=== PATIENT | female | born 1985 | race Caucasian/White ===

== ENCOUNTER → 2017-10-25 16:04 | Outpatient (CLI) | payer MEDICAID, SELFPAY ==
[2017-11-01 11:29] LABS: HPV APTIMA, High Risk Negative (Negative)
== END ==
PROVIDERS: Visit Provider Obstetrics & Gynecology
DX: Z01.419 Encounter for gynecological examination (general) (routine) without abnormal findings (principal)
CPT/HCPCS: 88175; G0145

== ENCOUNTER 2018-04-11 19:01 | Emergency (ER) | payer MEDICAID, SELFPAY ==
[2018-04-11 19:02] VITALS: BP 112/82; PULSE 97; RESP 18; TEMP 37; O2SAT 97; BMI 20.8
--- NOTE | 2018-04-11 20:06 | ED.DCSUM_ITS ---
- ER Visit Summary Date of Service: 04/11/18 Chief Complaint: Back pain History of Present Illness: The patient is a 32 F who states that she has low back pain. She notes radiation to the posterior aspect of her left thigh. She denies any muscle weakness. No bowel or bladder dysfunction. No loss of sensation. No fevers. She states she has a history of disc disease dating back approximately 13 years. She states this began 1 week ago has progressively worsened. Physical Examination: Afebrile vital signs are stable Gen: Well-nourished well-developed Head: Normocephalic atraumatic Eyes: Perrl EOMI ENT: TMs clear no rhinorrhea moist mucous membranes Neck: Supple no lymphadenopathy no JVD nontender CVS: Regular rate rhythm no murmurs normal S1-S2 Respiratory: No distress clear to auscultation bilaterally chest nontender Abdomen: Soft nontender nondistended normal bowel sounds no masses Back: Mild tenderness to palpation particularly on the right and left paraspinal musculature Extremity: Nontender no edema Skin: Normal color no rash Neuro: alert orientated ?3 CN II-XII intact normal strength sensation reflexes positive straight leg test at 35? Psych: Normal affect normal mood Emergency Department Course and Treatment: Patient appears to have acute on chronic sciatica. I did check an oars report as well as clinisync. These are negative. I will write the patient Valium a few OxyIR and ibuprofen. She is to follow-up with primary care doctor Impression: 1. Left sciatica This note was generated with [employer] dictation software. It may contain incorrect words, spelling, and punctuation that were not noted in review of the chart prior to signing ED Disposition - Plan for ED Patient: Disposition: Home or Assisted Living Chief Complaint: Back Instructions: ED Sciatica Prescriptions: Oxycodone [Oxyir] 5 mg PO Q6H PRN PRN 3 Days #12 tab PRN Reason: back pain Diazepam [Valium] 5 mg PO Q8 PRN #15 tab PRN Reason: Muscle Spasm Ibuprofen [Motrin] 800 mg PO TID PRN PRN #20 tab PRN Reason: Pain Additional Instructions: Follow Up with your primary care physician in 1 week
== END 2018-04-11 20:27 | disposition home or self-care (01) ==
PROVIDERS: Emergency Provider Emergency Medicine; Family Provider Internal Medicine; PCP Internal Medicine
DX: M54.42 Lumbago with sciatica, left side (principal); Z72.0 Tobacco use
CPT/HCPCS: 99282

== ENCOUNTER 2018-06-03 16:44 | Emergency (ER) | payer MEDICAID, SELFPAY ==
[2018-06-03 16:45] VITALS: BP 135/88; PULSE 93; RESP 14; TEMP 36.6; O2SAT 97; BMI 21.0
--- NOTE | 2018-06-03 17:42 | ED.VISSUMM ---
- ER Visit Summary Date of Service: 06/03/18 Chief Complaint: Neck and back pain History of Present Illness: The patient is a 32 F history of degenerative disc disease in her neck and back. States she had an MRI at 17 and again one in the last year or so. She is never had back surgery. She denies any recent fall or trauma or fever. States she awoke this morning and had neck and lower back pain. Denies any weakness or numbness or tingling to her upper or lower extremities. No bowel or bladder incontinence. Physical Examination: Well-appearing young female. Vital signs stable and afebrile. H EENT exam unremarkable. Neck except for the C1-2 region she has some mild lateral paraspinal tenderness. No signs of trauma. No bony deformity. She has full flexion-extension and rotation of her neck. No rigidity. Lungs clear all station bilaterally. Heart regular rate and rhythm no murmur. Abdomen soft and tender. Patient is moving all 4 extremities. The upper and lower extremities are both neurovascularly intact. She has normal 5 out of 5 carbider strength in both hands. Normal sensation. She has normal dorsi and plantar flexion both feet. Negative straight leg raise bilaterally. Sciatica or radiculopathy. Full range of motion both lower extremities. No cauda equina. No saddle anesthesia. Normal medial thigh sensation. Back she is some tenderness on the lower lumbar spine and right paraspinal soft tissue. There is no signs of redness, warmth or trauma. Neurologically she is awake and alert with no focal motor or sensory deficits. Test Results: None Emergency Department Course and Treatment: Discussed with patient options. She will be started on Naprosyn. Follow-up with her primary care physician in [place] if she is not improving or a spine surgeon for further evaluation. At this time she has absolutely no signs of spinal cord compression. Treatment Plan: Percent for pain and inflammation. Follow up with her doctor. Disposition: Discharge Impression: Acute neck and back pain with a history of degenerative disc disease. This note was generated with [employer] dictation software. It may contain incorrect words, spelling, and punctuation that were not noted in review of the chart prior to signing ED Disposition - Plan for ED Patient: Chief Complaint: Back Referrals: Benita Vizcarra MD [Primary Care Provider] -
--- NOTE | 2018-06-03 17:46 | ED.DCSUM_ITS ---
- ER Visit Summary Date of Service: 06/03/18 Chief Complaint: Neck and back pain History of Present Illness: The patient is a 32 F history of degenerative disc disease in her neck and back. States she had an MRI at 17 and again one in the last year or so. She is never had back surgery. She denies any recent fall or trauma or fever. States she awoke this morning and had neck and lower back pain. Denies any weakness or numbness or tingling to her upper or lower extremities. No bowel or bladder incontinence. Physical Examination: Well-appearing young female. Vital signs stable and afebrile. H EENT exam unremarkable. Neck except for the C1-2 region she has some mild lateral paraspinal tenderness. No signs of trauma. No bony deformity. She has full flexion-extension and rotation of her neck. No rigidity. Lungs clear all station bilaterally. Heart regular rate and rhythm no murmur. Abdomen soft and tender. Patient is moving all 4 extremities. The upper and lower extremities are both neurovascularly intact. She has normal 5 out of 5 professor of nursing strength in both hands. Normal sensation. She has normal dorsi and plantar flexion both feet. Negative straight leg raise bilaterally. Sciatica or radiculopathy. Full range of motion both lower extremities. No cauda equina. No saddle anesthesia. Normal medial thigh sensation. Back she is some tenderness on the lower lumbar spine and right paraspinal soft tissue. There is no signs of redness, warmth or trauma. Neurologically she is awake and alert with no focal motor or sensory deficits. Test Results: None Emergency Department Course and Treatment: Discussed with patient options. She will be started on Naprosyn. Follow-up with her primary care physician in [place] if she is not improving or a spine surgeon for further evaluation. At this time she has absolutely no signs of spinal cord compression. Treatment Plan: Percent for pain and inflammation. Follow up with her doctor. Disposition: Discharge Impression: Acute neck and back pain with a history of degenerative disc disease. This note was generated with [employer] dictation software. It may contain incorrect words, spelling, and punctuation that were not noted in review of the chart prior to signing ED Disposition - Plan for ED Patient: Chief Complaint: Back Referrals: Benita Vizcarra MD [Primary Care Provider] -
--- NOTE | 2018-06-03 17:46 | ED.DEP ---
ED Disposition - Plan for ED Patient: Disposition: Home or Assisted Living Chief Complaint: Back Instructions: ED Neck Back Pain General Prescriptions: Naproxen [Naprosyn] 500 mg PO BID PRN PRN #20 tab PRN Reason: Pain Referrals: Benita Vizcarra MD [Primary Care Provider] - 1 Week if not improving Additional Instructions: Hot shower warm bath to relax the muscles in your back and neck. Naprosyn for pain and inflammation. Follow-up with your doctor if not improving in 1 week. If you develop weakness, numbness or incontinence to return to the ER for further evaluation.
[2018-06-03 17:55] VITALS: BP 109/67; PULSE 84; RESP 15; O2SAT 98
== END 2018-06-03 17:56 | disposition home or self-care (01) ==
PROVIDERS: Emergency Provider Emergency Medicine; Family Provider Internal Medicine; PCP Internal Medicine
DX: M50.30 Other cervical disc degeneration, unspecified cervical region (principal); M51.36 Other intervertebral disc degeneration, lumbar region; G89.29 Other chronic pain
CPT/HCPCS: 99282

== ENCOUNTER 2018-10-26 19:22 | Emergency (ER) | payer MEDICAID, SELFPAY ==
[2018-10-26 19:23] VITALS: BP 131/89; PULSE 95; RESP 18; TEMP 37.1; O2SAT 99; BMI 20.2
[2018-10-26 20:14] LABS: Absolute Lymphocyte Count 2.03 X10^3/ul (0.83-4.51); Absolute Neutrophil Count 7.4 X10^3/uL (2.0-7.7); Basophil# 0.02 X10^3/uL; Basophil% 0.2 % (0-1); Eosinophil# 0.07 X10^3/uL; Eosinophils% 0.7 % (0-5); Hemoglobin 14.6 g/dl (12.0-15.0); Lymphocyte # 2.03 X10^3/ul (4.0); Lymphocyte % 20.3 % (19-41); Mean Corp Hgb Conc 33.2 g/gl (32-36); Mean Corpuscular Hgb 30.9 pg (27.0-32.0); Mean Corpuscular Volume 93.2 fL (81-99); Mean Platelet Vol. 9.2 fl (6.2-12.0); Monocyte# 0.49 X10^3/uL; Monocyte% 4.9 % (0-10); Neutrophil # 7.39 X10^3/uL (2.7-7.7); Neutrophil % 73.8 % (47-70); Platelet Count 295 K/mm3 (150-450); RBC Distribution Width CV 13.1 % (11.6-14.6); Red Blood Count 4.72 M/mm3 (4.2-5.4)
[2018-10-26 20:16] LABS: POSITIVE COUNT NO; POSITIVE DIFFERENTIAL NO; POSITIVE MORPHOLOGY NO
[2018-10-26 20:17] LABS: Anion Gap 7 (5-15); BUN 12 mg/dL (7-18); BUN/Creat Ratio 16.3 RATIO (10-20); Calcium,Total 8.9 mg/dL (8.5-10.1); Chloride 105 mmol/L (98-107); Creatinine, Serum 0.73 mg/dL (0.55-1.02); EST Glomerular Filtration Rate 96 mL/min (>60); Est Glom Filt Rate - Afr Amer 116 mL/min (>60); Estimated Creatinine Clearance 96.79 ml/min; Glucose 93 mg/dL (74-106); Potassium 3.3 mmol/L (3.5-5.1); Sodium Level 140 mmol/L (136-145)
[2018-10-26 20:35] LABS: Pregnancy, Serum, hCG Quali. NEGATIVE Negative (0-9 Nonpreg)
--- NOTE | 2018-10-26 21:43 | US_ITS ---
HISTORY: PAbdominal PainUS - GB, Liver, Abdomen TECHNIQUE: Transabdominal ultrasound was performed with real-time and static murphy-scale imaging. COMPARISON: None FINDINGS: # of images incl. paperwork: 85 Liver: There is normal echogenicity of the liver. The bile ducts are within normal limits. There is no demonstrated mass lesion. Gallbladder: The gallbladder is partially contracted. The gallbladder wall measures 2 mm. There is a negative sonographic Roach's sign. There is no pericholecystic fluid. There are no gallstones. Common Bile Duct: The common bile duct measures 3 mm. Pancreas: There is normal echogenicity of the pancreas. There is no demonstrated pancreatic mass or cyst. Right Kidney: Normal size of the right kidney. The right kidney measures 11.4 x 5.1 x 3.7 cm. Normal renal cortex. There is no demonstrated renal mass or cyst. There is no right hydronephrosis. US/Gallbladder IMPRESSION: Contracted gallbladder. Otherwise unremarkable right upper quadrant ultrasound. at 2324 Reported and signed by: Abebe Shelley MD Electronically Signed: Abebe Shelley, at 23:23 EDT Tel , Service support ,
[2018-10-26 22:22] LABS: Lipase 106 U/L (73-393)
[2018-10-26 22:26] LABS: AST(SGOT) 15 U/L (15-37); Alanine Aminotransfer ALT/SGPT 27 U/L (13-56); Alkaline Phosphatase 54 U/L (45-117); Bilirubin, Direct 0.08 mg/dL (0.00-0.30); Globulin 3.3 g/dL (2.2-4.2); Protein, Total 7.3 g/dL (6.4-8.2)
[2018-10-26] MEDS: Ondansetron 4 MG/2 ML Vial IV (23:00)
[2018-10-26] MEDS: Morphine 4 MG/ML Syringe IV (23:00)
[2018-10-26 23:01] VITALS: BP 144/99; PULSE 84; RESP 18; O2SAT 97
--- NOTE | 2018-10-26 23:06 | ED.DCSUM_ITS ---
- ER Visit Summary Date of Service: 10/26/18 Chief Complaint: Abdominal pain History of Present Illness: The patient is a 33 F presenting with abdominal pain. Patient states this has been ongoing for the past 3 days. Pain is in the right upper quadrant. She has associated nausea with no vomiting. She has had mild diarrhea. Denies blood in her stool. Denies fever. She has had the symptoms in the past but had no known cause at this time. Denies other complaints. Physical Examination: Vitals are stable. Patient is afebrile. Alert no acute distress. HEENT exam is unremarkable. Neck is supple. Lungs are clear and equal bilaterally. Heart is regular rate and rhythm. Abdomen is soft right upper quadrant tenderness with no rebound or guarding Extremities are unremarkable. Skin is warm and dry. No focal neurologic deficit. Remainder of exam is unremarkable. Emergency Department Course and Treatment: Patient was given morphine, Zofran IV. CBC, chemistries unremarkable other than potassium 3.3. Liver lipase are normal. HCG negative. Gallbladder ultrasound shows contracted gallbladder. Otherwise unremarkable right upper quadrant ultrasound. On reevaluation, patient is resting comfortably. She is given a prescription for Pepcid. She is advised to follow-up with her primary care physician. Advised return to ED for worsening complaints. Disposition: Discharge home Impression: Abdominal pain This note was generated with [employer] dictation software. It may contain incorrect words, spelling, and punctuation that were not noted in review of the chart prior to signing ED Disposition - Plan for ED Patient: Instructions: ED Abdominal Pain Unkn Cause Prescriptions: Famotidine [Pepcid] 20 mg PO BID #28 tablet Referrals: Benita Vizcarra MD [Primary Care Provider] -
--- NOTE | 2018-10-26 23:56 | ED.DEP ---
ED Disposition - Plan for ED Patient: Instructions: ED Abdominal Pain Unkn Cause Prescriptions: Famotidine [Pepcid] 20 mg PO BID #28 tablet Referrals: Benita Vizcarra MD [Primary Care Provider] -
[2018-10-27 00:02] VITALS: BP 119/88; PULSE 82; RESP 16; O2SAT 96
== END 2018-10-27 00:22 | disposition home or self-care (01) ==
PROVIDERS: Emergency Provider Emergency Medicine; Family Provider Internal Medicine; PCP Internal Medicine
DX: R10.11 Right upper quadrant pain (principal); R11.0 Nausea; Z87.891 Personal history of nicotine dependence
CPT/HCPCS: 76705; 80048; 80076; 83690; 84703; 85025; 96374; 96375; 99283; A4216; J2405

== ENCOUNTER 2019-11-28 12:47 | Emergency (ER) | payer MEDICAID, SELFPAY ==
[2019-11-28 12:48] VITALS: BP 144/107; PULSE 105; RESP 16; TEMP 36.4; O2SAT 100; BMI 20.9
--- NOTE | 2019-11-28 13:03 | ED.VIS.GEN ---
History of Present Illness Chief Complaint: Lower Extremity Injury Narrative: 34-year-old female presents with right knee pain. She tripped in her living room and fell on carpet 2 days ago. She has had mild pain since then. This morning she noticed redness and warmth around the abrasion that she sustained over the patella. No pain with range of motion now. She can still walk without much trouble. Onset of symptoms has been gradual. Severity is mild. No history of prior knee surgery and no history of septic joint. No fever. Capacity - Capacity Assessment Tool Can the patient make a choice & communicate that choice?: Yes Past Medical History - Allergies and Home Meds Allergies/Adverse Reactions: Allergies latex Allergy (Verified 11/28/19 12:48) Rash Sulfa (Sulfonamide Antibiotics) Allergy (Verified 11/28/19 12:48) Hives sulfamethoxazole [From Bactrim] Allergy (Verified 11/28/19 12:48) Hives trimethoprim [From Bactrim] Allergy (Verified 11/28/19 12:48) Hives Primary Care Physician: Benita Vizcarra MD [Primary Care Provider] - Prior records reviewed: Yes Smoking Status: Current every day smoker Review of Systems ROS: Unable to Obtain General: Denies: Chills, Fever, Sweats Eyes: Denies: Visual changes - bilaterally, Diplopia ENT: Denies: Rhinorrhea, Sore throat Cardiovascular: Denies: Chest pain, Palpitations Respiratory: Denies: Dyspnea, Cough, Dyspnea on exertion Gastrointestinal: Denies: Abdominal pain, Nausea, Vomiting, Diarrhea, Melena, Hematochezia Genitourinary: Denies: Dysuria, Hematuria, Frequency Musculoskeletal: Reports: Extremity Pain, - - right knee pain and redness. Denies: Back pain Skin: Denies: Rash, Wounds Neurological: Denies: Headache, Weakness, Numbness Physical Exam Vital Signs/Narrative: Vital Signs Temp Pulse Resp BP Pulse Ox 11/28/19 12:48 97.5 F L 105 H 16 144/107 H 100 General: Well nourished, Well developed, No Acute Distress Head: Normocephalic, Atraumatic Eyes: Perrl, EOMI ENT: Moist mucous membranes, No rhinorrhea Neck: Supple, Nontender Cardiovascular: Regular rate, Regular rhythm, No murmurs Respiratory: No distress, CTA bilaterally, Chest nontender Abdomen: Soft, Nontender, Nondistended, Normal bowel sounds Back: Nontender, Normal Inspection Extremities: Tenderness, - - She has mild tenderness over the prepatellar bursa. There is no pain with range of motion. Superficial abrasion. No fluctuance. Skin: Normal color, No rash, - - Mild erythema and warmth over the prepatellar bursa but no full-thickness cellulitis. Neurological: Alert, Oriented x3, Cranial nerves II-XII grossly intact, Normal Strength, Normal Sensation Psychological: Normal affect, Normal Mood Diagnostic/Tx/Re-eval - Medical Decision Making Right knee x-ray was interpreted independently by me is negative for acute process. She has no evidence of intra-articular infection. No pain with range of motion. No pain with short arc motion. No circumferential erythema, just over the patellar surface. She appears to have a patellar or prepatellar bursitis but I cannot palpate an abscess. There could be an early infection as there is slight erythema and warmth. No streaks of lymphangitis. We discussed options and elected to treat her with oral antibiotics and close orthopedic follow-up. I explained return precautions including coming back tomorrow if she is not improving, sooner if she gets rapidly worse. ED Disposition - Plan for ED Patient: Disposition: Home or Assisted Living Diagnosis: Patellar bursitis of right knee Instructions: ED Bursitis, ED Cellulitis Prescriptions: Doxycycline 100 mg PO BID #20 capsule Referrals: Benita Vizcarra MD [Primary Care Provider] -
--- NOTE | 2019-11-28 13:20 | RAD_ITS ---
STUDY: X-RAY - RIGHT KNEE REASON FOR EXAM: Female, 34 years old. FALL YESTERDAY; PAIN OVER PATELLA AND ANTERIOR KNEE TECHNIQUE: 4 view(s) of the knee. COMPARISON: None. FINDINGS: Normal visualized distal femur. Normal visualized proximal tibia and fibula. Normal proximal tibiofibular articulation. Normal medial femorotibial compartment. Normal lateral femorotibial compartment. Normal patellofemoral articulation. Prepatellar and infrapatellar soft tissue skin thickening. RAD/Knee 4 or More Views IMPRESSION: 1. Pronounced prepatellar and infrapatellar skin thickening. 2. No acute fracture or dislocation of the right knee. Electronically Signed: Darrick Baig MD at 15:14 EDT , Service support ,
--- NOTE | 2019-11-28 14:09 | ED.VIS.GEN ---
History of Present Illness Chief Complaint: Lower Extremity Injury Past Medical History - Allergies and Home Meds Allergies/Adverse Reactions: Allergies latex Allergy (Verified 11/28/19 12:48) Rash Sulfa (Sulfonamide Antibiotics) Allergy (Verified 11/28/19 12:48) Hives sulfamethoxazole [From Bactrim] Allergy (Verified 11/28/19 12:48) Hives trimethoprim [From Bactrim] Allergy (Verified 11/28/19 12:48) Hives Primary Care Physician: Benita Vizcarra MD [Primary Care Provider] - Smoking Status: Current every day smoker Physical Exam Vital Signs/Narrative: Vital Signs Temp Pulse Resp BP Pulse Ox 11/28/19 12:48 97.5 F L 105 H 16 144/107 H 100 ED Disposition - Plan for ED Patient: Disposition: Home or Assisted Living Diagnosis: Patellar bursitis of right knee Instructions: ED Bursitis, ED Cellulitis Prescriptions: Doxycycline 100 mg PO BID #20 cap Prescription Printed Referrals: Jose Martin Greenberg MD [STAFF PHYSICIAN] - As soon as possible
[2019-11-28] MEDS: Doxycycline 100 MG CAPSULE PO (14:13)
[2019-11-28 14:16] VITALS: RESP 16
--- NOTE | 2019-11-28 14:16 | ED.RN ---
REVIEWED D/C INSTRUCTIONS, FOLLOW UP CARE, PRESCRIPTION, AND S/S THAT WOULD WARRANT A RETURN TO THE ED WITH PT. PT VERBALIZED AN UNDERSTANDING AND DENIES FURTHER QUESTIONS FOR THIS RN. PT SKIN P/W/D, RESP EVEN AND UNLABORED, PT A&O X 3, NO DISTRESS NOTED. PT AMBULATED OUT OF ED, GAIT STEADY.
--- OUTSIDE RECORDS SUMMARY | 2020-05-03 08:01 | XMS RPT_ITS | CCD ---
:1985 External Reference #:[id number] Author Organization [facility] Providers Name Role Phone Thomas Vizcarra Primary Care Provider Romana Velasco Unavailable RAZ RIVERA Attending Unavailable Allergies Reported Allergen Reaction(s) Severity Date of Onset Location Latex Translations: [ LATEX] Rash 06-26-2017 - [facility] (80219) [facility] Trimethoprim Translations: [ (96331) SULFAMETHOXAZOLE-TRIMETHOPRIM ] Sulfonamides (Antibiotic) [facility] 08-23-2016 - [facility] Translations: [ SULFA (66556 ) (SULFONAMIDE ANTIBIOTICS)] Medications Medication Name Sig Date Prescriber Location Acetaminophen acetaminophen (TYLENOL) 325 [facility] Provider [facility] mg cap Take by mouth. 0 (441 95) Active Comment: Take by mouth. Amphetamine dextroamphetamine-amphetamine 08-28-2017 [facility] [place] aspartate / (ADDERALL XR) 30 mg 24 hr Provider Moris luis Amphetamine Sulfate capsule Take 30 mg by mouth once (06631) / Dextroamphetamine daily. 0 08/28/2017 Active saccharate / Dextroamphetamine Sulfate Comment: Take 30 mg by mouth once bam pineda. Benzocaine / benzocaine-menthol 04-29-2019 - Micki Hong Menthol (CEPACOL SORE THROAT, 04-11-2020 [facility] (63511) LETA-MEN,) 15-2.6 mg lozg lozenge Indications: Sore throat Take 1 Lozenge by mouth every 3 hours as needed. 60 Lozenge 0 04/29/2019 04/11/2020 Discontinued (Course of therapy completed) Comment: Take 1 Lozenge by mouth ever y 3 hours as needed. Citalopram citalopram (CELEXA) 20 mg 04-05-2020 [facility] Provider [facility] (43168) tablet TAKE 1 & 1/2 (ONE AND ONE-HALF) TABLETS BY MOUTH ONCE DAILY 0 04/05/2020 Active Comment: TAKE 1 & 1/2 (ONE AND ONE-LEES LF) TABLETS BY MOUTH ONCE DAILY cyclobenzaprine cyclobenzaprine 11-09-2019 - Yari Hong (FLEXERIL) 10 mg 04-08-2020 [facility] (4 4783) tablet Take 1 tablet by mouth every 8 hours as needed for Muscle Spasm (or pain). 14 tablet 0 11/09/2019 04/08/2020 Discontinued (Changing Therapy/Dosage Form) Comment: Take 1 tablet by mouth every 8 hours as needed for Muscle Spasm (or pain). Ethinyl Estradiol / DASETTA , 28, 04-03-2018 [facility] Provider [facility] Norethindrone 0.5/0.75/1 mg- 35 (84595) mcg per tablet Take 1 tablet by mouth once daily. 3 04/03/2018 Active DASETTA , 28, 0.5/0.75/1 mg- 35 04-03-2018 [facility] Provide [facility] (55758) mcg per tablet Take 1 tablet by mouth once daily. 3 04/03/2018 Active DASETTA , 28, 0.5/0.75/1 mg- 35 04-03-2018 [facility] Provide r [facility] (45468) mcg per tablet Take 1 tablet by mouth once daily. 3 04/03/2018 Active DASETTA , 28, 0.5/0.75/1 mg- 35 04-03-2018 [facility] Provide [facility] (46286) mcg per tablet Take 1 tablet by mouth once daily. 3 04/03/2018 Active DASETTA , 28, 0.5/0.75/1 mg- 35 04-03-2018 [facility] Provide r [facility] (80659) mcg per tablet Take 1 tablet by mouth once daily. 3 04/03/2018 Active DASETTA 7, 28, 0.5/0.75/1 mg- 35 04-03-2018 [facility] Provide [facility] (23298) mcg per tablet Take 1 tablet by mouth once daily. 3 04/03/2018 Active DASETTA 7, 28, 0.5/0.75/1 mg- 35 04-03-2018 [facility] Provide r [facility] (10055) mcg per tablet Take 1 tablet by mouth once daily. 3 04/03/2018 Active Comment: Take 1 tablet by mouth once daily. FLUoxetine FLUoxetine (PROZAC) 20 mg 04-11-2020 [facility] Provider [facility] capsule Take 20 mg by mouth (50854) once daily. 0 04/11/2020 Discontinued (Discontinued by Patient) Comment: Take 20 mg by mouth once bam ly. gabapentin gabapentin 04-22-2019 - Rocio Steele [facility] inic (NEURONTIN) 300 mg 04-11-2020 (58729) capsule Indications: Acute left-sided low back pain with left-sided sciatica Take 1 capsule by mouth three times daily for 30 days. 90 capsule 0 04/22/2019 04/11/2020 Discontinued (Course of therapy completed) Comment: Take 1 capsule by mouth thre e times daily for 30 days. hydrOXYzine hydrOXYzine pamoate 04-01-2020 [facility] Provider Alverto Huerta (VISTARIL) 25 mg capsule (44 195) TAKE 1 CAPSULE BY MOUTH TWICE DAILY NEEDED FOR ANXIETY or sleep 0 04/01/2020 Active Comment: TAKE 1 CAPSULE BY MOUTH TWIC E DAILY NEEDED FOR ANXIETY or sleep Naproxen naproxen (NAPROSYN) 11-09-2019 - Yari Harper x [facility] 500 mg tablet Take 1 04-11-2020 (49098) tablet by mouth twice daily as needed. TAKE WITH FOOD 14 tablet 0 11/09/2019 04/11/2020 Discontinued (Course of therapy completed) Comment: Take 1 tablet by mouth twice daily as needed. TAKE WITH FOOD Omeprazole omeprazole (PRILOSEC) 04-14-2019 - Micki Vizcarra Cl [facility] 20 mg capsule 04-11-2020 (41985) Indications: Right sided abdominal pain Take 1 capsule by mouth once daily. 30 capsule 2 04/14/2019 04/11/2020 Discontinued (Course of therapy completed) Comment: Take 1 capsule by mouth once daily. 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 (56843) Indications: Neck pain , Myofascial pain 1 Package twice daily. 1 Device 0 04/22/2019 Active TENS unit and [facility] 04-22-2019 [facility] (88019) Indications: Neck pain , Myofascial pain 1 Package twice daily. 1 Device 0 04/22/2019 Active TENS unit and [facility] 04-22-2019 [facility] (20539) Indications: Neck pain , Myofascial pain 1 Package twice daily. 1 Device 0 04/22/2019 Active TENS unit [facility] 04-22-2019 [facility] (03639) Indications: Neck pain , Myofascial pain 1 Package twice daily. 1 Device 0 04/22/2019 Active TENS unit [facility] 04-22-2019 [facility] (56088) Indications: Neck pain , Myofascial pain 1 Package twice daily. 1 Device 0 04/22/2019 Active TENS unit [facility] 04-22-2019 [facility] (20908) Indications: Neck pain , Myofascial pain 1 Package twice daily. 1 Device 0 04/22/2019 Active TENS unit [facility] 04-22-2019 [facility] (18508) Indications: Neck pain , Myofascial pain 1 Package twice daily. 1 Device 0 04/22/2019 Active Comment: 1 Package twice daily. tiZANidine tiZANidine (ZANAFLEX) 4 04-08-2020 Neeta A (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 7 tablet 0 04/08/2020 Active Comment: Take 0.5 tablets by mouth at bedtime as needed. Problems Category Problem Name Status Date Location Abdominal pain Right lower quadrant Active 10-30-2018 - [facility] pain (90085) Other circulatory Elevated blood-pressure Active [facility] disease reading without (20139) diagnosis of hypertension Other liver diseases Other specified Active 10-30-2018 - [facility] diseases of liver (88933) Spondylosis; Lumbar radiculopathy Active [facility] intervertebral disc (12755) disorders; other back problems Substance-related Cigarette smoker Active [facility] disorders (32974) Unclassified Patient encounter Active [facility] status (09563) Results Result Name Value Range Unit Interpretation Flag Date Location [facility] 2020[facility]04[facility]28 [facility]AG[facility]) Normal 0 [facility] JEIMY MORALES ([id number]) 1985 F [facility] Time Provider Department (79613) 04/28/20 MICKI VIZCARRAINTNIRAV During your visit today, we recorded the following informati on about you: Timur Vernon CMA 04/28/2020 1:13 PM Signed ----- Message from Micki Vizcarra sent at 04/28/2020 10:09 AM EDT ----- Labs are fairly unremarkable. No changes in management. Timur Vernon CMA 04/28/2020 1:14 PM Signed Left message informing patient of result s and no changes in management at this time. Timur Vernon CMA Allergies As of Date: 04/28/2020 Noted Allergy Reaction BACTRIM (SULFAMETHOXAZOLE-TRIMETH*08/23/2016 4 - Hives LATEX 06/26/2017 2 - Rash SULFA (SULFONAMIDE ANTIBIOTICS) 08/23/2016 4 - Hives Date Reviewed: 04/08/2020 Reviewed by: Neeta Patino (Architecture [employer]ician [employer]) KATY Gonzalez - Fully Assess ed Reason for Visit: Results [95] Prescriptions as of 04/28/2020 Sig: CITALOPRAM 20 MG TABLET TAKE 1 AND 1/2 (ONE AND ONE-NELY* HYDROXYZINE PAMOATE 25 MG CAP* TAKE 1 CAPSULE BY MOUTH TWICE * PREDNISONE 10 MG TABLET Take 4 tablets for 3 days, th* TIZANIDINE 4 MG TABLET Take 0.5 tablets by mouth at * TENS UNIT AND ELECTRODES COMB* 1 Package twice daily. ACETAMINOPHEN 325 MG CAPSULE Take by mouth. DASETTA (28) 0.5 MG(7)/* Take 1 tablet by mouth once d * DEXTROAMPHETAMINE-AMPHETAMINE* Take 30 mg by mouth once dina * Problem List As Of Date: 04/28/2020 (None) Encounter Status:Closed by TIMUR VERNON on 04/28/20 CNPN Telephone (AGINTMLW) Normal [address] [place] [address] Clinic JEIMY MORALES ([id number]) 1985 [facility] Date Time Provider Department (35535) 04/28/20 [facility] During your visit today, we recorded the following informati on about you: Rosanna Staton 04/28/2020 3:15 PM Signed No Show Documentation Jeimy Morales no showed for an appointment on 04/28/2020 chris Vizcarra MD at 11:40. She was scheduled for follow up for back pain. I called and was unable to reach patient. I mailed a l diamante letting her know to reschedule appointment. Resources discussed/offered to patient: N/A No show determined to be fault of patient: N/A This is the patients third no show in the last 12 months. Patient was rescheduled for waiting for patient to call [facility]. Letter mailed : Yes Is this the Third or Fourth No Show? 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 ACETAMINOPHEN 325 MG CAPSULE Take by mouth. DASETTA /01/25 (28) 0.5 MG(7)/* Take 1 tablet by mouth once d * DEXTROAMPHETAMINE-AMPHETAMINE* Take 30 mg by mouth once dina * Problem List As Of Date: 04/28/2020 (None) Encounter Status:Closed by ROSANNA STATON on 04/28/20 [facility] on 2 TSH Qn 1.130 0.270-4.200 uU/mL Normal 04-27-2020 [facility] (04110) Comment: Order Comment: Specimen Type : BLOOD SPECIMEN Result Comment: If the patie nt is , TSH reference range varies by gestational period: First Trimester (weeks 9-12) : 0.180-2.990 mcIU/mL Second Trimester: 0.110-3.98 0 mcIU/mL Third Trimester: 0.480-4.710 mcIU/mL Sumeet Dean, et al. A Practica l Approach for the Verifications and Determination of Site- and Trimester-Specific Reference Intervals for Thyroid Function tests in . Thyroid, 2019:29:3:412-420. Eulogio Tavares, et al. 2017 Guide lines of the [place] Thyroid Association for the Diagnosis and Management of Thyroid Disease during and the . Thyroid, 2017:27:3:315-389. Performed By: #### 99673-2, 3016-3, LIPB #### [facility] CLIA [id number] [address] [place] [address] [place] lipid panel basic o n 2020-04-27 Cholesterol [Mass/Vol] 197 <200 mg/dL Normal 020 [facility] (04937) Comment: Order Comment: Specimen Type : BLOOD SPECIMEN Result Comment: <200 mg/dL, Desirable 200-239 mg/dL, Borderline hi gh >239 mg/dL, High Performed By: #### 93691-4, 3016-3, LIPB #### [facility] CLIA [id number] [address] [place] [address] [place] Cholesterol in HDL [Mass/Vol] 70 >39 mg/dL Normal 04-27-2020 [facility] (00 000) Comment: Order Comment: Specimen Type : BLOOD SPECIMEN Result Comment: 40-59 mg/dL, Acceptable >59 mg/dL, High: Negative ri sk factor for coronary heart disease <40 mg/dL, Low: Positive ris k factor for coronary heart disease Performed By: #### 47811-3, 3016-3, LIPB #### [facility] CLIA [id number] [address] [place] [address] [place] Cholesterol in LDL [Mass/Vol] 102 <100 mg/dL High 04-27-2020 [facility] (00 000) Comment: Order Comment: Specimen Type : BLOOD SPECIMEN Result Comment: <100 mg/dL, Optimal 100-129 mg/dL, Near optimal/ above optimal 130-159 mg/dL, Borderline hi gh 160-189 mg/dL, High >189 mg/dL, Very high Secondary prevention optimal LDL Cholesterol levels are recommended to be < 70 mg/dL Performed By: #### 17442-8, 3016-3, LIPB #### [facility] CLIA [id number] [address] [place] [address] [place] Cholesterol in LDL/Cholesterol 1.46 <2.54 Normal 04-27-2020 [facility] in HDL [Mass ratio] Center (60082) Comment: Order Comment: Specimen Type : BLOOD SPECIMEN Result Comment: Reference: 1. National Cholesterol Educ ation Program ATP III Guideline At-A-Glance Quick Desk Reference: National Heart, Lung, and Blood [place]. National Institutes of Health. 2001: NIH Publication No. 01-3305. 2. An International Atherosc lerosis Society position paper: global recommendations for the management of dyslipidemia: executive summary, Atherosclerosis. 2014: 232(2):410-413. Performed By: #### 37035-6, 3016-3, LIPB #### [facility] CLIA [id number] [address] [place] [address] [place] Cholesterol in VLDL 25 <30 mg/dL Normal 04-27-2020 [facility] [Mass/Vol] [place] (0 0000) Comment: Order Comment: Specimen Type : BLOOD SPECIMEN Performed By: #### 48713-6, 3016-3, LIPB #### [facility] CLIA [id number] [address] [place] [address] [place] Cholesterol non HDL 127 <130 mg/dL Normal 04-27-2020 [facility] [Mass/Vol] [place] (0 0000) Comment: Order Comment: Specimen Type : BLOOD SPECIMEN Result Comment: <130 mg/dL, Optimal 130-159 mg/dL, Near optimal/ above optimal 160-189 mg/dL, Borderline hi gh 190-219 mg/dL, High >219 mg/dL, Very high Secondary prevention optimal non HDL Cholesterol levels are recommended to be <100 mg/dL Performed By: #### 62184-7, 3016-3, LIPB #### [facility] CLIA [id number] [address] [place] [address] [place] Cholesterol.total/Cholesterol in HDL 2.81 <5.10 Nor mal 04-27-2020 [facility] [Mass ratio] [facility] (96255) Comment: Order Comment: Specimen Type : BLOOD SPECIMEN Performed By: #### 62699-9, 3016-3, LIPB #### [facility] CLIA [id number] [address] [place] [address] [place] FASTING TIME 10 hrs Normal 04-27-2020 [facility] (77869) Comment: Order Comment: Specimen Type : BLOOD SPECIMEN Performed By: #### 97540-7, 3016-3, LIPB #### [facility] CLIA [id number] [address] [place] [address] [facility] Triglyceride [Mass/Vol] 124 <150 mg/dL Normal 2019 [facility] (04102) Comment: Order Comment: Specimen Type : BLOOD SPECIMEN Result Comment: <150 mg/dL, Normal 150-199 mg/dL, Borderline hi gh 200-499 mg/dL, High >499 mg/dL, Very high Performed By: #### 39085-5, 3016-3, LIPB #### [facility] CLIA [id number] [address] [place] [address] [facility] comp metab 2000 pnl serpl on 2020-04-27 Albumin [Mass/Vol] 4.6 3.9-4.9 g/dL Normal 04-27-2020 [facility] (08752) Comment: Order Comment: Specimen Type : BLOOD SPECIMEN Performed By: #### 82990-3, 3016-3, LIPB #### [facility] CLIA [id number] [address] [place] [address] [facility] ALP [Catalytic activity/Vol] 61 34-123 U/L Normal 1 [facility] (00 000) Comment: Order Comment: Specimen Type : BLOOD SPECIMEN Performed By: #### 20179-3, 3016-3, LIPB #### [facility] CLIA [id number] [address] [place] [address] [facility] ALT With P-5'-P [Catalytic 31 7-38 U/L Normal [facility] Medical activity/Vol] Center (62679) Comment: Order Comment: Specimen Type : BLOOD SPECIMEN Performed By: #### 42842-8, 3016-3, LIPB #### [facility] CLIA [id number] [address] [place] [address] [facility] Anion gap [Moles/Vol] 8 9-18 mmol/L Low 04-27-20 [facility] (85058) Comment: Order Comment: Specimen Type : BLOOD SPECIMEN Performed By: #### 33567-6, 3016-3, LIPB #### [facility] CLIA [id number] [address] [place] [address] [place] AST With P-5'-P [Catalytic 25 13-35 U/L Normal [facility] activity/Vol] Center (49718) Comment: Order Comment: Specimen Type : BLOOD SPECIMEN Performed By: #### 89017-0, 3016-3, LIPB #### [facility] CLIA [id number] [address] [place] [address] [place] Bilirubin [Mass/Vol] 0.3 0.2-1.3 mg/dL Normal 0 [facility] (23044) Comment: Order Comment: Specimen Type : BLOOD SPECIMEN Performed By: #### 39042-1, 3016-3, LIPB #### [facility] CLIA [id number] [address] [place] [address] [place] Calcium [Mass/Vol] 9.3 8.5-10.2 mg/dL Normal 04-27-2020 [facility] (12040) Comment: Order Comment: Specimen Type : BLOOD SPECIMEN Performed By: #### 35829-4, 3016-3, LIPB #### [facility] CLIA [id number] [address] [place] [address] [place] Chloride [Moles/Vol] 99 97-105 mmol/L Normal 0 [facility] (73952) Comment: Order Comment: Specimen Type : BLOOD SPECIMEN Performed By: #### 18520-3, 3016-3, LIPB #### [facility] CLIA [id number] [address] [place] [address] [place] CO2 [Moles/Vol] 28 22-30 mmol/L Normal 04-27-2020 [facility] (94022) Comment: Order Comment: Specimen Type : BLOOD SPECIMEN Performed By: #### 72794-4, 3016-3, LIPB #### [facility] CLIA [id number] [address] [place] [address] [place] Creatinine [Mass/Vol] 0.76 0.58-0.96 mg/dL Normal 04-27-20 [facility] (00 000) Comment: Order Comment: Specimen Type : BLOOD SPECIMEN Performed By: #### 82258-1, 3016-3, LIPB #### [facility] CLIA [id number] [address] [place] [address] [place] GFR/1.73 sq M predicted >60 mL/min/{1.73_m2} Normal 04-27-2020 [facility] among blacks [facility] (S/P/Bld) [Vol (0000 0) rate/Area] Comment: Order Comment: Specimen Type : BLOOD SPECIMEN Performed By: #### 02126-1, 3016-3, LIPB #### [facility] CLIA [id number] [address] [place] [address] [place] GFR/1.73 sq M predicted >60 mL/min/{1.73_m2} Normal 04-27-2020 [facility] among non-blacks [facility] (S/P/Bld) [Vol (0000 0) rate/Area] Comment: Order Comment: Specimen Type : BLOOD SPECIMEN Result Comment: eGFR (Estima karen GFR) Units of measure: mL/min/1.73 meters squared eGFR is derived from the ree xpressed MDRD Study equation using the following parameters: serum creatinine, age, gender and race. The creatinine assay has been calibrated to be traceable to IDMS. An eGFR <60 mL/min/1.73m2 for >3 mo nths is consistent with chronic kidney disease. Refer to KDOQI guidelines for clinical interpretation. In patients with unstable renal function, e.g. those with acute k idney injury, the eGFR may n ot accurately reflect actual GFR. Performed By: #### 90751-6, 3016-3, LIPB #### [facility] CLIA [id number] [address] [place] [address] [place] Glucose [Mass/Vol] 90 74-99 mg/dL Normal 04-27-2020 [facility] (10903) Comment: Order Comment: Specimen Type : BLOOD SPECIMEN Result Comment: The [place] Diabetes Association (ADA) provides guidance for cutoff values for fasting glucose and random glucose. The ADA defines fasting as no caloric intake for at least 8 hours. Fas ting plasma glucose results between 100 to 125 mg/dL indicate increased risk for diabetes (prediabetes). Fasting plasma glucose resul ts greater than or equal to 126 mg/dL meet the criteria for diagnosis of diabetes. In the absence of unequivocal hyperglycemia, results should be confirmed by repeat testing. In a patient with classic s ymptoms of hyperglycemia or hyperglycemic crisis, random plasma glucose results greater than or equal to 200 mg/dL meet the criteria for diagnosis of diabetes. Reference: Standards of [facility] Care in Diabetes 2016, [place] Diabetes Association. Diabetes Care. 2016.39(Suppl 1). Performed By: #### 58327-3, 3016-3, LIPB #### [facility] CLIA [id number] [address] [place] [address] [place] Potassium [Moles/Vol] 4.2 3.7-5.1 mmol/L Normal 04-27-20 [facility] (00 000) Comment: Order Comment: Specimen Type : BLOOD SPECIMEN Performed By: #### 52163-1, 3016-3, LIPB #### [facility] CLIA [id number] [address] [place] [address] [place] Protein [Mass/Vol] 7.2 6.3-8.0 g/dL Normal 04-27-2020 [facility] (27542) Comment: Order Comment: Specimen Type : BLOOD SPECIMEN Performed By: #### 94666-7, 3016-3, LIPB #### [facility] CLIA [id number] [address] [place] [address] [place] Sodium [Moles/Vol] 135 136-144 mmol/L Low 04-27-2020 [facility] (73135) Comment: Order Comment: Specimen Type : BLOOD SPECIMEN Performed By: #### 29332-6, 3016-3, LIPB #### [facility] CLIA [id number] [address] [place] [address] [facility] Urea nitrogen [Mass/Vol] 11 7-21 mg/dL Normal 04-27 [facility] (61610) Comment: Order Comment: Specimen Type : BLOOD SPECIMEN Performed By: #### 29053-1, 3016-3, LIPB #### [facility] CLIA [id number] [address] [place] [address] [place] cbc (hemogram) bld auto on 2020-04-27 Erythrocyte distribution 14.8 11.5-15.0 % Normal 04-27 [facility] (RBC) [Ratio] Center (68838) Comment: Order Comment: Specimen Type : BLOOD SPECIMEN Performed By: #### 36973-1 # ### [facility] CLIA [id number] [address] [place] [address] [place] [facility] Hematocrit (Bld) [Volume 44.0 36.0-46.0 % Normal 04-27 [facility]] [place] (00 000) Comment: Order Comment: Specimen Type : BLOOD SPECIMEN Performed By: #### 00138-1 # ### [facility] CLIA [id number] [address] [place] [address] [facility] Hemoglobin (Bld) 14.2 11.5-15.5 g/dL Normal 04-27-2020 [facility] [Mass/Vol] Center (0 0000) Comment: Order Comment: Specimen Type : BLOOD SPECIMEN Performed By: #### [id number] # ### [facility] CLIA [id number] [address] [place] [address] [facility] MCH (RBC) [Entitic mass] 31.1 26.0-34.0 pg Normal 04-27 [facility] (00 000) Comment: Order Comment: Specimen Type : BLOOD SPECIMEN Performed By: #### [id number] # ### [facility] CLIA [id number] [address] [place] [address] [place] MCHC (RBC) [Mass/Vol] 32.3 30.5-36.0 g/dL Normal 04-27-20 [facility] (00 000) Comment: Order Comment: Specimen Type : BLOOD SPECIMEN Performed By: #### [id number] # ### [facility] CLIA [id number] [address] [place] [address] [place] MCV (RBC) [Entitic vol] 96.5 80.0-100.0 fL Normal 04-27 [facility] (00 000) Comment: Order Comment: Specimen Type : BLOOD SPECIMEN Performed By: #### [id number] # ### [facility] CLIA [id number] [address] [place] [address] [place] [facility] Platelet mean volume (Bld) 9.2 9.0-12.7 fL Normal [facility] [Entitic vol] Center ([id number]) Comment: Order Comment: Specimen Type : BLOOD SPECIMEN Performed By: #### [id number] # ### [facility] CLIA [id number] [address] [place] [address] [facility] Platelets (Bld) [#/Vol] 306 150-400 k/uL Normal 2019 [facility] (00 000) Comment: Order Comment: Specimen Type : BLOOD SPECIMEN Performed By: #### 08795-0 # ### [facility] CLIA [id number] [address] [place] [address] [place] RBC (Bld) [#/Vol] 4.56 3.90-5.20 m/uL Normal 04-27-2020 [facility] ([address]) Comment: Order Comment: Specimen Type : BLOOD SPECIMEN Performed By: #### 80673-3 # ### [facility] CLIA [id number] [address] [place] [address] [place] WBC (Bld) [#/Vol] 11.33 3.70-11.00 k/uL High 04-27-2020 [facility] (32066) Comment: Order Comment: Specimen Type : BLOOD SPECIMEN Performed By: #### 61548-4 # ### [facility] CLIA [id number] [address] [place] [id number] [place] cnpn on 2020-04-22 CNPN Telephone (AGINTMLW) Normal [address] [place] [address] [facility] JEIMY MORALES ([id number]) 1985 [facility] Time Provider Department (06329) 04/22/20 MICKI VIZCARRA AGINTMLW During your visit today, we recorded the following informati on about you: Tisha Enrique 04/22/2020 9:20 AM Signed No Show Documentation Jeimy Harrington Andrew no showed for an appointment on 04/21/20 [facility] Micki Vizcarra MD at 11:40 am. She was scheduled for 2 WK F/U BP CK AND BACK PAIN PER BQ SA B. I called and spoke with the patient regarding her missed eliel ointment. Jeimy stated the reason that she missed her appointment was because scheduling error/conflict . Resources discussed/offered to patient: to reschedule. No show determined to be fault of patient: Yes This is the patients second no show in the last 12 months. Patient was rescheduled for 04/27/20 at 2:20 pm. Letter mailed : Yes Is this the Third or Fourth No Show? No Tisha Cottrell April 22, 2020 9:17 AM Allergies As of Date: 04/22/2020 Noted Allergy Reaction BACTRIM (SULFAMETHOXAZOLE-TRIMETH*08/23/2016 4 - Hives LATEX 06/26/2017 2 - Rash SULFA (SULFONAMIDE ANTIBIOTICS) 08/23/2016 4 - Hives Date Reviewed: 04/08/2020 Reviewed by: Neeta Patino (Architecture Technician [employer]) KATY Gonzalez - Fully Assess ed Reason for Visit: Missed Appointment [1304] Cmt: Second missed appointment Prescriptions as of 04/22/2020 Sig: CITALOPRAM 20 MG TABLET TAKE 1 AND 1/2 (ONE AND ONE-NELY* HYDROXYZINE PAMOATE 25 MG CAP* TAKE 1 CAPSULE BY MOUTH TWICE * PREDNISONE 10 MG TABLET Take 4 tablets for 3 days, th* TIZANIDINE 4 MG TABLET Take 0.5 tablets by mouth at * TENS UNIT AND ELECTRODES COMB* 1 Package twice daily. ACETAMINOPHEN 325 MG CAPSULE Take by mouth. DASETTA (28) 0.5 MG(7)/* Take 1 tablet by mouth once d * DEXTROAMPHETAMINE-AMPHETAMINE* Take 30 mg by mouth once dina * Problem List As Of Date: 04/22/2020 (None) Encounter Status:Closed by TISHA COTTRELL on 04/22/20 cnco on 2020-04-22 CNCO Letter Text Normal 04-22-2020 [facility] ([id number]) [facility] (AGFAMPLE) Normal [address] [place] [address] [facility] JEIMY MORALES ([id number]) 1985 [facility] Date Time Provider Department (09677) 04/11/20 MICKI VIZCARRA During your visit today, we recorded the following informati on about you: Maricarmen Houston MA 04/11/2020 11:38 AM Signed ----- Message from Neeta Patino (Architecture Technician [facility]) KATY Gonzalez sent at 04/10/2020 5:32 PM EDT ----- XR only showed moderate arthritic changes. No evidence of fr actures or dislocations. Maricarmen Houston MA 04/11/2020 11:39 AM Signed Patient notified and voiced understanding. Maricarmen Houston MA Allergies As of Date: 04/11/2020 Noted Allergy Reaction BACTRIM (SULFAMETHOXAZOLE-TRIMETH*08/23/2016 4 - Hives LATEX 06/26/2017 2 - Rash SULFA (SULFONAMIDE ANTIBIOTICS) 08/23/2016 4 - Hives Date Reviewed: 04/08/2020 Reviewed by: Neeta Patino (Architecture [employer]ician [employer]) KATY Gonzalez - Fully Assess ed Reason for Visit: Results [95] Prescriptions as of 04/11/2020 Sig: CITALOPRAM 20 MG TABLET TAKE 1 AND 1/2 (ONE AND ONE-NELY* HYDROXYZINE PAMOATE 25 MG CAP* TAKE 1 CAPSULE BY MOUTH TWICE * PREDNISONE 10 MG TABLET Take 4 tablets for 3 days, th* TIZANIDINE 4 MG TABLET Take 0.5 tablets by mouth at * FLUOXETINE 20 MG CAPSULE Take 20 mg by mouth once dina* NAPROXEN 500 MG TABLET Take 1 tablet by mouth twice * Patient not taking: Reported on 04/08/2020 BENZOCAINE 15 MG-MENTHOL 2.6 * Take 1 Lozenge by mouth every * Patient not taking: Reported on 04/08/2020 TENS UNIT AND ELECTRODES COMB* 1 Package twice daily. GABAPENTIN 300 MG CAPSULE Take 1 capsule by mouth three* OMEPRAZOLE 20 MG CAPSULE,ROXANN* Take 1 capsule by mouth once * Patient not taking: Reported on 04/08/2020 ACETAMINOPHEN 325 MG CAPSULE Take by mouth. DASETTA (28) 0.5 MG(7)/* Take 1 tablet by mouth once d * DEXTROAMPHETAMINE-AMPHETAMINE* Take 30 mg by mouth once dina * Problem List As Of Date: 04/11/2020 (None) Encounter Status:Closed by MARICARMEN HOUSTON MA on 04/11/20 xr lumbar 3v ap/lat/l5-s1 on 2020-04-08 XR LUMBAR 3V Final Report Normal 04-08-2020 [facility] on General AP/LAT/L5-S1 DATE OF EXAM: Apr 08 2020 [facility] - XR LUMBAR 3V AP/LAT/L5-S1 / (47040) PROCEDURE REASON: Lumbar radiculopathy Physician Interpretation XR LUMBAR 3V AP/LAT/L5-S1 PROVIDED HISTORY: Lumbar radiculopathy COMPARISON: 11/09/2019 TECHNIQUE: AP, lateral, and coned-down sacral views of the l umbosacral spine. Counting reference: Lumbosacral junction. For the pur poses of this report, L4-5 is considered the level of the iliac crest and assume there are 5 lumbar-type vertebrae. Anatomic variant: None. RESULT: Moderate disc space narrowing at L5-S1. Bony mineral ization appears within normal limits. Osseous alignment appears inta ct. Moderate facet degenerative changes of L4-5 and L5-S1. IMPRESSION: Lower lumbar degenerative changes. No acute frac tures seen Lens Block Gauger: SHANA Transcribe Date/Time: Apr 08 2020 5:07P Dictated by : TAMMY QUESADA MD This examination was interpreted and the report reviewed and electronically signed by: TAMMY QUESADA MD on Apr 08 2020 5:09PM EST progress on 2020-03 PROGRESS HNO ID: [id number] Normal 04-08-2020 [facility] Author: Neeta Patino (Architecture Technician [employer] Teacher) KATY Gonzalez [place] ([id number]) Service: ? Author Type: Nurse Practitioner Type: Progress Notes Filed: 04/11/2020 4:57 PM Note Text: CHIEF COMPLAINT: Jeimy Morales is a 34 year old female, patient of Dr. Julio armando, who presents for ER F/U from [facility] for pain in her right buttock t hat is radiating down her right leg. She had been moving heavy furn iture prior to the pain beginning so she decided to seek care. They did not do any imaging but gave her a Toradol injection and prescriptions f or Naproxen and Flexeril. She states the medications haven't helped much at all. She reports she is continuing to have the pain and describes it as burning and a 7/10 at its worst. She is more concerned with the weakness in her right leg/foot she is having. States she is unable to stand up on the ball of her right foot without her ankle/foot wanting to give out. A lso has been walking with a limp due to the pain and weakness. Only previ ous back injury was back in October when she fell and injured her left lower back. The history is provided by the patient. No language interpre ter was used. Back Pain This is a new problem. The current episode started more than 1 week ago. The problem occurs daily. The problem has not changed since onset.The pain is associated with lifting heavy objects. The pain is presen t in the lumbar spine. The quality of the pain is described as shooti ng and burning. The pain radiates to the right thigh and right knee . The pain is at a severity of 7/10. The pain is moderate. The symptoms ar e aggravated by bending, twisting and certain positions. The pain is the same all the time. Stiffness is present in the morning. Associated sympto ms include numbness (right foot), leg pain and weakness (right foot). P ertinent negatives include no chest pain, no fever, no weight loss, n o headaches, no abdominal pain, no abdominal swelling, no bowel incontine nce, no perianal numbness, no bladder incontinence, no dysuria, no p elvic pain, no paresthesias, no paresis and no tingling. She has tried NSAI Ds and muscle relaxants for the symptoms. The treatment provided no relief . Risk factors include lack of exercise. PAST MEDICAL HISTORY Diagnosis Date - ADHD (attention deficit hyperactivity disorder) - Post depression - Psychiatric disorder PAST SURGICAL HISTORY Procedure Laterality Date - REMOVAL OF SKIN LESION 1992 susan removed no complication Social History Tobacco Use - Smoking status: Current Some Day Smoker Packs/day: 0.50 Years: 10.00 Pack years: 5.00 Types: Cigarettes - Smokeless tobacco: Never Used Substance Use Topics - Alcohol use: Yes Comment: socially - Drug use: No ALLERGIES Allergen Reactions - Bactrim [Sulfametho* Hives - Latex Rash - Sulfa (Sulfonamide * Hives Family History Problem Relation Age of Onset - Hypertension Mother - Asthma Mother - Hypertension Father - Cancer Father lung - other (heart disease) Father - other (blood clots) Father Current Outpatient Medications Medication Sig Dispense Refill - TENS unit and electrodes cmpk 1 Package twice daily. 1 Dev ice 0 - acetaminophen (TYLENOL) 325 mg cap Take by mouth. - DASETTA 7/7/7, 28, 0.5/0.75/1 mg- 35 mcg per tablet Take 1 tablet by mouth once daily. 3 - dextroamphetamine-amphetamine (ADDERALL XR) 30 mg 24 hr ca psule Take 30 mg by mouth once daily. - citalopram (CELEXA) 20 mg tablet TAKE 1 AND 1/2 (ONE AND ONE-HALF) TABLETS BY MOUTH ONCE DAILY - hydrOXYzine pamoate (VISTARIL) 25 mg capsule TAKE 1 CAPSUL E BY MOUTH TWICE DAILY NEEDED FOR ANXIETY or sleep - predniSONE (DELTASONE) 10 mg tablet Take 4 tablets for 3 d ays, then 2 tablets for 3 days, then 1 tablet for 3 days, then stop 24 t ablet 0 - tiZANidine (ZANAFLEX) 4 mg tablet Take 0.5 tablets by mout h at bedtime as needed. 7 tablet 0 No current facility-administered medications for this visit. Review of Systems Constitutional: Negative for activity change, appetite mcmahon e, chills, diaphoresis, fatigue, fever and weight loss. Respiratory: Negative for cough, chest tightness and wheezin g. Cardiovascular: Negative for chest pain, palpitations and le g swelling. Gastrointestinal: Negative for abdominal pain and bowel inco ntinence. Genitourinary: Negative for bladder incontinence, dysuria, f requency and pelvic pain. Musculoskeletal: Positive for back pain, gait problem and my algias (RLE). Negative for arthralgias, joint swelling, neck pain and neck stiffness. Skin: Negative for color change. Neurological: Positive for weakness (right foot) and numbnes s (right foot). Negative for dizziness, tingling, light-headedness, h eadaches and paresthesias. BP 150/90 Pulse 96 Temp 99 Ht 5' 6 (1.68m) Wt 144 l b 3.2 oz (65.4kg) SpO2 96% LMP 10/20/2018 BMI 23.29 kg/(m2). Physical Exam Constitutional: She is oriented to person, place, and time a nd well-developed, well-nourished, and in no distress. BP elevated HENT: Head: Normocephalic and atraumatic. Mouth/Throat: Uvula is midline, oropharynx is clear and mois t and mucous membranes are normal. Eyes: Pupils are equal, round, and reactive to light. Neck: Normal range of motion and full passive range of motio n without pain. Neck supple. Cardiovascular: Normal rate, regular rhythm and normal heart sounds. Pulmonary/Chest: Effort normal and breath sounds normal. Musculoskeletal: Lumbar back: She exhibits decreased range of motion, tendern ess (right paraspinal muscle tenderness) and pain. She exhibits no bony tenderness, no swelling, no edema and no deformity. Back: Comments: Negative straight leg test Neurological: She is alert and oriented to person, place, an d time. She has normal motor skills, normal strength and normal reflexes . She displays no weakness. Reflex Scores: Patellar reflexes are 2+ on the right side and 2+ on the lef t side. Skin: Skin is warm, dry and intact. No rash noted. Nursing note and vitals reviewed. ASSESSMENT/PLAN: 1. Lumbar radiculopathy - ICD9: 724.4, ICD10: M54.16 (primar y diagnosis) Mechanical low back pain. She had good strength and DTRs riky aterally. Suspect possible impingement/sciatica. - Prednisone burst- see orders - Muscle relaxant- see orders - Xrays- see orders - Patient given instructions use of medications as ordered, intermittent rest, improved posture, proper lifting techniques, intermitt ent use of heat and avoiding sleeping on a heating pad - Follow up in 2 weeks and with primary care provider or noemi ner if symptoms persist or worsen - Per chart review, it appears that she has seen Dr. Ivette perez [facility] for low back pain and has been on Meloxicam previo usly. Has used a TENS unit. She was to follow up in 3 months but did not (p ossibly due to COVID pandemic). - XR LUMBAR GENERAL 3V AP/LAT/L5-S1 - PREDNISONE 10 MG TABLET - TIZANIDINE 4 MG TABLET 2. Elevated blood pressure reading without diagnosis of hype rtension - ICD9: 796.2, ICD10: R03.0 - Patient had two elevated blood pressure readings at today' s visit. Per chart review, it appears she has had elevated readings in e past. She also hasn't had any lab work completed recently. Will obtain basic labs including CMP, TSH, CBC, and lipid panel. - Encouraged dietary sodium restriction/DASH diet - Recommended regular aerobic exercise. - Recommend home blood pressure monitoring, to bring results in on next visit - Recheck in 2 weeks, sooner if needed. - Goal of BP <130/80 - Patient counseled on smoking cessation. - COMP METABOLIC PANEL - CBC - TSH BLD 3. Screening for lipid disorders - ICD9: V77.91, ICD10: Z13. 220 - LIPID PANEL BASIC 4. Cigarette smoker - ICD9: 305.1, ICD10: F17.210 - Smokes 1/2 ppd - Cessation encouraged. - Physiologic and physical aspects of tobacco addiction as w ell as strategies for quitting were discussed. - Counseling was given focusing on the harmful effects of th is addiction especially given the patient's medical condition(s) which wi ll be worsened because of the chemicals in tobacco. - Counseling was given 3-4 minutes. - Declines medication or assistance at this time. New medication(s) prescribed today: Yes: Prednisone and John flex. Discussed new medication dosage, usage, goals of therapy, an d side effects. Patient has been apprised of any potential drug int eractions to be aware of. Patient expresses understanding. Do not drink a lcohol while taking this medication. Copy of written care plan, clinical summary, treatment plan, new medications, goals, and self management requirements were gi jennifer to patient. Neeta Gonzalez APRN.KATY espinoza on 2020-04-08 CNOV Office Visit (AGFAMPLE) Normal 2019 [facility] JEIMY MORALES ([id number]) 1985 [facility] Date Time Provider Department ([id number]) 04/08/20 3:20 PM NEETA GONZALEZ (CARGO TRIMMER, RIBBON CLEANER)AGFAMPYFN During your visit today, we recorded the following informati on about you: Temperature Pulse Blood pressure Weight 99 degrees 96/minute 150/90 65.4 kg Height 1.676 m Michelle Chilel MA 04/08/2020 3:47 PM Signed Pt here for ER f/u from [facility]. States she was havi ng pain in her R buttocks and radiating down her leg. States it felt like a burning spasm. They gave naproxen, flexeril and a shot in the ER. Sta jules she feels like she has lost strength in that leg. Neeta Gonzalez APRN.KATY RIBBON CLEANER 04/11/2020 4:57 PM Signed CHIEF COMPLAINT: Jeimylio Morales is a 34 year old female , patient of Dr. Vizcarra, who presents for ER F/U from [facility] for pain in her right buttock that is radiating down her right leg. She had been moving heavy furniture p rior to the pain beginning so she decided to seek care. They did not do any imaging but gave her a Toradol injection and prescriptions for Naproxen and Flexeril. She s tates the medications haven't helped much at all. She repo rts she is continuing to have the pain and describes it as burning and a 7/10 at its worst . She is more concerned with the weakness in her right leg/foot she is having. States she is unable to stand up on the ba ll of her right foot without her ankle/foot wanting to give out. Also has been walking with a limp due to the pain and weakness. Only previous back injury was back in [place] when she fell and injured her left lower back. The history is provided by the patient. No language interpre ter was used. Back Pain This is a new problem. The current episode started mor e than 1 week ago. The problem occurs daily. The problem has not changed since onse t.The pain is associated with lifting heav y objects. The pain is present in the lumbar spine. The quality of the pain is d escribed as shooting and burning. The pain radiates to the right thigh and right knee. The p ain is at a severity of 7/10. The pain is moderate. The symptoms are aggravated by bending, twistin g and certain positions. The pain is the same all the time. Stiffness is p resent in the morning. Associated symptoms include numbness (right foot), leg pain and weakness (right foot). Pertinent negativ es include no chest pain, no fever, no weight loss, no headaches, no abdominal pain, no abdominal swelling, no bowel incontinence, no perianal numbness, no bladder incontinenc e, no dysuria, no pelvic pain, no paresthesias, no paresis and no tingling. She has tried NSAIDs and muscle relaxants for the symptoms. The treat ment provided no relief. Risk factors include lack of exercise. PAST MEDICAL HISTORY Diagnosis Date - ADHD (attention deficit hyperactivity disorder) - Post depression - Psychiatric disorder PAST SURGICAL HISTORY Procedure Laterality Date - REMOVAL OF SKIN LESION 1992 susan removed no complication Social History Tobacco Use - Smoking status: Current Some Day Smoker Packs/day: 0.50 Years: 10.00 Pack years: 5.00 Types: Cigarettes - Smokeless tobacco: Never Used Substance Use Topics - Alcohol use: Yes Comment: socially - Drug use: No ALLERGIES Allergen Reactions - Bactrim [Sulfametho* Hives - Latex Rash - Sulfa (Sulfonamide * Hives Family History Problem Relation Age of Onset - Hypertension Mother - Asthma Mother - Hypertension Father - Cancer Father lung - other (heart disease) Father - other (blood clots) Father Current Outpatient Medications Medication Sig Dispense Refill - TENS unit and electrodes cmpk 1 Package twice daily. 1 Dev ice 0 - acetaminophen (TYLENOL) 325 mg cap Take by mouth. - DASETTA 7/7/7, 28, 0.5/0.75/1 mg- 35 mcg per tablet Take 1 tablet by mouth once daily. 3 - dextroamphetamine-amphetam ine (ADDERALL XR) 30 mg 24 hr capsule Take 30 mg by mouth once daily. - citalopram (CELEXA) 20 mg tablet TAKE 1 AND 1/2 (ONE AND ONE-HALF) TABLETS BY MOUTH ONCE DAILY - hydrOXYzine pamoate (VISTARIL) 25 mg capsule TAKE 1 CAPSULE BY MOUTH TWICE DAILY NEEDED FOR ANXIETY or sleep - predniSONE (DELTASONE) 10 mg tablet Take 4 tablets for 3 days, then 2 tablets for 3 days, then 1 tablet for 3 days, then stop 24 tablet 0 - tiZANidine (ZANAFLEX) 4 mg tablet Take 0.5 tablets by [facility] at bedtime as needed. 7 tablet 0 No current facility-administered medications for this visit. Review of Systems Constitutional: Negative for activity change, appetite mcmahon e, chills, diaphoresis, fatigue, fever and weight loss. Respiratory: Negative for cough, chest tightness and wheezin g. Cardiovascular: Negative for chest pain, palpitations and le g swelling. Gastrointestinal: Negative for abdominal pain and bowel inco ntinence. Genitourinary: Negative for bladder incontinence, dysuria, frequency and pelvic pain. Musculoskeletal: Positive for back pain, gait problem and my algias (RLE). Negative for arthralgias, joint swelling, neck pain and neck stiffness. Skin: Negative for color change. Neurological: Positive for weakness (right foot) and numbn ess (right foot). Negative for dizziness, ting ling, light-headedness, headaches and paresthesias. BP 150/90 Pulse 96 Temp 99 Ht 5' 6 (1.68m) Wt 144 lb 3.2 oz (65.4kg) SpO2 96% LMP 10/20/2018 BMI 23.29 kg/(m2). Physical Exam Constitutional: She is oriented to perso n, place, and time and well-developed, well-nourished, and in no distress. BP elevated HENT: Head: Normocephalic and atraumatic. Mouth/Throat: Uvula is midline, oropharynx is clear and mois t and mucous membranes are normal. Eyes: Pupils are equal, round, and reactive to light. Neck: Normal range of motion and full passive range of mot ion without pain. Neck supple. Cardiovascular: Normal rate, regular rhythm and normal heart sounds. Pulmonary/Chest: Effort normal and breath sounds normal. Musculoskeletal: Lumbar back: She exhibits decreased range of motion, tendern ess (right paraspinal muscle tenderness) and pain. She exhibits no obdulio ny tenderness, no swelling, no edema and no deformity. Back: Comments: Negative straight leg test Neurological: She is alert and oriented to person, place, and time. She has normal motor skills, normal strength and normal reflexes. Sh e displays no weakness. Reflex Scores: Patellar reflexes are 2+ on the right side and 2+ on the lef t side. Skin: Skin is warm, dry and intact. No rash noted. Nursing note and vitals reviewed. ASSESSMENT/PLAN: 1. Lumbar radiculopathy - ICD9: 724.4, ICD10: M54.16 (primar y diagnosis) Mechanical low back pain. She had good strength and DTRs bilaterally. Suspect possible impingement/sciatica. - Prednisone burst- see orders - Muscle relaxant- see orders - Xrays- see orders - Patient given instructions use of medi cations as ordered, intermittent rest, improved posture, proper lifting techniques, intermittent us e of heat and avoiding sleeping on a heating pad - Follow up in 2 weeks and with primary care provider or s ooner if symptoms persist or worsen - Per chart review, it appea rs that she has seen Dr. Steele with [facility] for low back pain and has been on Meloxicam prev iously. Has used a TENS unit. She was to follow up in 3 months but did not (possibly due to COVID pandemic). - XR LUMBAR GENERAL 3V AP/LAT/L5-S1 - PREDNISONE 10 MG TABLET - TIZANIDINE 4 MG TABLET 2. Elevated blood pressure reading without diagnosis o f hypertension - ICD9: 796.2, ICD10: R03.0 - Patient had two elevated blood pressur e readings at today's visit. Per chart review, it appears she has had elevated readings in the past. She also hasn't had any lab work completed r ecently. Will obtain basic labs including CMP, TSH, CBC, and lipid panel. - Encouraged dietary sodium restriction/DASH diet - Recommended regular aerobic exercise. - Recommend home blood pressure monitoring, to b ring results in on next visit - Recheck in 2 weeks, sooner if needed. - Goal of BP <130/80 - Patient counseled on smoking cessation. - COMP METABOLIC PANEL - CBC - TSH BLD 3. Screening for lipid disorders - ICD9: V77.91, ICD10: Z13. 220 - LIPID PANEL BASIC 4. Cigarette smoker - ICD9: 305.1, ICD10: F17.210 - Smokes 1/2 ppd - Cessation encouraged. - Physiologic and physical aspects of tobacco ad diction as well as strategies for quitting were discussed. - Counseling was given focusing on the harmful effects of th is addiction especially given the patient's medical condition(s) which wi ll be worsened because of the chemicals in tobacco. - Counseling was given 3-4 minutes. - Declines medication or assistance at this time. New medication(s) prescribed today: Yes: Prednisone and Za naflex. Discussed new medication dosage, usage, goals of therapy, and side effects. Patient has been apprised of any potential drug interactions to be aware of. Patient expresses understanding. Do not drink alcohol while taking this medication. Copy of written care plan, clinical summary, manav atment plan, new medications, goals, and self management requirements were given to john Gonzalez APRN.KATY Gonzalez APRN.KATY ZAMBRANO 04/11/2020 4:57 PM Addendum Low Back Pain Low back pain is pain and stiffness in the small of the ba ck. With low back pain, pain may also occur in the buttocks or legs. Sim ple exercises and good posture can help most cases of low back pain. In a few cases , medications, physical therapy or surgery may be needed. The spine is made up of ring-like bones called vertebrae. The vertebrae are stacked on top of each other and form a strong c olumn that keeps the head and body standing up. Between each vertebra is a jel ly-like disk that has a tough outside edge. These disks are like cushi ons between the vertebrae. Muscles and tissues hold vertebrae in the right place. The lower back co nsists of five vertebrae. These vertebrae make up the inward curve of the l ower back. What causes low back pain? The most common cause of low back pain is overstretched or injured muscles that support the lower back. Muscles and connective tissues can become hurt from lifting or carrying heavy objects incorrectly. Muscles in the back can also become weak from a lack of exercise. Exe rcises to make the muscles in the back and abdomen strong can lessen pain. Low back pain can also b e caused by: Bad posture Standing or sitting in the same place for a long time Slipped disk; a slipped disk is when a disk between vertebrae bulges past the bones and presses against a nerve. Being very overweight Osteoporosis (thinning of bone) Osteoarthritis, which is the break down of tissues or bones of the joint Fibromyalgia, which is an illness that c auses achy, tender muscles; the person with fibromyalgia may also sleep poorly, have he adaches, and often feel tired Serious illnesses such as cancer, infection, or another illness can cause low back pain, but this is rare How is low back pain treated? Many times, low back pain can be helped by exercise an d keeping good posture while sitting, standing, and sleeping. Y ou can also learn ways to protect your back when bending, lifting, and exercising. People who are overweight might lessen low back pain by losing weight. What can I do if I have low back pain? 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 While working in the kitchen, open the cabinet under the s ink and rest your foot on the inside of the cabinet. Change feet every 5 to 15 minutes. Keep good posture by standing with your head up, shoulders s traight, chest forward, weight balanced evenly on both feet, and hips tucke d in. Sitting Make sure your chair has good lower back support. The back of the chair should be curved to give support where the small of the back meets the chair. Keep your knees a little higher than your hips b y using a foot rest or stool. Don't twist at the waist while sitting. Instead, turn your w hole body. Sleeping Sleep on your side with your knees bent. You can also put a pillow between your knees. Try not to sleep on your stomach. If you sleep on your back, put pillows under your knees and a small pillow under the small of your back. Lifting objects Before you lift a heavy object, get a firm footing. Be nd your knees to lower yourself to the level of the object, josselyn ping your lower back straight. Tighten your stomach muscles and lif t the object using your leg muscles. Don't jerk the object up to your body. Never bend from the waist with you r knees straight. If you are lifting an object from a table, slide it to the edge of the table so that you can hold it close to your body. Bend your knees so that you are close to the object. Use your legs to lift the object and come to a standing position. Avoid lifting heavy objects above waist level. Hold packages close to your body with your arms bent. References National [place] for Neu[employer] Disorders and Stro ke. Low Back Pain Fact Sheet. Accessed 11/11/2012 [employer]. Low Back Pain. A ccessed 11/11/2012 [employer]. Back Pain Facts AND Sta tistics. Accessed 11/11/2012 Tip SD, Jaja S, Pancesar RS. Back pain made simple: an approach based on principles and evidence. [facility] J Med. 2009;76:393?399 ? Copyright 0326-6316 [facility]. All r ights reserved This information is provided by the [facility] and i s not intended to replace the medical advice of your doctor or health care pro vider. Please consult your health care provider for advice about a specifi c medical condition. For additional health information, please conta ct the Center for Consumer Health Information at the [facility] [phone] CESSATION Stopping smoking is the most important thing you can do to protect your current and future health, as well as that of your famil y. It is the most potent risk factor for the future develo pment of coronary artery disease and heart attacks. Smoking is both an addiction and a learned behavior. T he nicotine withdrawal takes anywhere from 2-4 weeks and results in symptoms such as irritability, fatigue, insomnia, coughing, dizziness, poor concentration, hunger and cigarette cravings. After the nicotine withdrawa l period, the learned linkage between certain acts or situations and cigarette use remain. Strategies to deal with these must be deve loped along with new behaviors to ensure successful smoking cessation. STRATEGIES TOWARD SMOKING CESSATION - Make a list of the reasons why you want to quit, plus the benefits to be gained, and compare them to the reasons why you should issa nue to smoke. - Pick a specific quit date. - If you are interested in using nicotine patches or gum t o assist with the nicotine withdrawal, let the staff know. - Inform friends, family, and co-workers that you are quitting and when your quit date is. Ask for their understanding and support. - Prepare your environment by removing a ll cigarettes prior to your quit date. - Prior to your quit date, avoid smoking in places where y ou spend a lot of time (such as the house, work, car). - From previous quit attempts, identify what helped you to s top smoking. - From previous quit attempts, identify what triggered rel apse. How can you avoid that again? - What things (situations, emotions) do you anticipate will be most challenging, especially in the first few weeks, to your quit ting effort? - What can you do to address these challenges? - Avoid (or limit) alcohol consumption during the quitting p rocess. - If your spouse or close coworker robbin ntly smoke, consider quitting together or at the very least, develop specific plans to maintain you r cigarette abstinence while in the home or at work. - Take each day, each hour, each craving, one at a time. Every step or action you take toward smoking cessation is a success. The only trino lure is the failure to try. - The health of you and your family, is worth the effort. STOP SMOKING CHECK LIST Preparing to Quit: ___ Make a personal pact with yourself to quit. ___ Pick a date for quitting completely. (My date to quit is ____.) ___ Write down on a card the three most importan t reasons for quitting. Carry the card with you from now on. Look at it several times a da y. ___ Prior to quitting, nedra gayle smoking completely in 2 or 3 of your high risk situations. ___ Reduce consumption to one pack per day or less. ___ Change to a less desirable brand of cigarettes. ___ Discard your test manager. Use matches. Carry your cigarett es in a different place. ___ Spend a little time each day picturing in your mind stre ssful events occurring in the future and you not smoking. Actual Quitting: The First Two Weeks ___ Get rid of all cigarettes. Put away all smoking relate d objects such as ashtrays. Ask the people you live with not to smoke in your presence for the first two weeks. ___ Spend as much time as possible with non-smoking people. ___ Keep busy, especially on evenings and weekends. ___ Avoid high risk situations (large parties, bars, etc.). ___ Spend lots of time in places that prohibit or discoura ge smoking (e.g., theaters, libraries.) ___ Drink plenty of fluids. ___ Don't substitute food or sugar based products for cigarettes. Use approved substitutions. (... ice water, high bulk/low calorie foods, sugarless gum, mouthwash, brushing teeth.) ___ Begin or increase regular exercise program. ___ When experiencing withdrawal effects: 1. Remind yourself why you are quitting (from your card). 2. Remind yourself that whatever discomfort you are experien cing is only a tiny fraction of the probable discomfort ass ociated with continued smoking. 3. Practice deep breathing or other relaxation techniques - tapes. ___ Remind yourself that you can free yo urself from this unhealthy, expensive, messy habit and become a non-smoker. Maintenance of Quitting: After two weeks ___ Remind yourself that the desire to smoke is linked to a great many situations, people and emotional stress. ___ When you do have a desire to smoke, remember that it onl y lasts a few seconds: distract yourself and leave the situation if necess lucho. ___ After each desire to smoke has passed, pat y ourself on the back, you have just made progress in breaking the habit forever. ___ Save the money on wasted on cigarettes in a special fund and buy yourself something nice. Maintenance of Quitting: After Two Months ___ Be particularly vigilant when unusual life events occur. (.. weddings, holidays, vacations.) ___ Be particularly vigilant when stressful life events occu r (e.g., relationship problems, financial or work problems.) ___ Remind yourself regularly that not smoking is completely within your personal control. ___ Never lull yourself into thinking yo u are out of danger and you can safely have a cigarette or two. -- you cannot!!!!! ___ If, by chance, you do sl ip and have one or more cigarettes, do not conclude that all is lost. Return to complete abstinence imme diately and learn from your experience. ___ If you have gained signi ficant weight since quitting, now is the time to do something about it. ___ Each time you see a cigarettes advertisement, jarrett nd yourself of why you quit. Also remember that a [employer] spends bi llions of dollars each year trying to get people like yourself re-hooked. index#4371 Referring Provider: SELF [200] Allergies As of Date: 04/08/2020 Noted Allergy Reaction BACTRIM (SULFAMETHOXAZOLE-TRIMETH*08/23/2016 4 - Hives LATEX 06/26/2017 2 - Rash SULFA (SULFONAMIDE ANTIBIOTICS) 08/23/2016 4 - Hives Date Reviewed: 04/08/2020 Reviewed by: Neeta Patino ([employer]) KATY Gonzalez - Fully Assess ed Reason for Visit: ER F/U [41] Cmt: Leg pain/spasms Reason For Visit History Recorded Primary Visit Diagnosis:Lumbar radiculopathy [M54.16] Other Visit Diagnoses:Elevated blood pressure reading withou t diagnosis of hypertension [R03.0] Screening for lipid disorders [Z13.220] Cigarette smoker [F17.210] Order(s):XR LUMBAR GENERAL 3 V AP/LAT/L5-S1 [[id number]] Order #: [id number] FUTURE predniSONE (DELTASONE) 10 mg tabletTake 4 tablets for 3 days , then 2 tablets for 3 days, then 1 tablet for 3 days, then stopDisp: 24 tabletRfl: 0 COMP METABOLIC PANEL [SQCMP] Order #: [id number] FUTURE CBC [SQCBC] Order #: [id number] FUTURE TSH BLD [SQTSH] Order #: [id number] FUTURE LIPID PANEL BASIC [SQLIPB] Order #: [id number] FUTURE tiZANidine (ZANAFLEX) 4 mg tabletTake 0.5 tablets by mouth a t bedtime as needed.Disp: 7 tabletRfl: 0 Prescriptions as of 04/08/2020 Sig: TENS UNIT AND ELECTRODES COMB* 1 Package twice daily. ACETAMINOPHEN 325 MG CAPSULE Take by mouth. DASETTA (28) 0.5 MG(7)/* Take 1 tablet by mouth once d * DEXTROAMPHETAMINE-AMPHETAMINE* Take 30 mg by mouth once dina * CITALOPRAM 20 MG TABLET TAKE 1 AND 1/2 (ONE AND ONE-NELY* HYDROXYZINE PAMOATE 25 MG CAP* TAKE 1 CAPSULE BY MOUTH TWICE * PREDNISONE 10 MG TABLET Take 4 tablets for 3 days, th* TIZANIDINE 4 MG TABLET Take 0.5 tablets by mouth at * Problem List As Of Date: 04/08/2020 (None) Other instructions from your clinician: Low Back Pain Low back pain is pain and stiffness in the small of the back . With low back pain, pain may also occur in the buttocks or legs. Simp le exercises and good posture can help most cases of low back pain. In a few cases, medications, physical therapy or surgery may be needed. The spine is made up of ring-like bones called vertebrae. Th e vertebrae are stacked on top of each other and form a strong column th at keeps the head and body standing up. Between each vertebra is a jelly- like disk that has a tough outside edge. These disks are like cushions betw een the vertebrae. Muscles and tissues hold vertebrae in the right p lace. The lower back consists of five vertebrae. These vertebrae make up the inward curve of the lower back. What causes low back pain? The most common cause of low back pain is overstretched or i njured muscles that support the lower back. Muscles and connective tissues can become hurt from lifting or carrying heavy objects incorrectly. Mus cles in the back can also become weak from a lack of exercise. Exercises to make the muscles in the back and abdomen strong can lessen pain. Low back pain can also be caused by: Bad posture Standing or sitting in the same place for a long time Slipped disk; a slipped disk is when a disk between vert ebrae bulges past the bones and presses against a nerve. Being very overweight Osteoporosis (thinning of bone) Osteoarthritis, which is the break down of tissues or bones of the joint Fibromyalgia, which is an illness that causes achy, tender m uscles; the person with fibromyalgia may also sleep poorly, have headach es, and often feel tired Serious illnesses such as cancer, infection, or another illn ess can cause low back pain, but this is rare How is low back pain treated? Many times, low back pain can be helped by exercise and keep ing good posture while sitting, standing, and sleeping. You can also learn ways to protect your back when bending, lifting, and exercising. Peo ple who are overweight might lessen low back pain by losing weight. What can I do if I have low back pain? Standing If you associate financial analyst the same place for a long time, rest one jamee t on a low stool. While working in the kitchen, open the cabinet under the sink and rest your foot on the inside of the cabinet. Change feet jagdeep ry 5 to 15 minutes. Keep good posture by standing with your head up, shoulders s traight, chest forward, weight balanced evenly on both feet, and hips tucke d in. Sitting Make sure your chair has good lower back support. The back o f the chair should be curved to give support where the small of the back meets the chair. Keep your knees a little higher than your hips by using a fo ot rest or stool. Don't twist at the waist while sitting. Instead, turn your w hole body. Sleeping Sleep on your side with your knees bent. You can also put a pillow between your knees. Try not to sleep on your stomach. If you sleep on your back, put pillows under your knees and a small pillow under the small of your back. Lifting objects Before you lift a heavy object, get a firm footing. Bend you r knees to lower yourself to the level of the object, keeping your lowe r back straight. Tighten your stomach muscles and lift the object u sing your leg muscles. Don't jerk the object up to your body. Never bend f rom the waist with your knees straight. If you are lifting an object from a table, slide it to the e dge of the table so that you can hold it close to your body. Bend your knees so that you are close to the object. Use your legs to lift the objec t and come to a standing position. Avoid lifting heavy objects above waist level. Hold packages close to your body with your arms bent. References National [place] for Neu[employer] Disorders and Stroke. Lo w Back Pain Fact Sheet. Accessed 11/11/2012 [employer]. Low Back Pain. Acc essed 11/11/2012 [employer]. Back Pain Facts AND Sta tistics. Accessed 11/11/2012 Tip SD, Jaja S, Ana RS. Back pain made simple: an ap proach based on principles and evidence. [employer] [facility] J Med. 2009;76:393?39 9 ? Copyright 4910-4326 [facility]. All r ights reserved This information is provided by the [facility] and is not intended to replace the medical advice of your doctor or health care provider. Please consult your health care provider for advice about a specific medical condition. For additional health information, please contact the Center for Consumer Health Information at the [place] [phone] CESSATION Stopping smoking is the most important thing you can do to p rotect your current and future health, as well as that of your family. I t is the most potent risk factor for the future development of coronary ar malena disease and heart attacks. Smoking is both an addiction and a learned behavior. The wilda otine withdrawal takes anywhere from 2-4 weeks and results in symp toms such as irritability, fatigue, insomnia, coughing, dizziness, poor c oncentration, hunger and cigarette cravings. After the nicotine withdrawal period, the learned linkage between certain acts or situations and cigar ette use remain. Strategies to deal with these must be developed farzaneh g with new behaviors to ensure successful smoking cessation. STRATEGIES TOWARD SMOKING CESSATION - Make a list of the reasons why you want to quit, plus the benefits to be gained, and compare them to the reasons why you should issa nue to smoke. - Pick a specific quit date. - If you are interested in using nicotine patches or gum to assist with the nicotine withdrawal, let the staff know. - Inform friends, family, and co-workers that you are quitti ng and when your quit date is. Ask for their understanding and support. - Prepare your environment by removing all cigarettes prior to your quit date. - Prior to your quit date, avoid smoking in places where you spend a lot of time (such as the house, work, car). - From previous quit attempts, identify what helped you to s top smoking. - From previous quit attempts, identify what triggered relap se. How can you avoid that again? - What things (situations, emotions) do you anticipate will be most challenging, especially in the first few weeks, to your quit ting effort? - What can you do to address these challenges? - Avoid (or limit) alcohol consumption during the quitting p rocess. - If your spouse or close coworker currently smoke, consider quitting together or at the very least, develop specific plans to mary lou ntain your cigarette abstinence while in the home or at work. - Take each day, each hour, each craving, one at a time. Jagdeep ry step or action you take toward smoking cessation is a success. The o nly failure is the failure to try. - The health of you and your family, is worth the effort. STOP SMOKING CHECK LIST Preparing to Quit: ___ Make a personal pact with yourself to quit. ___ Pick a date for quitting completely. (My date to quit is ____.) ___ Write down on a card the three most important reasons fo r quitting. Carry the card with you from now on. Look at it several time s a day. ___ Prior to quitting, eliminate smoking completely in 2 or 3 of your high risk situations. ___ Reduce consumption to one pack per day or less. ___ Change to a less desirable brand of cigarettes. ___ Discard your test manager. Use matches. Carry your cigarettes in a different place. ___ Spend a little time each day picturing in your mind stre ssful events occurring in the future and you not smoking. Actual Quitting: The First Two Weeks ___ Get rid of all cigarettes. Put away all smoking related objects such as ashtrays. Ask the people you live with not to smoke in yo ur presence for the first two weeks. ___ Spend as much time as possible with non-smoking people. ___ Keep busy, especially on evenings and weekends. ___ Avoid high risk situations (large parties, bars, etc.). ___ Spend lots of time in places that prohibit or discourage smoking (e.g., theaters, libraries.) ___ Drink plenty of fluids. ___ Don't substitute food or sugar based products for cigare ttes. Use approved substitutions. (... ice water, high bulk/low calori e foods, sugarless gum, mouthwash, brushing teeth.) ___ Begin or increase regular exercise program. ___ When experiencing withdrawal effects: 1. Remind yourself why you are quitting (from your card). 2. Remind yourself that whatever discomfort you are experiencing is only a tiny fraction of the probable discomf ort associated with continued smoking. 3. Practice deep breathing or other relaxation techniques - tapes. ___ Remind yourself that you can free yourself from this unh ealthy, expensive, messy habit and become a non-smoker. Maintenance of Quitting: After two weeks ___ Remind yourself that the desire to smoke is linked to a great many situations, people and emotional stress. ___ When you do have a desire to smoke, remember that it onl y lasts a few seconds: distract yourself and leave the situation if necess lucho. ___ After each desire to smoke has passed, pat yourself on t he back, you have just made progress in breaking the habit forever. ___ Save the money on wasted on cigarettes in a special fun d and buy yourself something nice. Maintenance of Quitting: After Two Months ___ Be particularly vigilant when unusual life events occur. (.. weddings, holidays, vacations.) ___ Be particularly vigilant when stressful life events occu r (e.g., relationship problems, financial or work problems.) ___ Remind yourself regularly that not smoking is completely within your personal control. ___ Never lull yourself into thinking you are out of danger and you can safely have a cigarette or two. -- you cannot!!!!! ___ If, by chance, you do slip and have one or more cigarett es, do not conclude that all is lost. Return to complete abstinence i mmediately and learn from your experience. ___ If you have gained significant weight since quitting, no w is the time to do something about it. ___ Each time you see a cigarettes advertisement, remind you rself of why you quit. Also remember that a [employer] spends bill ions of dollars each year trying to get people like yourself kai zhao. index#4371 Visit Notes: >> Michelle (Leonid) Getachew Rodriguez Apr 08, 2020 3:40 PM Status: Si gned Pt here for ER f/u from [facility]. States she was having pain in h er R buttocks and radiating down her leg. States it felt like a burning spasm. They gave naproxen, flexeril and a shot in the ER. States sh e feels like she has lost strength in that leg. Prescriptions ordered this encounter Disp Refills Start End PREDNISONE 10 MG TABLET 24 t* 0 04/08/2020 Sig: Take 4 tablets for 3 days, then 2 tablets for 3 d ays, then 1 tablet for 3 days, then stop TIZANIDINE 4 MG TABLET 7 ta* 0 04/08/2020 Route: ORAL Sig: Take 0.5 tablets by mouth at bedtime as needed. Medications Discontinued During This Encounter Prescriptions - cyclobenzaprine (FLEXERIL) 10 mg tablet (Discontinued) Reported on 04/08/2020 - naproxen (NAPROSYN) 500 mg tablet (Discontinued) Reported on 04/08/2020 - FLUoxetine (PROZAC) 20 mg capsule (Discontinued) Take 20 mg by mouth once daily. - benzocaine-menthol (CEPACOL SORE THROAT, LETA-MEN,) 15-2.6 mg lozg lozenge (Discontinued) Reported on 04/08/2020 - gabapentin (NEURONTIN) 300 mg capsule (Discontinued) Take 1 capsule by mouth three times daily for 30 days. - omeprazole (PRILOSEC) 20 mg capsule (Discontinued) Reported on 04/08/2020 Disposition: Return in about 2 weeks (around 04/22/2020) for BP check, back pain with Dr. Vizcarra. Follow-up and Disposition History Recorded Encounter Status:Closed by NEETA ROLLE on 04/11/20 No panel information on 2020-04-08 [facility] ([id number]) progress on 2020-03 PROGRESS HNO ID: [id number] Normal 03-24-2020 [facility] Author: Chai Fraire) Lynn Hong ([id number]) Service: ? Author Type: Surgical Oncologist Type: Progress Notes Filed: 03/24/2020 4:31 PM Note Text: ED Follow Up: Patient discharged from [facility] ED on 03/22. 1. How are you feeling since your ED visit? Left VM Have your symptoms improved or resolved? Left VM 2. Were you prescribed any medications while in the ED or ad vised to stop any medication? Left VM - If yes, were you able to fill your prescriptions? Left VM -if stopped medication, what was the medication? Left VM 3. Were you advised to schedule a follow up appointment with your provider? Left VM - If no, Do you feel like you need an appointment scheduled? Left VM - If yes, Do you need this scheduled now or has this already been scheduled? Left VM 4. Were you able to contact the office or project consultant provider kyle covarrubias to your ED visit? Left VM 5. Is there anything else I can do for you today? Left VM cnptoutreach on CNPTOUTREACH Patient Outreach (AGINTMLW) Normal 03-24-2020 [place] [facility] JEIMY MORALES ([id number]) 1985 [facility] Date Time Provider Department ([id number]) 03/24/20 CHAI RAMIREZ) AGINTMLW During your visit today, we recorded the following informati on about you: Chai Ramirez CMA 03/24/2020 4:31 PM Signed ED Follow Up: Patient discharged from [facility] ED on 03/22. 1. How are you feeling since your ED visit? Left VM Have your symptoms improved or resolved? Left VM 2. Were you prescribed any medications while in the ED or advised to stop any medication? Left VM - If yes, were you able to fill your prescriptions? Left VM -if stopped medication, what was the medication? Left VM 3. Were you advised to schedule a follow up appointment wi th your provider? Left VM - If no, Do you feel like you need an appointment scheduled? Left VM - If yes, Do you need this scheduled now or has this a lready been scheduled? Left VM 4. Were you able to contact the office or project consultant provider prior to your ED visit? Left VM 5. Is there anything else I can do for you today? Left VM Allergies As of Date: 03/24/2020 Noted Allergy Reaction BACTRIM (SULFAMETHOXAZOLE-TRIMETH*08/23/2016 4 - Hives LATEX 06/26/2017 2 - Rash SULFA (SULFONAMIDE ANTIBIOTICS) 08/23/2016 4 - Hives Date Reviewed: 11/09/2019 Reviewed by: Eusebia Patino (Rn) LINDA Coyne - Fully Assessed Reason for Visit: ED Follow Up [973] Prescriptions as of 03/24/2020 Sig: FLUOXETINE 20 MG CAPSULE Take 20 mg by mouth once dina* NAPROXEN 500 MG TABLET Take 1 tablet by mouth twice * CYCLOBENZAPRINE 10 MG TABLET Take 1 tablet by mouth every * BENZOCAINE 15 MG-MENTHOL 2.6 * Take 1 Lozenge by mouth every * TENS UNIT AND ELECTRODES COMB* 1 Package twice daily. GABAPENTIN 300 MG CAPSULE Take 1 capsule by mouth three* OMEPRAZOLE 20 MG CAPSULE,ROXANN* Take 1 capsule by mouth once * ACETAMINOPHEN 325 MG CAPSULE Take by mouth. DASETTA 7/7/7 (28) 0.5 MG(7)/* Take 1 tablet by mouth once d * DEXTROAMPHETAMINE-AMPHETAMINE* Take 30 mg by mouth once dina * Problem List As Of Date: 03/24/2020 (None) Encounter Status:Closed by CHAI RAMIREZ on 03/24/20 progress on 2019-11 PROGRESS HNO ID: [id number] Normal 12-01-2019 [facility] Author: Jeannine Leon) Ramon Hong ([id number]) Service: ? Author Type: Surgical Oncologist Type: Progress Notes Filed: 12/01/2019 11:24 AM Note Text: ED Follow Up: Patient discharged from [facility] ED on 03/2020. 1. How are you feeling since your ED visit? Left msg Have your symptoms improved or resolved? left msg 2. Were you prescribed any medications while in the ED or ad vised to stop any medication? left msg - If yes, were you able to fill your prescriptions? left msg -if stopped medication, what was the medication? Left msg 3. Were you advised to schedule a follow up appointment with your provider? left msg - If no, Do you feel like you need an appointment scheduled? left msg - If yes, Do you need this scheduled now or has this already been scheduled? left msg 4. Were you able to contact the office or project consultant provider kyle covarrubias to your ED visit? left msg 5. Is there anything else I can do for you today? left msg Jeannine Briseno MA cnptoutrea on CNPTOUTREACH Patient Outreach (AGINTMLW) [place] 12-01-2019 [place] JEIMY Gonzales ([id number]) 1985 [facility] Date Time Provider Department ([id number]) 12/01/19 MICKI VIZCARRA AGINTMLW During your visit today, we recorded the following informati on about you: Jeannine Briseno MA 12/01/2019 11:24 AM Signed ED Follow Up: Patient discharged from [facility] ED on 03/2020. 1. How are you feeling since your ED visit? Left msg Have your symptoms improved or resolved? left msg 2. Were you prescribed any medications while in the ED or advised to stop any medication? left msg - If yes, were you able to fill your prescriptions? left msg -if stopped medication, what was the medication? Left msg 3. Were you advised to schedule a follow up appointment wi th your provider? left msg - If no, Do you feel like you need an appointment scheduled? left msg - If yes, Do you need this scheduled now or has this a lready been scheduled? left msg 4. Were you able to contact the office or project consultant provider prior to your ED visit? left msg 5. Is there anything else I can do for you today? left msg Jeannine Briseno MA Allergies As of Date: 12/01/2019 Noted Allergy Reaction BACTRIM (SULFAMETHOXAZOLE-TRIMETH*08/23/2016 4 - Hives LATEX 06/26/2017 2 - Rash SULFA (SULFONAMIDE ANTIBIOTICS) 08/23/2016 4 - Hives Date Reviewed: 11/09/2019 Reviewed by: Eusebia Patino (Rn) LINDA Coyne - Fully Assessed Reason for Visit: ER F/U [41] Prescriptions as of 12/01/2019 Sig: FLUOXETINE 20 MG CAPSULE Take 20 mg by mouth once dina* NAPROXEN 500 MG TABLET Take 1 tablet by mouth twice * CYCLOBENZAPRINE 10 MG TABLET Take 1 tablet by mouth every * BENZOCAINE 15 MG-MENTHOL 2.6 * Take 1 Lozenge by mouth every * TENS UNIT AND ELECTRODES COMB* 1 Package twice daily. GABAPENTIN 300 MG CAPSULE Take 1 capsule by mouth three* OMEPRAZOLE 20 MG CAPSULE,ROXANN* Take 1 capsule by mouth once * ACETAMINOPHEN 325 MG CAPSULE Take by mouth. DASETTA 7/7/7 (28) 0.5 MG(7)/* Take 1 tablet by mouth once d * DEXTROAMPHETAMINE-AMPHETAMINE* Take 30 mg by mouth once dina * Problem List As Of Date: 12/01/2019 (None) Encounter Status:Closed by JEANNINE BRISENO MA on 12/01/19 progress on 2019-10 PROGRESS HNO ID: [id number] Normal 11-10-2019 [facility] Author: Maricarmen (Leonid) Celso Hong ([id number]) Service: ? Author Type: Surgical Oncologist Type: Progress Notes Filed: 11/10/2019 11:57 AM Note Text: ED Follow Up: Patient discharged from [facility] ED on 11/09/2019. 1. How are you feeling since your ED visit? NA Have your symptoms improved or resolved? Not applicable 2. Were you prescribed any medications while in the ED or ad vised to stop any medication? Not applicable - If yes, were you able to fill your prescriptions? Not appl icable -if stopped medication, what was the medication? NA 3. Were you advised to schedule a follow up appointment with your provider? Not applicable - If no, Do you feel like you need an appointment scheduled? Not applicable - If yes, Do you need this scheduled now or has this already been scheduled? Not applicable 4. Were you able to contact the office or project consultant provider kyle covarrubias to your ED visit? Not applicable 5. Is there anything else I can do for you today? Not applic able Called left message on machine to see how patient is feeling and advised to contact the office if she needs anything. Rachel Denson cnptoutreach on CNPTOUTREACH Patient Outreach (AGFAMPLE) Normal 11-10-2019 [place] [facility] JEIMY MORALES ([id number]) 1985 [facility] Date Time Provider Department ([id number]) 11/10/19 MICKI VIZCARRA During your visit today, we recorded the following informati on about you: Maricarmen Houston MA 11/10/2019 11:57 AM Signed ED Follow Up: Patient discharged from [facility] ED on 11/09/2019. 1. How are you feeling since your ED visit? NA Have your symptoms improved or resolved? Not applicable 2. Were you prescribed any medications while in the ED or advised to stop any medication? Not applicable - If yes, were you able to fill your prescriptions? Not appl icable -if stopped medication, what was the medication? NA 3. Were you advised to schedule a follow up appointment wi th your provider? Not applicable - If no, Do you feel like you need an appointment schedule d? Not applicable - If yes, Do you need this scheduled now or has this a lready been scheduled? Not applicable 4. Were you able to contact the office or project consultant provider prior to your ED visit? Not applicable 5. Is there anything else I can do for you today? Not applic able Called left message on machine to see how patient is feeli ng and advised to contact the office if she needs anything. Maricarmen Houston MA Allergies As of Date: 11/10/2019 Noted Allergy Reaction BACTRIM (SULFAMETHOXAZOLE-TRIMETH*08/23/2016 4 - Hives LATEX 06/26/2017 2 - Rash SULFA (SULFONAMIDE ANTIBIOTICS) 08/23/2016 4 - Hives Date Reviewed: 11/09/2019 Reviewed by: Eusebia Patino (Rn) LINDA Coyne - Fully Assessed Prescriptions as of 11/10/2019 Sig: FLUOXETINE 20 MG CAPSULE Take 20 mg by mouth once dina* NAPROXEN 500 MG TABLET Take 1 tablet by mouth twice * CYCLOBENZAPRINE 10 MG TABLET Take 1 tablet by mouth every * BENZOCAINE 15 MG-MENTHOL 2.6 * Take 1 Lozenge by mouth every * TENS UNIT AND ELECTRODES COMB* 1 Package twice daily. GABAPENTIN 300 MG CAPSULE Take 1 capsule by mouth three* OMEPRAZOLE 20 MG CAPSULE,ROXANN* Take 1 capsule by mouth once * ACETAMINOPHEN 325 MG CAPSULE Take by mouth. DASETTA (28) 0.5 MG(7)/* Take 1 tablet by mouth once d * DEXTROAMPHETAMINE-AMPHETAMINE* Take 30 mg by mouth once dina * Problem List As Of Date: 11/10/2019 (None) Encounter Status:Closed by CELSO ORLANDO MARICARMEN on 11/10/19 xr lumbar 3v ap/lat/l5-s1 on 2019-11-09 XR LUMBAR 3V * * *Final Report* * * Normal 10-21-2019 [facility] AP/LAT/L5-S1 DATE OF EXAM: Nov 09 2019 7:[facility] LDX 5228 - XR LUMBAR 3V AP/LAT/L5-S1 / ([id number]) PROCEDURE REASON: Back pain, < 6wks, no red flags, no prior management * * * * Physician Interpretation * * * * EXAMINATION: THREE VIEWS LUMBAR SPINE CLINICAL HISTORY: Pain following a fall Back pain, < 6wks, n o red flags, no prior management Technique: AP, lateral and coned L5-S1 views of the lumbar s pine Comparison: Lumbar spine 04/22/2019 RESULT: COUNTING REFERENCE: The lumbosacral junction is considered L 5-S1. . The L4-L5 disc space approximates the iliac crest. FRACTURE: No acute or chronic fracture is seen. ALIGNMENT: No subluxations are seen. DISC SPACES: No significant disk space narrowing is seen. SACRUM AND SI JOINTS: Unremarkable as visualized ABDOMINAL CALCIFICATIONS: None significant visualized. IMPRESSION: Unremarkable lumbar spine. No acute osseous abnormality is s een. If the patient's symptoms persist consider MRI. Lens Block Gauger: PSYCHIATRIC Transcribe Date/Time: Nov 09 2019 7:43P Dictated by : KWASI BUSTAMANTE MD This examination was interpreted and the report reviewed and electronically signed by: KWASI BUSTAMANTE MD on Nov 09 2019 7:45PM EST xr elbow 3v ap/lat/other lt on 2019-11-09 XR ELBOW 3V * * *Final Report* * * Normal 11-08 [facility] AP/LAT/OTHER LT DATE OF EXAM: Nov 09 2019 7:41[facility] LDX 5324 - XR ELBOW 3V AP/LAT/OTHER LT / 34 ([id number]) PROCEDURE REASON: Elbow pain, initial exam * * * * Physician Interpretation * * * * z EXAMINATION: XR ELBOW 3V AP/LAT/OTHER LT HISTORY: Pt. fell x one day, c/o low back pain and left elbo w pain. Elbow pain, initial exam. TECHNIQUE: XR ELBOW 3V AP/LAT/OTHER LT Laterality: LEFT Number of different views (projections): 3 M: XB_1 COMPARISON: RESULT: No fracture or subluxation is seen. No evidence of a joint e ffusion. No other significant abnormality. IMPRESSION: Unremarkable exam [facility]ens [facility] Transcribe Date/Time: Nov 09 2019 7:45P Dictated by : KWASI BUSTAMANTE MD This examination was interpreted and the report reviewed and electronically signed by: KWASI BUSTAMANTE MD on Nov 09 2019 7:46PM EST urine hcg, qual. on 2019-11-09 Beta HCG ( test) Negative Negative Normal 10-21 [facility] (00 000) Comment: Performed By: #### LHCG2 ### # [facility] [address] [address] Specific [place], Ur 1.025 1.005-1.030 Normal 020 [facility] (00 000) Comment: Performed By: #### LHCG2 ### # [facility] [address] [address] ed prov note on ED PROV NOTE HNO ID: [id number] Normal 11-09-19 [facility] Author: Yari Andres DO [place] ([id number]) Service: Emergency Medicine Author Type: Physician Type: ED Provider Notes Filed: 11/09/2019 10:29 PM Note Text: ED Provider Note Patient Name: Jeimy Morales SERVICE DATE: 11/09/19 History Patient presents with: Fall Back Pain Elbow Injury Jeimy Morales is a 34 year old female with history of ADH D, psychiatric disorder who presents with lower and lumbar back pain follow ing injury. Patient is NOT currently taking steroids and has NO history of IV drug abuse. - Symptoms began 1 days prior to arrival. Onset was sudden. - Severity: moderate - Timing: constant - Quality: sore - Pain is exacerbated by movement and palpation. Pain radiat es to left buttock/left upper leg. - Pain is not exacerbated by rest. - Symptoms are associated with sciatica, left elbow pain. - Symptoms are not associated with bowel/bladder incontinenc e, chills, fever, numbness, paresthesia, tingling, urinary symptoms, we akness, abdominal pain, hematuria, dysuria, difficulty urinating, he ad injury, headache, neck pain, upper back pain. - Improved by nothing. - Not Improved by anything. Patient states she had her socks on playing with her kids an d slipped landing mainly on her left elbow then on her low back. She d enies hitting her head or passing out. She is not on blood thinners. She s tates her left elbow is sore, her right elbow is not painful. She states he r low back is sore and radiates into her left buttock and sometimes left u pper leg. She denies bowel or bladder incontinence. PAST MEDICAL HISTORY Diagnosis Date - ADHD (attention deficit hyperactivity disorder) - Post depression - Psychiatric disorder PAST SURGICAL HISTORY Procedure Laterality Date - REMOVAL OF SKIN LESION 1992 susan removed no complication FAMILY HISTORY Problem Relation Age of Onset - Hypertension Mother - Asthma Mother - Hypertension Father - Cancer Father lung - other (heart disease) Father - other (blood clots) Father Social History Tobacco Use - Smoking status: Current Some Day Smoker Packs/day: 0.50 Years: 10.00 Pack years: 5.00 Types: Cigarettes - Smokeless tobacco: Never Used Substance and Sexual Activity - Alcohol use: Yes Comment: socially - Drug use: No - Sexual activity: Yes ALLERGIES Allergen Reactions - Bactrim [Sulfametho* Hives - Latex Rash - Sulfa (Sulfonamide * Hives Review of Systems Constitutional: Negative for fever. Eyes: Negative for photophobia and visual disturbance. Respiratory: Negative for shortness of breath. Cardiovascular: Negative for chest pain. Gastrointestinal: Negative for abdominal pain, nausea and vo miting. Genitourinary: Negative for decreased urine volume, difficul ty urinating, dysuria, flank pain, hematuria and pelvic pain. Musculoskeletal: Positive for arthralgias (left elbow) and b ack pain. Negative for joint swelling and neck pain. Skin: Negative for rash and wound. Neurological: Negative for syncope, weakness and headaches. Psychiatric/Behavioral: Negative for agitation and confusion . Physical Exam BP 135/89 Pulse 84 Temp (Src) 98.7 (Temporal) Resp 20 Wt 130 lb (59.0kg) SpO2 100% LMP 10/20/2018 O2 Therapy: Room Air Physical Exam Vitals signs and nursing note reviewed. Constitutional: General: She is not in acute distress. Appearance: She is not ill-appearing, toxic-appearing or yahaira phoretic. HENT: Head: Normocephalic and atraumatic. Right Ear: Tympanic membrane, ear canal and external ear nor mal. Left Ear: Tympanic membrane, ear canal and external ear norm al. Mouth/Throat: Mouth: Mucous membranes are moist. Pharynx: Oropharynx is clear. Eyes: General: No scleral icterus. Extraocular Movements: Extraocular movements intact. Conjunctiva/sclera: Conjunctivae normal. Pupils: Pupils are equal, round, and reactive to light. Neck: Musculoskeletal: Normal range of motion and neck supple. Cardiovascular: Rate and Rhythm: Regular rhythm. Tachycardia present. Pulses: Normal pulses. Pulmonary: Effort: Pulmonary effort is normal. Breath sounds: Normal breath sounds. Abdominal: General: Abdomen is flat. Bowel sounds are normal. There is no distension. Tenderness: There is no abdominal tenderness. There is no ri ght CVA tenderness, left CVA tenderness, guarding or rebound. Musculoskeletal: Left shoulder: She exhibits normal range of motion, no tende rness, no bony tenderness, no swelling, no effusion, no crepitus, no d eformity, no laceration, no pain, no spasm, normal pulse and normal stren gth. Right elbow: She exhibits normal range of motion, no swellin g, no effusion, no deformity and no laceration. No tenderness foun d. No radial head, no medial epicondyle, no lateral epicondyle and no ole cranon process tenderness noted. Left elbow: She exhibits normal range of motion, no swelling , no effusion, no deformity and no laceration. Tenderness found. Olecranon process tenderness noted. No radial head, no medial epicondy le and no lateral epicondyle tenderness noted. Left wrist: She exhibits normal range of motion, no tenderne ss, no bony tenderness, no swelling, no effusion, no crepitus, no deform ity and no laceration. Cervical back: She exhibits normal range of motion, no tende rness, no bony tenderness, no swelling, no edema, no deformity, no lac eration, no pain and no spasm. Thoracic back: She exhibits normal range of motion, no tende rness, no bony tenderness, no swelling, no edema, no deformity, no lac eration, no pain and no spasm. Lumbar back: She exhibits tenderness, bony tenderness and pa in. She exhibits no swelling, no edema, no deformity and no lacerati on. Back: Right lower leg: No edema. Left lower leg: No edema. Comments: Midline lower lumbar tenderness. Negative straight leg raises bilaterally. No foot drop. Sensation intact. Pulses intact d istally. Skin: General: Skin is warm and dry. Capillary Refill: Capillary refill takes less than 2 seconds . Neurological: General: No focal deficit present. Mental Status: She is alert and oriented to person, place, a nd time. GCS: GCS eye subscore is 4. GCS verbal subscore is 5. GCS mo tor subscore is 6. Cranial Nerves: Cranial nerves are intact. Sensory: Sensation is intact. Motor: Motor function is intact. Psychiatric: Mood and Affect: Mood normal. Behavior: Behavior normal. Diagnostic Testing ED Labs Ordered and Reviewed HCG QUALITATIVE URINE (AK,AV,EU,FV,HL,JEFF,MM,SP) Procedures ED Course / Clinical Impression Clinical Impressions as of Nov 08 2228 Acute low back pain, unspecified back pain laterality, unspe cified whether sciatica present Contusion of left elbow, initial encounter MDM / Disposition / Plan X-rays ordered. Left elbow x-ray results: IMPRESSION: Unremarkable exam Lumbar spine x-ray results: IMPRESSION: Unremarkable lumbar spine. ? No acute osseous abnormality is seen. On re-evaluation: Patient resting comfortably in bed. She is requesting a kal t for her back pain. I have ordered Toradol. I discussed all results with the patient. She is neurologica lly intact. No red flags currently. Will d/c home with prescriptions for naprosyn and flexeril. She was instructed on reasons to return to the ED, otherwise follow up with primary. She is agreeable with plan. Disposition The patient was discharged. Counseled patient regarding radiology results and suspected diagnosis. As well as the need for follow-up. Discharged home with verbal and written instructions. They were instructed to return as needed for p ersistent or worsening symptoms or any new concerns. Condition at disposition is stable. SIGNATURE: Yari Andres, DO Yari Andres DO 11/09/192228 ed note on ED NOTE HNO ID: [id number] Normal 11-09-2019 [facility] Author: Asia Bartholomew RN [place] ([id number]) Service: Emergency Medicine Author Type: Registered Nurse Type: ED Notes Filed: 11/09/2019 9:03 PM Note Text: Dc instr to fu w pmd, return prn, meds as rxd. Verb und. Agr eeable to plan. Pt is AANDO, wdp, resps unlabored, relaxed expression and posture. Ambulates from ER with steady upright gait. ED NOTE HNO ID: [id number] Normal 11-09-2019 [facility] Author: Asia Frances) LINDA Bartholomew [place] ([id number]) Service: Emergency Medicine Author Type: Registered Nurse Type: ED Notes Filed: 11/09/2019 8:31 PM Note Text: Patient informed: the name of medication, why we are giving it, possible side effects, what they may expect to feel, and was offered a chance to ask questions, prior to the administration of toradol ED NOTE HNO ID: [id number] Normal 11-09-2019 [facility] Author: Eusebia Patino (Rn) LINDA Coyne [place] ([id number]) Service: ? Author Type: Registered Nurse Type: ED Notes Filed: 11/09/2019 6:34 PM Note Text: Pt arrives with steady gait to ED bed 12 C/O slip and fall yesterday in house Reports falling onto back Denies head injury C/O lower back pain and bilateral elbow since cnco on 2019-09-02 CNCO Letter Text Normal 09-02-2019 [facility] ([id number]) cnpn on 2019-08-27 CNPN Telephone (AGSPINE2) Normal 0 [facility] JEIMY MORALES ([id number]) 1985 [facility] Time Provider Department Center 08/27/19 ROCIO STEELE2 ([id number]) During your visit today, we recorded the following informati on about you: Duarte Fortuneherty 08/27/2019 12:11 PM Signed NORFLEX has been SUBMITTED to [employer]. Duarte Sher Duarte Connie 09/03/2019 10:06 AM Signed NORFLEX has been APPROVED. Date Span: 07/28/2019 to 08/27/2020 Auth: [id number] Patient notified. Duarte Connie Allergies As of Date: 08/27/2019 Noted Allergy Reaction BACTRIM (SULFAMETHOXAZOLE-TRIMETH*08/23/2016 4 - Hives LATEX 06/26/2017 2 - Rash SULFA (SULFONAMIDE ANTIBIOTICS) 08/23/2016 4 - Hives Date Reviewed: 07/08/2019 Reviewed by: Rocio Steele - Fully Assessed Reason for Visit: Medication Authorization [[id number]] Cmt: Norflex Prescriptions as of 08/27/2019 Sig: MELOXICAM 15 MG TABLET Take 1 tablet by mouth once d* ORPHENADRINE CITRATE ER 100 M* Take 1 tablet by mouth twice * BENZOCAINE-MENTHOL 15 MG-2.6 * Take 1 Lozenge by mouth every * TENS UNIT AND ELECTRODES COMB* 1 Package twice daily. GABAPENTIN 300 MG CAPSULE Take 1 capsule by mouth three* OMEPRAZOLE 20 MG CAPSULE,ROXANN* Take 1 capsule by mouth once * ACETAMINOPHEN 325 MG CAPSULE Take by mouth. DASETTA (28) 0.5 MG(7)/* Take 1 tablet by mouth once d * DEXTROAMPHETAMINE-AMPHETAMINE* Take 30 mg by mouth once dina * Problem List As Of Date: 08/27/2019 (None) Encounter Status:Closed by DUARTE SHER on 08/27/19 eusebio on 2019-07-31 [facility]) Normal [address] [place] [address] [facility] JEIMY MORALES ([id number]) 1985 [place] Date Time Provider Department ([id number]) 07/31/19 MICKI VIZCARRA INTML During your visit today, we recorded the following informati on about you: Michaela Whelan LPN 07/31/2019 11:45 AM Signed Patient called in and stated that her and her children have bad case of head lice. Her pastry sous chef sent in RX treatment for children since OTC not working. Patient requesting RX be sent in for her as well. Last visit 04/29/[address] Vizcarra Please advise? Thanks NICK Rodarte MD 07/31/2019 3:02 PM Addendum Prescription for permethrin 1% sent in - possible side effects including local discomfort of the scalp, localized burning, pruritus or eryt naif. To be used once, May repeat in 7 to 10 days if live lice or nits observed. Hoa Gonsalez MD 07/31/2019 3:02 PM Signed Addended by: MD HOA GONSALEZ on: 07/31/2019 03:02 PM Modules accepted: Orders Michaela Whelan LPN 07/31/2019 3:39 PM Signed Patient called and aware Michaela Wehlan LPN Allergies As of Date: 07/31/2019 Noted Allergy Reaction BACTRIM (SULFAMETHOXAZOLE-TRIMETH*08/23/2016 4 - Hives LATEX 06/26/2017 2 - Rash SULFA (SULFONAMIDE ANTIBIOTICS) 08/23/2016 4 - Hives Date Reviewed: 07/08/2019 Reviewed by: Rocio Steele - Fully Assessed Reason for Visit: Patient Question [1477] Cmt: head lice Reason For Visit History Recorded Order(s):permethrin (LICE KILLING, PERMETHRIN,) 1 % lotionApply 1 application to affected area one time only for 1 dose. follow package directions.May repeat in 7-10 days if live lice/nits observe d.Disp: 1 BottleRfl: 1 Prescriptions as of 07/31/2019 Sig: LICE KILLING (PERMETHRIN) 1 %* Apply 1 application to affect * MELOXICAM 15 MG TABLET Take 1 tablet by mouth once d* ORPHENADRINE CITRATE ER 100 M* Take 1 tablet by mouth twice * BENZOCAINE-MENTHOL 15 MG-2.6 * Take 1 Lozenge by mouth every * TENS UNIT AND ELECTRODES COMB* 1 Package twice daily. GABAPENTIN 300 MG CAPSULE Take 1 capsule by mouth three* OMEPRAZOLE 20 MG CAPSULE,ROXANN* Take 1 capsule by mouth once * ACETAMINOPHEN 325 MG CAPSULE Take by mouth. DASETTA 7/7/7 (28) 0.5 MG(7)/* Take 1 tablet by mouth once d * DEXTROAMPHETAMINE-AMPHETAMINE* Take 30 mg by mouth once dina * Problem List As Of Date: 07/31/2019 (None) Prescriptions ordered this encounter Disp Refills Start End LICE KILLING (PERMETHRIN) 1 % TOPICA* 1 Obdulio* 1 07/31/201904/2020 Route: TOPICAL Sig: Apply 1 application to affected area one time only for 1 dose. follow package directions.May repeat in 7-10 days if live lice/nits observed. Encounter Status:Closed by MICHAELA WHELAN LPN on 07/31/19 progress on 2019-06 PROGRESS HNO ID: [id number] Normal 07-08-2019 [place] Author: Rocio Steele [facility] Service: ? ([id number]) Author Type: Physician Type: Progress Notes Filed: 07/08/2019 12:26 PM Note Text: Patient Name: Jeimy Morales Patient : 1985 Patient Age: [age] year old Gender: female CC: Patient presents with: Low Back Pain SUBJECTIVE The patient presents for follow up of neck and low back pain . The patient describes the pain as 5/10 burning, shooting and achy. The p atient has pain, numbness and tingling to the posterior thigh on the le ft. States she has numbness in both hands at times, denies shooting pain do wn the arms. The back pain is aggravated by prolonged sitting, neck is wo rse with sleeping on her side. Has not started PT. Gabapentin helped a little but made her too tired she could not use it. Has started TENs wi th some relief. The musculoskeletal, and neurological review of systems was negative unless otherwise noted. The patient's past medical history, allergies, medication list, social history, and family medical history were documented, updated, and reviewed in the chart. PDMP website checked and validated. All prescriptions have b een APPROPRIATELY filled. No suspicious activity was identified. 07/08/2019 by Rocio Steele MD 05/2019 EMG bilateral moderate carpal tunnel. Nursing Notes: Dirk Neal CMA 07/08/2019 11:52 AM Signed Review of Systems Eyes: Negative for blurred vision. Respiratory: Negative for shortness of breath.? Cardiovascular: Negative for chest pain. Negative for leg sw elling. Gastrointestinal: Negative for constipation, diarrhea, nause a?and vomiting. Genitourinary: Negative for dysuria. Skin: Negative for itching. Neurological: Positive for headaches. Negative for dizziness , Positive tingling?and weakness. Endo/Heme/Allergies: Negative for bruising/bleeding easily. Psychiatric/Behavioral: Negative for depression?and suicidal ideas. ROS entered by:Dirk Neal CMA No question data found. ALLERGIES Allergen Reactions - Bactrim [Sulfametho* Hives - Latex Rash - Sulfa (Sulfonamide * Hives Current Outpatient Medications Medication Sig Dispense Refill - benzocaine-menthol (CEPACOL SORE THROAT, LETA-MEN,) 15-2.6 mg lozg lozenge Take 1 Lozenge by mouth every 3 hours as needed. 60 Lozenge 0 - TENS unit and electrodes cmpk 1 Package twice daily. 1 Dev ice 0 - omeprazole (PRILOSEC) 20 mg capsule Take 1 capsule by mout h once daily. 30 capsule 2 - acetaminophen (TYLENOL) 325 mg cap Take by mouth. - DASETTA //, 28, 0.5/0.75/1 mg- 35 mcg per tablet Take 1 tablet by mouth once daily. 3 - dextroamphetamine-amphetamine (ADDERALL XR) 30 mg 24 hr ca psule Take 30 mg by mouth once daily. - meloxicam (MOBIC) 15 mg tablet Take 1 tablet by mouth once daily. 30 tablet 2 - orphenadrine ER (NORFLEX) 100 mg tablet Take 1 tablet by m outh twice daily. 60 tablet 2 - gabapentin (NEURONTIN) 300 mg capsule Take 1 capsule by mo uth three times daily for 30 days. 90 capsule 0 No current facility-administered medications for this visit. There is no problem list on file for this patient. Social History Tobacco Use - Smoking status: Current Some Day Smoker Packs/day: 0.50 Years: 10.00 Pack years: 5.00 Types: Cigarettes - Smokeless tobacco: Never Used Substance Use Topics - Alcohol use: Yes Comment: socially - Drug use: No Family History Problem Relation Age of Onset - Hypertension Mother - Asthma Mother - Hypertension Father - Cancer Father lung - other (heart disease) Father - other (blood clots) Father OBJECTIVE Vitals: BP 148/98 Pulse 82 Wt 59.4 kg (131 lb) BMI 21. 14 kg/m? General: Alert, cooperative, well appearing, and in no appar ent distress. Musculoskeletal: The patient's gait is normal. Neck: There is normal range of motion of the C-spine. There is no bony tenderness. There is BL tenderness to palpi tation in the paraspinal regions. +trigger points Strength is 5/5 in the upper extremity bilaterally. Sensatio n is intact throughout bilateral upper extremities. There is a negative Spurling's maneuver. [place]'s negative Back: Inspection of the back demonstrates there is no obviou s deformity or misalignment. There is bony tenderness along the lumbar v ertebrae, none along the sacroiliac joints. There is Bl L>>R paraspina l muscle tenderness. Range of motion testing demonstrates full flexion, pain with extension, side bending and rotation of the back. Pain with extension Strength is 5/5 in the lower extremity bilaterally. Sensatio n is intact throughout bilateral lower extremities. There is a negative straight leg raise and femoral stretch t est. There is normal internal and external rotation of the hip. The pirifo rmis has normal flexibility and is tender on the left. Skin: The skin is without jaundice. It is intact without pat hologic lesions, erythema, vesicles, discharge or rash. Palpitation of the skin is normal without induration, subcutaneous nodules or tighte mary. Extremities: This is no clubbing, cyanosis or edema. Periphe ral pulses are 2+. Return in about 3 months (around 10/07/2019). ASSESSMENT/PLAN: We discussed the natural history of this condition, differen tial diagnoses, and treatment options. Guidelines for activity we re given. We discussed options for treatment including conservative ca re, medications with side effects and injections with risks and benefits. Continue Norflex, Add mobic daily with food Start PT Continue TENs, heat 1. Myofascial pain - ICD9: 729.1, ICD10: M79.18 (primary yahaira gnosis) - MELOXICAM 15 MG TABLET 2. Carpal tunnel syndrome, bilateral - ICD9: 354.0, ICD10: G 56.03 Start braces at night - MELOXICAM 15 MG TABLET 3. Chronic bilateral low back pain without sciatica - ICD9: 724.2, 338.29, ICD10: M54.5, G89.29 - MELOXICAM 15 MG TABLET 4. Neck pain - ICD9: 723.1, ICD10: M54.2 - ORPHENADRINE CITRATE ER 100 MG TABLET,EXTENDED RELEASE Rocio Steele MD I have confirmed and edited as necessary, the PFSH and ROS o btained by others. The history and physical exam as above was completed in [facility] today July 08, 2019 and is unchanged from 04/22/19 except where noted. cnov on 2019-07-08 CNOV Office Visit (SPAGBA) Normal 07-08-20 19 [place] [facility] JEIMY MORALES ([id number]) 1985 [facility] Date Time Provider Department Center 07/08/19 11:00 AM ROCIO STEELE ([id number]) During your visit today, we recorded the following informati on about you: Pulse Blood pressure Weight 82/minute 148/98 59.4 kg Dirk Neal CMA 07/08/2019 11:52 AM Signed Review of Systems Eyes: Negative for blurred vision. Respiratory: Negative for shortness of breath.? Cardiovascular: Negative for chest pain. Negative for leg sw elling. Gastrointestinal: Negative for constipation, diarrhea, [place]?and vomiting. Genitourinary: Negative for dysuria. Skin: Negative for itching. Neurological: Positive for headaches. Negative for dizziness , Positive tingling?and weakness. Endo/Heme/Allergies: Negative for bruising/bleeding easily. Psychiatric/Behavioral: Negative for depression?and suicidal ideas. ROS entered by:JOYA Chiang MD 07/08/2019 12:26 PM Signed Patient Name: Jeimy Morales Patient : 1985 Patient Age: [age] year old Gender: fem patricia CC: Patient presents with: Low Back Pain SUBJECTIVE The patient presents for follow up of neck and low back pain . The patient describes the pain as 5/10 burning, shooting and achy. The patient has pain, numbness and tingling to the posterior thigh on the left. St ates she has numbness in both hands at times, denies shooting pain down the arms. The back pain is aggravated by prolonged sitting, neck is worse wit h sleeping on her side. Has not started PT. Gabapentin helped a little but m rani her too tired she could not use it. Has started TENs with some relief. The musculoskeletal, and neurological review of systems wa s negative unless otherwise noted. The patient's past medical history, allergi es, medication list, social history, and family medical history were documented, updated, and reviewed in the chart. PDMP website checked and validated. All prescrip tions have been APPROPRIATELY filled. No suspicious activity was identified. 1 09/08/2018 by Rocio Steele MD 05/2019 EMG bilateral moderate carpal tunnel. Nursing Notes: Dirk Neal CMA 07/08/2019 11:52 AM Signed Review of Systems Eyes: Negative for blurred vision. Respiratory: Negative for shortness of breath.? Cardiovascular: Negative for chest pain. Negative for leg sw elling. Gastrointestinal: Negative for constipation, diarrhea, barak sea?and vomiting. Genitourinary: Negative for dysuria. Skin: Negative for itching. Neurological: Positive for headaches. Negative for dizziness , Positive tingling?and weakness. Endo/Heme/Allergies: Negative for bruising/bleeding easily. Psychiatric/Behavioral: Negative for depression?and suicidal ideas. ROS entered by:Dirk Neal CMA No question data found. ALLERGIES Allergen Reactions - Bactrim [Sulfametho* Hives - Latex Rash - Sulfa (Sulfonamide * Hives Current Outpatient Medications Medication Sig Dispense Refill - benzocaine-menthol (CEPACOL SORE THROAT, LETA-MEN,) 15-2.6 mg lozg lozenge Take 1 Lozenge by mouth every 3 hours as needed. 60 Lozenge 0 - TENS unit and electrodes cmpk 1 Package twice daily. 1 Dev ice 0 - omeprazole (PRILOSEC) 20 mg capsule Take 1 capsule b y mouth once daily. 30 capsule 2 - acetaminophen (TYLENOL) 325 mg cap Take by mouth. - DASETTA //, 28, 0.5/0.75/1 mg- 35 mcg per tablet Take 1 tablet by mouth once daily. 3 - dextroamphetamine-amphetam ine (ADDERALL XR) 30 mg 24 hr capsule Take 30 mg by mouth once daily. - meloxicam (MOBIC) 15 mg ta blet Take 1 tablet by mouth once daily. 30 tablet 2 - orphenadrine ER (NORFLEX) 100 mg tablet Take 1 tablet by mouth twice daily. 60 tablet 2 - gabapentin (NEURONTIN) 300 mg capsule Take 1 capsule by mouth three times daily for 30 days. 90 capsule 0 No current facility-administered medications for this visit. There is no problem list on file for this patient. Social History Tobacco Use - Smoking status: Current Some Day Smoker Packs/day: 0.50 Years: 10.00 Pack years: 5.00 Types: Cigarettes - Smokeless tobacco: Never Used Substance Use Topics - Alcohol use: Yes Comment: socially - Drug use: No Family History Problem Relation Age of Onset - Hypertension Mother - Asthma Mother - Hypertension Father - Cancer Father lung - other (heart disease) Father - other (blood clots) Father OBJECTIVE Vitals: BP 148/98 Pulse 82 Wt 59.4 kg (131 lb) BMI 21. 14 kg/m? General: Alert, cooperative, well appearing, and in no appar ent distress. Musculoskeletal: The patient's gait is normal. Neck: There is normal range of motion of the C-spine. There is no bony tenderness. There is BL tenderness to palpi tation in the paraspinal regions. +trigger points Strength is 5/5 in the upper extremity bilaterally. Sensatio n is intact throughout bilateral upper extremities. There is a negative Spurling's maneuver. [place]'s negative Back: Inspection of the back demonstrates there is no obviou s deformity or misalignment. There is bony tenderness along the lumbar vertebrae, none along the sacroiliac joints. There is Bl L>>R paraspinal muscle te nderness. Range of motion testing demonstrates full flexion, gertrudis n with extension, side bending and rotation of the back. Pain with extension Strength is 5/5 in the lower extremity bilaterally. Sensatio n is intact throughout bilateral lower extremities. There is a negative straight leg raise and femoral stretch t est. There is normal internal and external rotation of the hip. The piri formis has normal flexibility and is tender on the left. Skin: The skin is without jaundice. It is intact witho ut pathologic lesions, erythema, vesicles, discharge or rash. Palpitation of the sk in is normal without induration, subcutaneous nodules or tightening. Extremities: This is no clubbing, cyanos is or edema. Peripheral pulses are 2+. Return in about 3 months (around 10/07/2019). ASSESSMENT/PLAN: We discussed the natural his tory of this condition, differential diagnoses, and treatment options. Guidelines for activity were given. We discussed options for treatment including conservative care, medications with side effects and injections with risks and benefits. Continue Norflex, Add mobic daily with food Start PT Continue TENs, heat 1. Myofascial pain - ICD9: 729.1, ICD10: M79.18 (primary yahaira gnosis) - MELOXICAM 15 MG TABLET 2. Carpal tunnel syndrome, bilateral - ICD9: 354.0, ICD10: G 56.03 Start braces at night - MELOXICAM 15 MG TABLET 3. Chronic bilateral low back pain without sciatica - ICD9: 724.2, 338.29, ICD10: M54.5, G89.29 - MELOXICAM 15 MG TABLET 4. Neck pain - ICD9: 723.1, ICD10: M54.2 - ORPHENADRINE CITRATE ER 100 MG TABLET,EXTENDED RELEASE Rocio Steele MD I have confirmed and edited as necessary , the PFSH and ROS obtained by others. The history and physical exa m as above was completed in entirety today July 08, 2019 and is unchanged from 04/22/19 except where noted. Referring Provider: ROCIO STEELE [[id number]] Allergies As of Date: 07/08/2019 Noted Allergy Reaction BACTRIM (SULFAMETHOXAZOLE-TRIMETH*08/23/2016 4 - Hives LATEX 06/26/2017 2 - Rash SULFA (SULFONAMIDE ANTIBIOTICS) 08/23/2016 4 - Hives Date Reviewed: 07/08/2019 Reviewed by: Rocio Steele - Fully Assessed Reason for Visit: Low Back Pain [126] Primary Visit Diagnosis:Myofascial pain [M79.18] Other Visit Diagnoses:Carpal tunnel syndrome, bilateral [G56 .03] Chronic bilateral low back pain without sciatica [M54.5, G89.29] Neck pain [M54.2] Order(s):meloxicam (MOBIC) 15 mg tabletTake 1 tablet by mout h once daily.Disp: 30 tabletRfl: 2 orphenadrine ER (NORFLEX) 100 mg tabletTake 1 tablet by mout h twice daily.Disp: 60 tabletRfl: 2 Prescriptions as of 07/08/2019 Sig: BENZOCAINE-MENTHOL 15 MG-2.6 * Take 1 Lozenge by mouth every * TENS UNIT AND ELECTRODES COMB* 1 Package twice daily. OMEPRAZOLE 20 MG CAPSULE,ROXANN* Take 1 capsule by mouth once * ACETAMINOPHEN 325 MG CAPSULE Take by mouth. DASETTA (28) 0.5 MG(7)/* Take 1 tablet by mouth once d * DEXTROAMPHETAMINE-AMPHETAMINE* Take 30 mg by mouth once dina * MELOXICAM 15 MG TABLET Take 1 tablet by mouth once d* ORPHENADRINE CITRATE ER 100 M* Take 1 tablet by mouth twice * GABAPENTIN 300 MG CAPSULE Take 1 capsule by mouth three* Problem List As Of Date: 07/08/2019 (None) Visit Notes: >> Dirk Neal SatJul 08, 2019 11:50 AM Status: Signed Review of Systems Eyes: Negative for blurred vision. Respiratory: Negative for shortness of breath.? Cardiovascular: Negative for chest pain. Negative for leg sw elling. Gastrointestinal: Negative for constipation, diarrhea, nause a?and vomiting. Genitourinary: Negative for dysuria. Skin: Negative for itching. Neurological: Positive for headaches. Negative for dizziness , Positive tingling?and weakness. Endo/Heme/Allergies: Negative for bruising/bleeding easily. Psychiatric/Behavioral: Negative for depression?and suicidal ideas. ROS entered by:Dirk Neal CMA Prescriptions ordered this encounter Disp Refills Start End MELOXICAM 15 MG TABLET 30 t* 2 07/08/2019 10/06/2019 Route: ORAL Sig: Take 1 tablet by mouth once daily. ORPHENADRINE CITRATE ER 100 MG TABLE* 60 t* 2 07/08/2019 Route: ORAL Sig: Take 1 tablet by mouth twice daily. Medications Discontinued During This Encounter orphenadrine ER (NORFLEX) 100 mg tab* 60 t* 0 04/22/201906/21 Route: ORAL Sig: Take 1 tablet by mouth twice daily. Disc: Reason for discontinue is not on file. Disposition: Return in about 3 months (around 10/07/2019). Follow-up and Disposition History Recorded Encounter Status:Closed by ROCIO STEELE MD on 07/08/19 procedure on 2018-07 PROCEDURE HNO ID: [id number] Normal 06-12-2019 [facility] Author: Rocio Steele Blair ([id number]) Service: ? Author Type: Physician Type: Procedures Filed: 06/12/2019 11:21 AM Note Text: Patient Name: Jeimy Morales Date: June 12, 2019 Patient : 1985 Patient Age: [age] year old CC: Patient presents with: EMG: bilateral uppers Low Back Pain Neck Pain Vitals: BP 139/90 Pulse 80 Ht 167.6 cm (5' 6) Wt 59.4 kg (131 lb) BMI 21.14 kg/m? The HANDP completed on 04/22- continued BL hand numbness. I have reviewed the history and physical and examined the pa tient and there are no changes unless noted below: No atrophy of APBs Timeout was performed to verify patient name, , allergies and procedure being performed. Patient is aware of potential risks and benefits of this pro cedure. Patient wishes to proceed. Procedure start time: 1105 Procedure end time: 1130 Electrodiagnostic testing was performed today was significan t for bilateral moderate carpal tunnel. Full report and data will be scanned into the chart. Return in about 4 weeks (around 07/10/2019). ASSESSMENT/PLAN: 1. Pain in both upper extremities - ICD9: 729.5, ICD10: M79. 601, M79.602 - NEEDLE EMG EA EXTREMTY W/PARASPINL AREA COMPLETE - MOTOR AND/SENS 06-02 NRV CNDJ PRECONF ELTRODE LIMB Rocio Steele MD obsolete on 2019-05 OBSOLETE Procedure (SHAR) Normal 06-12-2019 [place] [facility] JEIMY MORALES ([id number]) 1985 [facility] Date Time Provider Department Center 06/12/19 11:00 AM ROCIO STEELE ([id number]) During your visit today, we recorded the following informati on about you: Pulse Blood pressure Weight Height 80/minute 139/90 59.4 kg 1.676 m Dirk Neal CMA 06/12/2019 11:06 AM Signed Review of Systems Eyes: Negative for blurred vision. Respiratory: Negative for shortness of breath.? Cardiovascular: Negative for chest pain. Negative for leg sw elling. Gastrointestinal: Negative for constipation, diarrhea, [place]?and vomiting. Genitourinary: Negative for dysuria. Skin: Negative for itching. Neurological: Positive for headaches. Negative for dizziness , Positive tingling?and Negative weakness. Endo/Heme/Allergies: Negative for bruising/bleeding easily. Psychiatric/Behavioral: Negative for depression?and suicidal ideas. ROS entered by:JOYA Chiang MD 06/12/2019 11:21 AM Signed Patient Name: Jeimy Morales Date: June 12, 2019 Patient : 1985 Patient Age: [age] year old CC: Patient presents with: EMG: bilateral uppers Low Back Pain Neck Pain Vitals: BP 139/90 Pulse 80 Ht 167.6 cm (5' 6) Wt 59.4 kg (131 lb) BMI 21.14 kg/m? The HANDP completed on 04/22- continued BL hand numbness. I have reviewed the history and physical and examined the patient and there are no changes unless noted below: No atrophy of APBs Timeout was performed to verify patient name, , allergies and procedure being performed. Patient is aware of potential risks and benefits of this p rocedure. Patient wishes to proceed. Procedure start time: 1105 Procedure end time: 1130 Electrodiagnostic testing was performed today was signific ant for bilateral moderate carpal tunnel. Full report and data will be scanned into the chart. Return in about 4 weeks (around 07/10/2019). ASSESSMENT/PLAN: 1. Pain in both upper extremities - ICD9: 729.5, ICD10: M79. 601, M79.602 - NEEDLE EMG EA EXTREMTY W/PARASPINL AREA COMPLETE - MOTOR AND/SENS 11-12 NRV CNDJ PRECONF ELTRODE LIMB MD Rocio Abarca MD 06/12/2019 11:03 AM Signed Explanation of EMG and NCV Procedure Nerve conduction studies (NCS) and electromyography (EMG) ar e utilized to evaluate damage sustained to the peripheral nerv ous system. NCS are performed to measure the nerve respons e to electrical stimulation across a given segment. EMG evaluates the passive and active electrical discha rges of the muscle, as specific nerves and roots in nervate muscles of the body. Often times, more than one muscle motor nerve and sensory nerve must be studied to determine the presences of disease. Further, nerves are often tested in a [id number]-murb comparison, as well as, lena tional extremities and are crucial in isolating the area of the spine and/or distal nerve that has been damaged so that the diagnosis and treatment of the patient c an be achieved. Therefore, the muscles and nerves examined were medically necessary. Referring Provider: ROCIO STEELE [[id number]] Allergies As of Date: 06/12/2019 Noted Allergy Reaction BACTRIM (SULFAMETHOXAZOLE-TRIMETH*08/23/2016 4 - Hives LATEX 06/26/2017 2 - Rash SULFA (SULFONAMIDE ANTIBIOTICS) 08/23/2016 4 - Hives Date Reviewed: 06/12/2019 Reviewed by: Rocio Steele - Fully Assessed Reason for Visit: EMG [2011] Cmt: bilateral uppers Low Back Pain [126] Neck Pain [135] Reason For Visit History Recorded Primary Visit Diagnosis:Pain in both upper extremities [M79. 601, M79.602] Order(s):NEEDLE EMG EA EXTREMTY W/PARASPINL AREA COMPLETE [[id number]] Order #: [id number] MOTOR AND/SENS 11-12 NRV CNDJ PRECONF ELTRODE LIMB [[id number] ] Order #: [id number] Prescriptions as of 06/12/2019 Sig: BENZOCAINE-MENTHOL 15 MG-2.6 * Take 1 Lozenge by mouth every * TENS UNIT AND ELECTRODES COMB* 1 Package twice daily. OMEPRAZOLE 20 MG CAPSULE,ROXANN* Take 1 capsule by mouth once * ACETAMINOPHEN 325 MG CAPSULE Take by mouth. DASETTA 7 (28) 0.5 MG(7)/* Take 1 tablet by mouth once d * DEXTROAMPHETAMINE-AMPHETAMINE* Take 30 mg by mouth once dina * GABAPENTIN 300 MG CAPSULE Take 1 capsule by mouth three* Problem List As Of Date: 06/12/2019 (None) Other instructions from your clinician: Explanation of EMG and NCV Procedure Nerve conduction studies (NCS) and electromyography (EMG) ar e utilized to evaluate damage sustained to the peripheral nervous system. NCS are performed to measure the nerve response to electrical stimul ation across a given segment. EMG evaluates the passive and active electric al discharges of the muscle, as specific nerves and roots innervate muscle s of the body. Often times, more than one muscle motor nerve and sensory ne rve must be studied to determine the presences of disease. Further, nerv es are often tested in a [id number] comparison, as well as, additional extremities and are crucial in isolating the area of the spine and/or di stal nerve that has been damaged so that the diagnosis and treatment of the patient can be achieved. Therefore, the muscles and nerves examined were medically necessary. Visit Notes: >> Dirk Neal Fri Jun 12, 2019 10:56 AM Status: Signed Review of Systems Eyes: Negative for blurred vision. Respiratory: Negative for shortness of breath.? Cardiovascular: Negative for chest pain. Negative for leg sw elling. Gastrointestinal: Negative for constipation, diarrhea, nause a?and vomiting. Genitourinary: Negative for dysuria. Skin: Negative for itching. Neurological: Positive for headaches. Negative for dizziness , Positive tingling?and Negative weakness. Endo/Heme/Allergies: Negative for bruising/bleeding easily. Psychiatric/Behavioral: Negative for depression?and suicidal ideas. ROS entered by:Dirk Neal CMA Disposition: Return in about 4 weeks (around 07/10/2019). Follow-up and Disposition History Recorded Encounter Status:Closed by ROCIO STEELE MD on 06/12/19 cnco on 2019-05-27 CNCO Letter Text Normal 05-27-2019 [facility] ([id number]) xr lumbar 4v ap/lat/ flex/ext on 2019-04-22 XR LUMBAR 4V * * *Final Report* * * Normal [facility] AP/LAT/ FLEX/EXT DATE OF EXAM: Apr 22 2019 12:[address] [place] [address] System AWX 5231 - XR LUMBAR 4V AP/LAT/ FLEX/EXT / 4422 ([id number]) PROCEDURE REASON: Acute left-sided low back pain with left-s ided sciatica * * * * Physician Interpretation * * * * EXAM TITLE: XR LUMBAR 4V AP/LAT/ FLEX/EXT DATE: 04/22/2019 INDICATION: Low back pain secondary to a fall COMPARISON: None. FINDINGS: There is no fracture or dislocation. Vertebral ali gnment is normal. Alignment is maintained at flexion and extension. Sa croiliac joints are symmetric. Soft tissues appear normal. IMPRESSION: Within normal limits. Lens Block Gauger: PSCB Transcribe Date/Time: Apr 23 2019 1:22P Dictated by : MARIA GUADALUPE ABRAHAM MD This examination was interpreted and the report reviewed and electronically signed by: MARIA GUADALUPE ABRAHAM MD on Apr 23 2019 1:24PM EST urinalysis on 10-30 Bilirubin, Urine Negative Negative Normal 10-30-2018 [facility] ([id number]) Comment: Performed By: #### CBC, CMP, LIPA, HCGED #### [facility] [address] Clarity Nom (U) Clear Clear Normal 10-30-2018 [facility] ([id number]) Comment: Performed By: #### CBC, CMP, LIPA, HCGED #### [facility] [address] Color Nom (U) Yellow Yellow Normal 10-30-2018 [facility] ([id number]) Comment: Performed By: #### CBC, CMP, LIPA, HCGED #### [facility] [address] Glucose Ql (U) Negative Negative Normal 10-30-2018 [facility] ([id number]) Comment: Performed By: #### CBC, CMP, LIPA, HCGED #### [facility] [address] Hemoglobin/Blood,Ur Negative Negative Normal 10-30-2018 [facility] ([id number]) Comment: Performed By: #### CBC, CMP, LIPA, HCGED #### [facility] [address] [place], [place] [id number] Ketones Ql (U) Negative Negative Normal 10-30-2018 [facility] ([id number]) Comment: Performed By: #### CBC, CMP, LIPA, HCGED #### [facility] [address] Leukest Negative Negative Normal 10-30-2018 [facility] ([id number]) Comment: Performed By: #### CBC, CMP, LIPA, HCGED #### [facility] [address] Nitrite Ql (U) Negative Negative Normal 10-30-2018 [facility] ([id number]) Comment: Performed By: #### CBC, CMP, LIPA, HCGED #### [facility] [address] [place] [address] pH (Bld) 6.5 5.0-8.0 Normal 10-30-2018 [facility]acquel[facility] ([id number]) Comment: Performed By: #### CBC, CMP, LIPA, HCGED #### [facility] [address] [place] [address] Protein mass conc (U) Negative Negative mg/dL Normal 10-31-19 19 [facility] ([id number]) Comment: Performed By: #### CBC, CMP, LIPA, HCGED #### [facility] [address] [place] [address] Specific [place], Ur <=1.005 1.001-1.029 Normal [facility] ([id number]) Comment: Performed By: #### CBC, CMP, LIPA, HCGED #### [facility] [address] [place] [address] Urobilinogen Qn (U) 0.2 0.2-1.0 Normal 10-30-2018 [facility] ([id number]) Comment: Performed By: #### CBC, CMP, LIPA, HCGED #### [facility] [address] [place] [address] lipase on 2018-10-20 1 Lipase enzyme act/vol 17 16-61 U/L Normal 10-31-[address] [place] [address] ([id number]) Comment: Performed By: #### CBC, CMP, LIPA, HCGED #### [facility] [address] [place] [address] ed prov note on 201 03-25-11 Protein mass HNO ID: [id number] Normal 10-31-19 [facility] Author: Abebe Rivera MD ([id number]) Service: ? Author Type: Physician Type: ED Provider Notes Filed: 10/30/2018 12:28 AM Note Text: ED Provider Note Patient Name: Jeimy Morales SERVICE DATE: 10/29/18 History Patient presents with: Abdominal Pain: for the past 5 days Nausea Patient complains of epigastric pain that has migrated to [facility] over the past five days; she states she has been anorexic and nauseat ed today; she has had chills but no fever. She was seen at [facility] and had an US RUQ and lab that were normal. PAST MEDICAL HISTORY Diagnosis Date - ADHD (attention deficit hyperactivity disorder) - Post depression - Psychiatric disorder PAST SURGICAL HISTORY Procedure Laterality Date - REMOVAL OF SKIN LESION 1992 susan removed no complication FAMILY HISTORY Problem Relation Age of Onset - Hypertension Mother - Asthma Mother - Hypertension Father - Cancer Father lung - other (heart disease) Father - other (blood clots) Father Social History Tobacco Use - Smoking status: Current Some Day Smoker Packs/day: 0.50 Years: 10.00 Pack years: 5.00 Types: Cigarettes - Smokeless tobacco: Never Used Substance and Sexual Activity - Alcohol use: Yes Comment: socially - Drug use: No - Sexual activity: Yes ALLERGIES Allergen Reactions - Bactrim [Sulfametho* Hives - Latex Rash - Sulfa (Sulfonamide * Hives Review of Systems Constitutional: Negative. HENT: Negative. Eyes: Negative. Respiratory: Negative. Cardiovascular: Negative. Gastrointestinal: Positive for abdominal pain and nausea. Endocrine: Negative. Genitourinary: Negative. Musculoskeletal: Negative. Skin: Negative. Allergic/Immunologic: Negative. Neurological: Negative. Hematological: Negative. Psychiatric/Behavioral: Negative. Physical Exam BP 149/86 Pulse 80 Temp (Src) 98.4 (Oral) Resp 18 Wt 125 lb (56.7kg) LMP 10/20/2018 O2 Therapy: Room Air Physical Exam Constitutional: She is oriented to person, place, and time. She appears well-developed and well-nourished. HENT: Head: Normocephalic. Eyes: EOM are normal. Cardiovascular: Normal rate, regular rhythm and normal heart sounds. Pulmonary/Chest: Effort normal and breath sounds normal. Abdominal: Normal appearance and bowel sounds are normal. e exhibits no distension and no mass. There is tenderness. There is no eliceo ound and no guarding. Some tenderness RLQ; minimal tenderness RUQ Musculoskeletal: Normal range of motion. Neurological: She is alert and oriented to person, place, an d time. Skin: Skin is warm and dry. Capillary refill takes less than 2 seconds. Psychiatric: She has a normal mood and affect. Her behavior is normal. Judgment and thought content normal. Nursing note and vitals reviewed. Diagnostic Testing ED Labs Ordered and Reviewed - No data to display .. Labs Reviewed COMP METABOLIC PANEL - Abnormal; Notable for the following c omponents: Result Value Potassium 3.5 (*) All other components within normal limits LIPASE BLD BETA HCG, QUANTITATIVE FOR ED CBC URINALYSIS ..CT ABD/PEL W IVCON Final Result IMPRESSION: 1. Paucity of formed stool in the left colon. Questionable w all thickening, possibly colitis, although this could be artifac t of nondistended bowel. Clinical correlation needed. 2. Nonspecific heterogeneous appearance to the inferior righ t lobe of the liver. Also 1 cm hypodense nodule in the superior right lobe. Clinical follow-up suggested, possibly with ultrasound. 3. No bowel distention, free fluid, free air, or other acute changes. Lens Block Gauger: SHANA Transcribe Date/Time: Oct 29 2018 11:05P Dictated by : SANIYA BUTCHER MD This examination was interpreted and the report reviewed and electronically signed by: SANIYA BUTCHER MD on Oct 29 2018 11:20PM EST Procedures ED Course / Clinical Impression Clinical Impressions as of Oct 308 Right lower quadrant abdominal pain Liver nodule MDM / Disposition / Plan Patient presents with 5 days history of RUQ pain, now moving into RLQ, some anorexia; CT shows a normal appendix; she also had 1 cm hyppodense nodule in right superior lobe liver, needs follow-up, but parag hughes did just have RUQ US at [facility]. She has no evidence for appendicitis , no evidence for cholecystitis; questionable hypodense nodule; I believe patient could have gastritis or possible PUD. Will have patient follow-up with GI project consultant, Dr Sesay, for liver nodule and above; will send home on [facility]. MDM SIGNATURE: MD Abebe Garcia MD 10/30/18 0028 ed note on ED NOTE HNO ID: [id number] Normal 10-30-2018 [facility] ([id number]) Author: Keli (Rn) LINDA Conte Service: ? Author Type: Registered Nurse Type: ED Notes Filed: 10/30/2018 12:47 AM Note Text: pt given dc instructions and follow up care she verbalized u nderstanding. ED NOTE HNO ID: [id number] Normal 10-30-2018 [facility] ([id number]) Author: Keli DiazRn) LIDNA Conte Service: ? Author Type: Registered Nurse Type: ED Notes Filed: 10/30/2018 12:15 AM Note Text: dr rivera in room to talk with pt ED NOTE HNO ID: [id number] Normal 10-30-2018 [facility] ([id number]) Author: Keli DiazRn) LINDA Conte Service: ? Author Type: Registered Nurse Type: ED Notes Filed: 10/29/2018 11:02 PM Note Text: Patient returned to the Emergency Department.from CT ED NOTE HNO ID: [id number] [place] 10-30-2018 [facility] ([id number]) Author: Keli DiazRn) LINDA Conte Service: ? Author Type: Registered Nurse Type: ED Notes Filed: 10/29/2018 11:02 PM Note Text: Clean catch urine specimen obtained and sent. ED NOTE HNO ID: [id number] [place] 10-30-2018 [facility] ([id number]) Author: Keli DiazRn) LINDA Conte Service: ? Author Type: Registered Nurse Type: ED Notes Filed: 10/29/2018 10:50 PM Note Text: pt ambulated to restroom to get urine sample ED NOTE HNO ID: [id number] [place] 10-30-2018 [facility] ([id number]) Author: Daryl DiazRnCynthia Chacon RN Service: Nursing Author Type: Registered Nurse Type: ED Notes Filed: 10/29/2018 10:31 PM Note Text: Pt reports o Ed c/o right side abd pain and nuasea for the p ast 5 days, denies vomiting. Pt seen at [facility] on Saturday, US normal, pe r pt. Pt reports pain moved to lower side today. Had a BM yesterday, mentioned that she feels like she has to have a BM but not able to do it. P t alert and oriented, denies any other discomfort. ED NOTE HNO ID: [id number] [place] 10-30-2018 [facility] ([id number]) Author: Keli DiazRn) LINDA Conte Service: ? Author Type: Registered Nurse Type: ED Notes Filed: 10/29/2018 11:03 PM Note Text: dr rivera in room to talk with pt ct abd/pel w ivcon on 2018-10-30 CT ABD/PEL W * * *Final Report* * * Normal 10-20 [facility] IVCON DATE OF EXAM: Oct 29 2018 11:03PM ([id number]) [facility] 0530 - CT ABD/PEL W IVCON / PROCEDURE REASON: Peritonitis or perforation suspected * * * * Physician Interpretation * * * * EXAMINATION: CT ABDOMEN AND PELVIS WITH IV CONTRAST, 019 CLINICAL HISTORY: Peritonitis or perforation suspected Contrast and Creatinine->Wait for labs acute illness Peritonitis or perforation suspected TECHNIQUE: CT of the abdomen and pelvis was performed using standard technique, scanning from just above the dome of the diaphrag m to the symphysis pubis. MQ: CTAP_3 Contrast: IV: 100 ml of Omnipaque 300 Oral: None CT Radiation dose: Integrated Dose-length product (DLP) for this visit = 233 mGy*cm. CT Dose Reduction Employed: Automated exposure control (AEC) COMPARISON: None available. RESULT: Liver: Normal size, with Matthias lobe appearance to the right lobe. Nonspecific heterogeneity to the inferior right lobe, withou t discrete mass. 1.0 cm hypodense nodule superior right lobe near the d ome laterally, image 2:18. Biliary: Normal-appearing gallbladder. No calcified gallston es. No dilated bile ducts. Spleen: Normal size and appearance. Pancreas: Normal pancreas. Adrenals: Normal bilateral adrenal glands. Kidneys: Normal bilateral kidneys. GI tract: Paucity of formed stool in the left colon with que stion mild wall thickening, possibly artifact of nondistention. No dist ended bowel. Normal appendix inferior to the cecum. Lymph nodes: No abdominal or pelvic lymphadenopathy. Mesentery/Peritoneum: No ascites or mass. Retroperitoneum: No mass. Vasculature: Aorta normal caliber. The celiac axis and SMA a re patent. The portal vein and branches, splenic vein, SMV, and hepatic veins are patent. Pelvis: Bladder nondistended. Normal size anteverted uterus. 2.0 cm left adnexal cyst or dominant follicle. Evaluation of right adnexa limited by adjacent nonopacified bowel. No free fluid or foc al fluid collection. Bones/Soft Tissues: Within normal limits. No acute changes. Lower thorax: Within normal limits. No acute changes. IMPRESSION: 1. Paucity of formed stool in the left colon. Questionable w all thickening, possibly colitis, although this could be artifac t of nondistended bowel. Clinical correlation needed. 2. Nonspecific heterogeneous appearance to the inferior righ t lobe of the liver. Also 1 cm hypodense nodule in the superior right lobe. Clinical follow-up suggested, possibly with ultrasound. 3. No bowel distention, free fluid, free air, or other acute changes. Lens Block Gauger: PSCB Transcribe Date/Time: Oct 29 2018 11:05P Dictated by : SANIYA BUTCHER MD This examination was interpreted and the report reviewed and electronically signed by: SANIYA BUTCHER MD on Oct 29 2018 11:20PM EST [id number] comp metabolic panel on 2018-10-30 Albumin mass conc 4.5 3.9-4.9 g/dL Normal 10-30-2018 [facility] ([id number]) Comment: Performed By: #### CBC, CMP, LIPA, HCGED #### [facility] [address] [facility] [phone] ALP enzyme act/vol 55 34-123 U/L Normal 10-30-2018 [facility] ([id number]) Comment: Performed By: #### CBC, CMP, LIPA, HCGED #### [facility] [address] [facility] [phone] ALT enzyme act/vol 18 7-38 U/L Normal 10-30-2018 [facility] ([id number]) Comment: Performed By: #### CBC, CMP, LIPA, HCGED #### [facility] [address] [facility] [phone] Anion gap molar conc 11 9-18 mmol/L Normal 9 [facility] ([id number]) Comment: Performed By: #### CBC, CMP, LIPA, HCGED #### [facility] [address] [facility] [phone] AST enzyme act/vol 17 13-35 U/L Normal 10-30-2018 [facility] (14950) Comment: Performed By: #### CBC, CMP, LIPA, HCGED #### [facility] [address] [facility] [phone] Bilirubin mass conc 0.3 0.2-1.3 mg/dL Normal 10-30-2018 [facility] (36557) Comment: Performed By: #### CBC, CMP, LIPA, HCGED #### [facility] [address] [place] [phone] Calcium mass conc 9.8 8.5-10.2 mg/dL Normal 10-30-2018 [facility] (07452) Comment: Performed By: #### CBC, CMP, LIPA, HCGED #### [facility] [address] [place] [address] Chloride molar conc 99 97-105 mmol/L Normal 10-30-2018 [facility] (50094) Comment: Performed By: #### CBC, CMP, LIPA, HCGED #### [facility] [address] [place] [phone] CO2 molar conc 28 22-30 mmol/L Normal 10-30-2018 [facility] (87602) Comment: Performed By: #### CBC, CMP, LIPA, HCGED #### [facility] [address] [place] [phone] Creatinine mass conc 0.71 0.58-0.96 mg/dL Normal [address] [place] [address] ([address]606) Comment: Performed By: #### CBC, CMP, LIPA, HCGED #### [facility] [address] [place], [place] [phone] eGFR- Amer. >60 Normal 10-30-2018 [facility] ([id number]) Comment: Performed By: #### CBC, CMP, LIPA, HCGED #### [facility] [address] [place] [phone] GFR/1.73 sq M predicted >60 mL/min/{1.73_m2} Normal 10-30-2018 [facility] among non-blacks MDRD (12659) vol rate/area (S/P/Bld) Comment: Result Comment: eGFR (Estima karen GFR) Units of measure: mL/min/1.73 meters squared eGFR is derived from the ree xpressed MDRD Study equation using the following parameters: serum creatinine, age, gender and race. The creatinine assay has been calibrated to be traceable to IDMS. An eGFR <60 mL/min/1.73m2 fo r >3 months is consistent with chronic kidney disease. Refer to KDOQI guidelines for clinical interpretation. In patients with unstable re nal function, e.g. those with acute kidney injury, the eGFR may not accurately reflect actual GFR. Performed By: #### CBC, CMP, LIPA, HCGED #### [facility] 1000 [facility] [phone] Glucose mass conc 99 74-99 mg/dL Normal 10-30-2018 [facility] (37130) Comment: Result Comment: The [place] Diabetes Association (ADA) provides guidance for cutoff values for fasting glucose and random glucose. The ADA defines fasting as no caloric intake for at least 8 hours. Fas ting plasma glucose results between 100 to 125 mg/dL indicate increased risk for diabetes (prediabetes). Fasting plasma glucose resul ts greater than or equal to 126 mg/dL meet the criteria for diagnosis of diabetes. In the absence of unequivocal hyperglycemia, results should be confirmed by repeat testing. In a patient with classic s ymptoms of hyperglycemia or hyperglycemic crisis, random plasma glucose results greater than or equal to 200 mg/dL meet the criteria for diagnosis of diabetes. Reference: Standards of [facility] Care in Diabetes 2016, [place] [employer]. Diabetes Care. 2016.39(Suppl 1). Performed By: #### CBC, CMP, LIPA, HCGED #### [facility] 1000 [facility] [phone] Potassium molar conc 3.5 3.7-5.1 mmol/L Low 9 [facility] ([id number]) Comment: Performed By: #### CBC, CMP, LIPA, HCGED #### [facility] [address] [facility] [phone] Protein mass conc 7.4 6.3-8.0 g/dL Normal 10-30-2018 [facility] ([id number]) Comment: Performed By: #### CBC, CMP, LIPA, HCGED #### [facility] [address] [facility] [phone] Sodium molar conc 138 136-144 mmol/L Normal 10-30-2018 [facility] (66204) Comment: Performed By: #### CBC, CMP, LIPA, HCGED #### [facility] [address] [facility] [phone] Urea nitrogen mass conc 15 7-21 mg/dL Normal 2018 [facility] (96105) Comment: Performed By: #### CBC, CMP, LIPA, HCGED #### [facility] [address] [place] [phone] cbc on 2018-10-30 Erythrocyte distribution 13.3 11.5-15.0 % Normal 10-30 [facility] (99720) width Ratio (RBC) Comment: Performed By: #### CBC, CMP, LIPA, HCGED #### [facility] [address] [place], [place] [phone] Hematocrit Volume Fraction 42.5 36.0-46.0 % Normal [facility] (09820) (Bld) Comment: Performed By: #### CBC, CMP, LIPA, HCGED #### [facility] [address] [place] [address] Hemoglobin mass conc 13.6 11.5-15.5 g/dL Normal 9 [facility] ([facility]) (72996) Comment: Performed By: #### CBC, CMP, LIPA, HCGED #### [facility] [address] [place], [place] [address] MCH Entitic mass (RBC) 30.1 26.0-34.0 pG Normal 019 [facility] (30753) Comment: Performed By: #### CBC, CMP, LIPA, HCGED #### [facility] [address] [place], [place] [address] MCHC mass conc (RBC) 32.0 30.5-36.0 g/dL Normal 9 [facility] (48504) Comment: Performed By: #### CBC, CMP, LIPA, HCGED #### [facility] [address] [place], [place] [address] MCV Entitic volume (RBC) 94.0 80.0-100.0 fL Normal 10-20 [facility] (35359) Comment: Performed By: #### CBC, CMP, LIPA, HCGED #### [facility] [address] [place], [place] [address] Platelet mean volume 9.0 9.0-12.7 fL Normal 9 [facility] (47803) Entitic volume (Bld) Comment: Performed By: #### CBC, CMP, LIPA, HCGED #### [facility] 1000 [facility] [phone] Platelets #/vol (Bld) 285 150-400 k/uL Normal 10-31-19 19 [facility] (21797) Comment: Performed By: #### CBC, CMP, LIPA, HCGED #### [facility] [address] [place] [phone] RBC #/vol (Bld) 4.52 3.90-5.20 m/uL Normal 10-30-2018 [facility] (56203) Comment: Performed By: #### CBC, CMP, LIPA, HCGED #### [facility] [address] [place] [address] WBC #/vol (Bld) 6.60 3.70-11.00 k/uL Normal 10-30-2018 [facility] (20584) Comment: Performed By: #### CBC, CMP, LIPA, HCGED #### [facility] [address] [place] [phone] beta hcg quant, ed on 2018-10-30 Beta HCG Quant, ED <0.1 <5.0 Normal 10-30-2018 [facility] ([id number]) Comment: Result Comment: QUANTITATIVE HCG NORMAL RANGES Weeks of Gestation (Weeks Si nce LMP) 3 Weeks (5.8-71.2 mIU/mL) 4 Weeks (9.5-750 mIU/mL) 5 Weeks (217-7138 mIU/mL) 6 Weeks (158-43938 mIU/mL) 7 Weeks (3697-120519 mIU/mL) 8 Weeks (96176-624737 mIU/mL ) 9 Weeks (85669-992355 mIU/mL ) 10 Weeks (27915-382829 mIU/m L) 12 Weeks (46686-146693 mIU/m L) Referenced to 4th IS of NIBS C Performed By: #### CBC, CMP, LIPA, HCGED #### [facility] 1000 [facility] [phone] allied health on 07-11-10 [facility] HNO ID: [id number] Normal 04-11-[address] [place] [address] Author: REGINA Toro (Ct) ([id number]) Service: Radiology Author Type: Clinical [employer] Lieutenant Type: Allied Health Filed: 10/29/2018 11:05 PM Note Text: Radiology Service Progress Note DATE OF SERVICE: October 29, 2018 TIME: 11:04 PM PATIENT IDENTITY VERIFICATION COMPLETED USING TWO (2) METHOD S: Patient confirmed name verbally and ID band matches.. PATIENT GENDER DATA: Female. status: : No status: NO. PATIENT RELEVANT IMPLANT DATA REVIEWED: Not Applicable ALLERGIES: Reviewed and unchanged CONTRAST ALLERGY: NO. EXAM: CT -CONTRAST INDUCED NEPHROPATHY RISK FACTORS: Not applicabl e CREATININE: Creatinine Date Value Ref Range Status 06/25/2016 0.52 0.51 - 0.95 mg/dL Final 06/03/2014 1.02 (H) 0.51 - 0.95 mg/dL Final 06/02/2014 1.23 (H) 0.51 - 0.95 mg/dL Final P.O.C.T. RESULTS: POC done: Yes, See Lab Tab October 29, 2018 TREATMENT: N/A PERIPHERAL IV DATA: Inpatient - refer to LDA documentation RADIOLOGY DEPARTMENT: CT; Exam(s) Completed: Abdomen/Pelvis SIGNATURE: REGINA Toro PATIENT NAME: Jeimy pace DATE: October 29, 2018 TIME: 11:04 PM Vital Signs Vital Sign Description Value / Unit Date Location The following section is limited to 5 en tries per type and includes entries from the following time range: [id number] - [id number] 8. Body Temperature 99 [degF] 04-08-2020 [facility] ([id number]) Body weight 65.41 kg 04-08-2020 [facility] ([id number]) BP Diastolic 90 mm[Hg] 04-08-2020 [facility] ([id number]) BP Systolic 150 mm[Hg] 04-08-2020 [facility] ([id number]) Height 167.6 cm 04-08-2020 [facility] ([id number]) Pulse (Heart Rate) 96 /min 04-08-2020 [facility] ([id number]) Pulse Oximetry 96 % 04-08-2020 [facility] ([id number]) Encounters Date Type Reason Provider Location 10-30-2018 - Emergency department [facility] 10-30-2018 patient visit [facility] ([id number]) 03-24-2020 Follow-up encounter Chai (Technical Associate) [facility] Comment: ED Follow Up 04-22-2020 - Letter encounter Micki Dias ity 04-22-2020 [facility] 04-08-2020 - Patient encounter Lumbar radiculopathy Neeta Goins [facility] 04-08-2020 procedure (Arch[employer]) [facility] Comment: Lumbar radiculopathy (Primar y Dx); Elevated blood pressure read ing without diagnosis of hypertension; Screening for lipid disorder s; Cigarette smoker 03-24-2020 - Patient encounter Chai (Technical Associate) [facility] 03-24-2020 procedure Ramirez 04-08-2020 - Subsequent Lumbar radiculopathy [facility] 04-08-2020 hospital visit by [facility] physician Comment: Lumbar radiculopathy [M54.16 ] 04-28-2020 - 04-28-2020 Telephone encounter Micki Logan [facility] Comment: Results Missed Appointment (3rd no s how ) 04-22-2020 - 04-22-2020 Telephone encounter Micki Logan [facility] Comment: Missed Appointment (Second m issed appointment) Procedures Procedure Name Date Provider Location [place] spine lumbosacral 2/3 04-08-2020 Neeta Patino ([employer]) [facility] ([id number]) views [place] Plan of Treatment Plan Description Date Location HPV TESTING HPV TESTING 06-21-2021 - [facility] 06-21-2021 ([id number]) PAP TESTING PAP TESTING 06-21-2021 - [facility] 06-21-2021 ([id number]) INFLUENZA (#1) INFLUENZA (#1) 2020 - [facility] 03-22-2020 ([id number]) DTAP,TDAP,TD (1 - DTAP,TDAP,TD (1 - Tdap) 2002 - [facility] Tdap) 2002 ([id number]) HEPATITIS C SCREENING HEPATITIS C SCREENING 2001 - [facility] 2001 ([id number]) HIV SCREENING HIV SCREENING 2001 - [facility] 2001 ([id number]) CBC CBC Lab Routine Elevated 04-08-2021 [facility] blood pressure reading ([id number]) without diagnosis of hypertension 1 Occurrences starting 04/08/2020 until 04/08/2021 Comment: 1 Occurrences starting 04/08 until 04/08/2021 COMP METABOLIC PANEL COMP METABOLIC PANEL Lab 04-08-2021 [facility] ([id number]) Routine Elevated blood pressure reading without diagnosis of hypertension 1 Occurrences starting 04/08/2020 until 04/08/2021 Comment: 1 Occurrences starting 04/08 until 04/08/2021 LIPID PANEL BASIC LIPID PANEL BASIC Lab Routine 04-08-2021 [facility] ([id number]) Screening for lipid disorders 1 Occurrences starting 04/08/2020 until 04/08/2021 Comment: 1 Occurrences starting 04/08 until 04/08/2021 TSH BLD TSH BLD Lab Routine Elevated blood 04-08-2021 [facility] ([id number]) pressure reading without diagnosis of hypertension 1 Occurrences starting 04/08/2020 until 04/08/2021 Comment: 1 Occurrences starting 04/08 until 04/08/2021 no information [facility] ([id number]) Payers Payer Name Policy Number Location [employer] [id number] [facility] (44 195) The following information is from the original human readable contentNo Payer Records FoundNo Payer Records FoundNo Payer Records FoundNo Payer Records FoundNo Payer Records FoundNo Payer Records FoundNo Payer Records Found Social History Type Social History Date Location Description Tobacco smoking status Current some day smoker 04-08-2020 - [facility] 04-08-2020 ([id number]) History of tobacco use Cigarette Smoker [facility] ([id number]) Cigarettes smoked 04-08-2020 - [facility] current (pack per day) 04-08-2020 ([id number]) - Reported Tobacco use and Never used 04-08-2020 - [facility] exposure 04-08-2020 ([id number]) Alcohol intake Current drinker of 04-08-2020 [facility] alcohol (finding) 04-08-2020 ([id number]) Alcohol Comment socially 09-26-2017 - [facility] 09-26-2017 ([id number]) Sex Assigned At Not on file [facility] ([id number]) Exposure to SARS-CoV-2 Not sure [facility] (event) ([id number]) The following information is from the original human readable contentNo Social History Records FoundNo Social History Records FoundNo Social History Records FoundNo Social History Records FoundNo Social History Records FoundNo Social History Records FoundNo Social History Records Found Advance Directives No Advanced Directives Records Found Documents on File Type Date Recorded 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 Advance Directive(s) 09/26/2017 4:04 PM Advance Directive(s) 10/29/2018 11:10 PM Advance Directive(s) 04/12/2019 9:47 PM Advance Directive(s) 04/20/2019 11:17 PM Advance Directive(s) 11/09/2019 7:11 PM Summary Purpose Family History No Family History Records FoundNo Family History Records FoundNo Family History Records FoundNo Family History Records Found Assessments Diagnosis Lumbar radiculopathy Thoracic or lumbosacral neuritis or radi culitis, unspecified Diagnosis Lumbar radiculopathy - Primary Thoracic or lumbosacral neuritis or radi culitis, unspecified Elevated blood pressure reading without diagnosis of hypertension Screening for lipid disorders Cigarette smoker Tobacco use disorder Instructions Patient InstructionsNeeta Gonzalez (Architecture [employer]ician [employer] Agriculture Teacher), [employer] - 04/08/2020 4:20 PM EDT Low Back Pain Low back pain is pain and stiffness in the small of the back. With low back pain, pain may also occur in the buttocks or legs. Simple exercises and good posture can help most cases of low back pain. [place] few cases, medications, physical therapy or surgery may be needed. The spine is made up of ring-like bones called vertebrae. The vertebrae are stacked on top of each other and form a strong column that keeps the head and body standing up. Between each vertebra is a jelly-like disk that has a tough outside edge. These disks are like cushions between the vertebrae. Muscles and tissues hold vertebrae in the right place. The lower back consists of five vertebrae. These vertebrae make up the inward curve of the lower back. What causes low back pain? The most common cause of low back pain is overstretched or injured muscles that support the lower back. Muscles and connective tissues can become hurt from lifting or carrying heavy objects incorrectly. Muscles in the back can also become weak from a lack of exercise. Exercises to make the muscles in the back and abdomen strong can lessen pain. Low back pain can also be caused by: Bad posture Standing or sitting in the same place for a long time Slipped disk; a slipped disk is when a disk between vertebrae bulges past the bones and presses against a nerve. Being very overweight Osteoporosis (thinning of bone) Osteoarthritis, which is the break down of tissues or bones of the joint Fibromyalgia, which is an illness that causes achy, tender muscles; the person with fibromyalgia mayalso sleep poorly, have headaches, and often feel tired Serious illnesses such as cancer, infection, or another illness can cause low back pain, but this israre How is low back pain treated? Many times, low back pain can be helped by exercise and keeping good posture while sitting, standing, and sleeping. You can also learn ways to protect your back when bending, lifting, and exercising. People who are overweight might lessen low back pain by losing weight. What can I do if I have low back pain? 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 While working in the kitchen, open the cabinet under the sink and rest your foot on the inside of the cabinet. Change feet every 5 to 15 minutes. Keep good posture by standing with your head up, shoulders straight, chest forward, weight balanced evenly on both feet, and hips tucked in. Sitting Make sure your chair has good lower back support. The back of the chair should be curved to give support where the small of the back meets the chair. Keep your knees a little higher than your hips by using a foot rest or stool. Don't twist at the waist while sitting. Instead, turn your whole body. Sleeping Sleep on your side with your knees bent. You can also put a pillow between your knees. Try not to sleep on your stomach. If you sleep on your back, put pillows under your knees and a small pillow under the small of your back. Lifting objects Before you lift a heavy object, get a firm footing. Bend your knees to lower yourself to the level of the object, keeping your lower back straight. Tighten your stomach muscles and lift the object using your leg muscles. Don't jerk the object up to your body. Never bend from the waist with your knees straight. If you are lifting an object from a table, slide it to the edge of the table so that you can hold itclose to your body. Bend your knees so that you are close to the object. Use your legs to lift the object and come to a standing position. Avoid lifting heavy objects above waist level. Hold packages close to your body with your arms bent. References National [place] for Neurological Disorders and Stroke. Low Back Pain Fact Sheet. Accessed 11/11/2012 [employer]. Low Back Pain. Accessed 11/11/2012 [employer]. Back Pain Facts & Statistics. Accessed 11/11/2012 Tip SD, Jaja S, Ana RS. Back pain made simple: an approach based on principles and evidence.[facility] Clin J Med. 2009;76:393?399 ? Copyright 5315-2238 [facility]. All rights reserved This information is provided by the [facility] and is not intended to replace the medical advice of your doctor or health care provider. Please consult your health care provider for advice about a specific medical condition. For additional health information, please contact the Center for Consumer Health Information at the [facility] [phone] CESSATION Stopping smoking is the most important thing you can do to protect your current and future health, as well as that of your family. It is the most potent risk factor for the future development of coronary artery disease and heart attacks. Smoking is both an addiction and a learned behavior. The nicotine withdrawal takes anywhere from 2-4weeks and results in symptoms such as irritability, fatigue, insomnia, coughing, dizziness, poor concentration, hunger and cigarette cravings. After the nicotine withdrawal period, the learned linkage between certain acts or situations and cigarette use remain. Strategies to deal with these must be developed along with new behaviors to ensure successful smoking cessation. STRATEGIES TOWARD SMOKING CESSATION - Make a list of the reasons why you want to quit, plus the benefits to be gained, and compare them to the reasons why you should continue to smoke. - Pick a specific quit date. - If you are interested in using nicotine patches or gum to assist with the nicotine withdrawal, letthe staff know. - Inform friends, family, and co-workers that you are quitting and when your quit date is. Ask for their understanding and support. - Prepare your environment by removing all cigarettes prior to your quit date. - Prior to your quit date, avoid smoking in places where you spend a lot of time (such as the house,work, car). - From previous quit attempts, identify what helped you to stop smoking. - From previous quit attempts, identify what triggered relapse. How can you avoid that again? - What things (situations, emotions) do you anticipate will be most challenging, especially in the first few weeks, to your quitting effort? - What can you do to address these challenges? - Avoid (or limit) alcohol consumption during the quitting process. - If your spouse or close coworker currently smoke, consider quitting together or at the very least,develop specific plans to maintain your cigarette abstinence while in the home or at work. - Take each day, each hour, each craving, one at a time. Every step or action you take toward smoking cessation is a success. The only failure is the failure to try. - The health of you and your family, is worth the effort. STOP SMOKING CHECK LIST Preparing to Quit: ___ Make a personal pact with yourself to quit. ___ Pick a date for quitting completely. (My date to quit is ____.) ___ Write down on a card the three most important reasons for quitting. Carry the card with you fromnow on. Look at it several times a day. ___ Prior to quitting, eliminate smoking completely in 2 or 3 of your high risk situations. ___ Reduce consumption to one pack per day or less. ___ Change to a less desirable brand of cigarettes. ___ Discard your test manager. Use matches. Carry your cigarettes in a different place. ___ Spend a little time each day picturing in your mind stressful events occurring in the future andyou not smoking. Actual Quitting: The First Two Weeks ___ Get rid of all cigarettes. Put away all smoking related objects such as ashtrays. Ask the peopleyou live with not to smoke in your presence for the first two weeks. ___ Spend as much time as possible with non-smoking people. ___ Keep busy, especially on evenings and weekends. ___ Avoid high risk situations (large parties, bars, etc.). ___ Spend lots of time in places that prohibit or discourage smoking (e.g., theaters, libraries.) ___ Drink plenty of fluids. ___ Don't substitute food or sugar based products for cigarettes. Use approved substitutions. (... ice water, high bulk/low calorie foods, sugarless gum, mouthwash, brushing teeth.) ___ Begin or increase regular exercise program. ___ When experiencing withdrawal effects: 1. Remind yourself why you are quitting (from your card). 2. Remind yourself that whatever discomfort you are experiencing is only a tiny fraction of the probable discomfort associated with continued smoking. 3. Practice deep breathing or other relaxation techniques - tapes. ___ Remind yourself that you can free yourself from this unhealthy, expensive, messy habit and become a non-smoker. Maintenance of Quitting: After two weeks ___ Remind yourself that the desire to smoke is linked to a great many situations, people and emotional stress. ___ When you do have a desire to smoke, remember that it only lasts a few seconds: distract yourselfand leave the situation if necessary. ___ After each desire to smoke has passed, pat yourself on the back, you have just made progress in breaking the habit forever. ___ Save the money on wasted on cigarettes in a special fund and buy yourself something nice. Maintenance of Quitting: After Two Months ___ Be particularly vigilant when unusual life events occur. (.. weddings, holidays, vacations.) ___ Be particularly vigilant when stressful life events occur (e.g., relationship problems, financial or work problems.) ___ Remind yourself regularly that not smoking is completely within your personal control. ___ Never lull yourself into thinking you are out of danger and you can safely have a cigarette or two. -- you cannot!!!!! ___ If, by chance, you do slip and have one or more cigarettes, do not conclude that all is lost. Return to complete abstinence immediately and learn from your experience. ___ If you have gained significant weight since quitting, now is the time to do something about it. ___ Each time you see a cigarettes advertisement, remind yourself of why you quit. Also remember that a [employer] industry spends billions of dollars each year trying to get people like yourself re-hooked. index#[id number] signed by Neeta Patino (Architecture Technician [employer] Agriculture Teacher) KATY Gonzalez at 04/11/2020 4:57 PM EDT documented in this encounter History of Present Illness Neeta Gonzalez (Architecture Technician [employer] Agriculture Teacher), [employer]ON CLEANER - 04/08/2020 3:53 PM EDT CHIEF COMPLAINT: Jeimy Morales is a 34 year old female, patient of Dr. Vizcarra, who presents for ER F/U from [facility] for pain in her right buttock that is radiating down her right leg. She had been moving heavy furniture prior to the pain beginning so she decided to seek care. They did not do any imaging but gave her aToradol injection and prescriptions for Naproxen and Flexeril. She states the medications haven't helped much at all. She reports she is continuing to have the pain and describes it as burning and a 7/10 at its worst. She is more concerned with the weakness in her right leg/foot she is having. States she is unable to stand up on the ball of her right foot without her ankle/foot wanting to give out. Also has been walking with a limp due to the pain and weakness. Only previous back injury was back in October when she fell and injured her left lower back. The history is provided by the patient. No photoengraving printer was used. Back Pain This is a new problem. The current episode started more than 1 week ago. The problem occurs daily. The problem has not changed since onset.The pain is associated with lifting heavy objects. The pain ispresent in the lumbar spine. The quality of the pain is described as shooting and burning. The pain radiates to the right thigh and right knee. The pain is at a severity of 7/10. The pain is moderate. The symptoms are aggravated by bending, twisting and certain positions. The pain is the same all the time. Stiffness is present in the morning. Associated symptoms include numbness (right foot), leg pain and weakness (right foot). Pertinent negatives include no chest pain, no fever, no weight loss, no headaches, no abdominal pain, no abdominal swelling, no bowel incontinence, no perianal numbness, no bladder incontinence, no dysuria, no pelvic pain, no paresthesias, no paresis and no tingling. She has tried NSAIDs and muscle relaxants for the symptoms. The treatment provided no relief. Risk factors include lack of exercise. PAST MEDICAL HISTORY Diagnosis Date ? ADHD (attention deficit hyperactivity disorder) ? Post depression ? Psychiatric disorder PAST SURGICAL HISTORY Procedure Laterality Date ? REMOVAL OF SKIN LESION 1992 susan removed no complication Social History Tobacco Use ? Smoking status: Current Some Day Smoker Packs/day: 0.50 Years: 10.00 Pack years: 5.00 Types: Cigarettes ? Smokeless tobacco: Never Used Substance Use Topics ? Alcohol use: Yes Comment: socially ? Drug use: No ALLERGIES Allergen Reactions ? Bactrim [Sulfametho* Hives ? Latex Rash ? Sulfa (Sulfonamide * Hives Family History Problem Relation Age of Onset ? Hypertension Mother ? Asthma Mother ? Hypertension Father ? Cancer Father lung ? other (heart disease) Father ? other (blood clots) Father Current Outpatient Medications Medication Sig Dispense Refill ? TENS unit and electrodes cmpk 1 Package twice daily. 1 Device 0 ? acetaminophen (TYLENOL) 325 mg cap Take by mouth. ? DASETTA /01/25, 28, 0.5/0.75/1 mg- 35 mcg per tablet Take 1 tablet by mouth once daily. 3 ? dextroamphetamine-amphetamine (ADDERALL XR) 30 mg 24 hr capsule Take 30 mg by mouth once daily. ? citalopram (CELEXA) 20 mg tablet TAKE 1 & 1/2 (ONE AND ONE-HALF) TABLETS BY MOUTH ONCE DAILY ? hydrOXYzine pamoate (VISTARIL) 25 mg capsule TAKE 1 CAPSULE BY MOUTH TWICE DAILY NEEDED FOR ANXIETY or sleep ? predniSONE (DELTASONE) 10 mg tablet Take 4 tablets for 3 days, then 2 tablets for 3 days, then 1 tablet for 3 days, then stop 24 tablet 0 ? tiZANidine (ZANAFLEX) 4 mg tablet Take 0.5 tablets by mouth at bedtime as needed. 7 tablet 0 No current facility-administered medications for this visit. Review of Systems Constitutional: Negative for activity change, appetite change, chills, diaphoresis, fatigue, fever and weight loss. Respiratory: Negative for cough, chest tightness and wheezing. Cardiovascular: Negative for chest pain, palpitations and leg swelling. Gastrointestinal: Negative for abdominal pain and bowel incontinence. Genitourinary: Negative for bladder incontinence, dysuria, frequency and pelvic pain. Musculoskeletal: Positive for back pain, gait problem and myalgias (RLE). Negative for arthralgias, joint swelling, neck pain and neck stiffness. Skin: Negative for color change. Neurological: Positive for weakness (right foot) and numbness (right foot). Negative for dizziness, tingling, light-headedness, headaches and paresthesias. BP 150/90 Pulse 96 Temp 99 Ht 5' 6 (1.68m) Wt 144 lb 3.2 oz (65.4kg) SpO2 96% LMP 10/20/2018 BMI 23.29 kg/(m^2). Physical Exam Constitutional: She is oriented to person, place, and time and well-developed, well-nourished, and in no distress. BP elevated HENT: Head: Normocephalic and atraumatic. Mouth/Throat: Uvula is midline, oropharynx is clear and moist and mucous membranes are normal. Eyes: Pupils are equal, round, and reactive to light. Neck: Normal range of motion and full passive range of motion without pain. Neck supple. Cardiovascular: Normal rate, regular rhythm and normal heart sounds. Pulmonary/Chest: Effort normal and breath sounds normal. Musculoskeletal: Lumbar back: She exhibits decreased range of motion, tenderness (right paraspinal muscle tenderness) and pain. She exhibits no bony tenderness, no swelling, no edema and no deformity. Back: Comments: Negative straight leg test Neurological: She is alert and oriented to person, place, and time. She has normal motor skills, normal strength and normal reflexes. She displays no weakness. Reflex Scores: Patellar reflexes are 2+ on the right side and 2+ on the left side. Skin: Skin is warm, dry and intact. No rash noted. Nursing note and vitals reviewed. ASSESSMENT/PLAN: 1. Lumbar radiculopathy - ICD9: 724.4, ICD10: M54.16 (primary diagnosis) Mechanical low back pain. She had good strength and DTRs bilaterally. Suspect possible impingement/sciatica. - Prednisone burst- see orders - Muscle relaxant- see orders - Xrays- see orders - Patient given instructions use of medications as ordered, intermittent rest, improved posture, proper lifting techniques, intermittent use of heat and avoiding sleeping on a heating pad - Follow up in 2 weeks and with primary care provider or sooner if symptoms persist or worsen - Per chart review, it appears that she has seen Dr. Steele with [facility] for low back pain and has been on Meloxicam previously. Has used a TENS unit. She was to follow up in 3 months but did not (possibly due to COVID pandemic). - XR LUMBAR GENERAL 3V AP/LAT/L5-S1 - PREDNISONE 10 MG TABLET - TIZANIDINE 4 MG TABLET 2. Elevated blood pressure reading without diagnosis of hypertension - ICD9: 796.2, ICD10: R03.0 - Patient had two elevated blood pressure readings at today's visit. Per chart review, it appears she has had elevated readings in the past. She also hasn't had any lab work completed recently. Will obtain basic labs including CMP, TSH, CBC, and lipid panel. - Encouraged dietary sodium restriction/DASH diet - Recommended regular aerobic exercise. - Recommend home blood pressure monitoring, to bring results in on next visit - Recheck in 2 weeks, sooner if needed. - Goal of BP <130/80 - Patient counseled on smoking cessation. - COMP METABOLIC PANEL - CBC - TSH BLD 3. Screening for lipid disorders - ICD9: V77.91, ICD10: Z13.220 - LIPID PANEL BASIC 4. Cigarette smoker - ICD9: 305.1, ICD10: F17.210 - Smokes 1/2 ppd - Cessation encouraged. - Physiologic and physical aspects of tobacco addiction as well as strategies for quitting were discussed. - Counseling was given focusing on the harmful effects of this addiction especially given the patient's medical condition(s) which will be worsened because of the chemicals in tobacco. - Counseling was given 3-4 minutes. - Declines medication or assistance at this time. New medication(s) prescribed today: Yes: Prednisone and Zanaflex. Discussed new medication dosage, usage, goals of therapy, and side effects. Patient has been apprised of any potential drug interactions to be aware of. Patient expresses understanding. Do not drink alcohol while taking this medication. Copy of written care plan, clinical summary, treatment plan, new medications, goals, and self management requirements were given to patient. Neeta Gonzalez APRN.KATY documented in this encounterChai Ramirez ([facility]) - 03/24/2020 4:29 PM EDTED Follow Up: Patient discharged from [facility] [place] ED on 03/22/20. 1. How are you feeling since your ED visit? Left VM Have your symptoms improved or resolved? Left VM 2. Were you prescribed any medications while in the ED or advised to stop any medication? Left VM - If yes, were you able to fill your prescriptions? Left VM -if stopped medication, what was the medication? Left VM 3. Were you advised to schedule a follow up appointment with your provider? Left VM - If no, Do you feel like you need an appointment scheduled? Left VM - If yes, Do you need this scheduled now or has this already been scheduled? Left VM 4. Were you able to contact the office or project consultant provider prior to your ED visit? Left VM 5. Is there anything else I can do for you today? Left VM documented in this encounter Additional Source Comments FOR RECORDS PERTAINING TO PATIENTS WHO ARE OR HAVE BEEN ENROLLED IN A CHEMICAL DEPENDENCY/SUBSTANCE ABUSE PROGRAM, SOME INFORMATION MAY BE OMITTED. This clinical summary was aggregated from multiple sources. Caution should be exercised in using it in the provision of clinical care. This summary normalizes information from multiple sources, and as a consequence, information in this document may materially changethe coding, format and clinical context of patient data. In addition, data may be omittedin some cases. CLINICAL DECISIONS SHOULD BE BASED ON THE PRIMARY CLINICAL RECORDS. [facility] provides no warranty or guarantee of the accuracy or completeness of information in this document. UNRECOGNIZED CONTENT PROVIDED BELOW FOR UNRECOGNIZED SECTION Source Comments In the event this information is protected by the Federal Confidentiality of Alcohol and Drug Abuse Patient Records regulations: The Federal rules restrict any use of the information to criminally investigate or prosecute any alcohol or drug abuse patient.[facility] CenterIn the event this information is protected by the Federal Confidentiality of Alcohol and Drug Abuse Patient Records regulations: The Federal rules restrict any use of the information to criminally investigate or prosecute any alcohol or drug abuse patient.[facility] CenterIn the event this information is protected by the Federal Confidentiality of Alcohol and Drug Abuse Patient Records regulations: The Federal rules restrict any use of the information to criminally investigate or prosecute any alcohol or drug abuse patient.[facility] CenterIn the event this information is protected by the Federal Confidentiality of Alcohol and Drug Abuse Patient Records regulations: The Federal rules restrict any use of the information to criminally investigate or prosecute any alcohol or drug abuse patient.[facility] CenterIn the event this information is protected by the Federal Confidentiality of Alcohol and Drug Abuse Patient Records regulations: The Federal rules restrict any use of the information to criminally investigate or prosecute any alcohol or drug abuse patient.[facility] CenterIn the event this information is protected by the Federal Confidentiality of Alcohol and Drug Abuse Patient Records regulations: The Federal rules restrict any use of the information to criminally investigate or prosecute any alcohol or drug abuse patient.[facility] CenterIn the event this information is protected by the Federal Confidentiality of Alcohol and Drug Abuse Patient Records regulations: The Federal rules restrict any use of the information to criminally investigate or prosecute any alcohol or drug abuse patient.[facility] UNRECOGNIZED CONTENT PROVIDED BELOW FOR UNRECOGNIZED SECTION Reason for Visit Reason Onset Date Comments Missed Appointment 04/22/2020 Second missed appoin tment Reason Comments ER F/U Leg pain/spasms Reason Onset Date Comments ED Follow Up 03/24/2020 Reason Comments Results Reason Comments Missed Appointment 3rd no show UNRECOGNIZED CONTENT PROVIDED BELOW FOR UNRECOGNIZED SECTION Miscellaneous Notes Telephone Encounter - Tisha Cottrell - 04/22/2020 9:02 AM EDTNo Show Documentation Jeimy Morales no showed for an appointment on 04/21/20 with Micki Vizcarra MD at 11:40 am. She was scheduled for 2 WK F/U BP CK AND BACK PAIN PER BQ SAB. I called and spoke with the patient regarding her missed appointment. Jeimy stated the reason that she missed her appointment was because scheduling error/conflict . Resources discussed/offered to patient: to reschedule. No show determined to be fault of patient: Yes This is the patients second no show in the last 12 months. Patient was rescheduled for 04/27/20 at 2:20 pm. Letter mailed : Yes Is this the Third or Fourth No Show? No Tisha Cottrell April 22, 2020 9:17 AM documented in this encounterTelephone Encounter - Timur Vernon ([facility]) - 04/28/2020 1:13 PM EDTLeft message informing patient of results and no changes in management at this time. Timur Vernon CMA elephone Encounter - VernonTimur ([facility]) - 04/28/2020 1:13 PM EDT----- Message from Micki Vizcarra sent at 04/28/2020 10:09 AM EDT ----- Labs are fairly unremarkable. No changes in management. documented in this encounter Telephone Encounter - Rosanna Staton - 04/28/2020 3:08 PM EDTNo Show Documentation Jeimy Morales no showed for an appointment on 04/28/2020 with Micki Vizcarra MD at 11:40. She was scheduled for follow up for back pain. I called and was unable to reach patient. I mailed a letter letting her know to reschedule appointment. Resources discussed/offered to patient: N/A No show determined to be fault of patient: N/A This is the patients third no show in the last 12 months. Patient was rescheduled for waiting for patient to call office. Letter mailed : Yes Is this the Third or Fourth No Show? No Rosanna Staton April 28, 2020 3:10 PM documented in this encounter UNRECOGNIZED CONTENT PROVIDED BELOW FOR UNRECOGNIZED SECTION INFORMATION SOURCE DATE CREATED AUTHOR AUTHOR'S ORGANIZATIO N 10/30/2018 [facility] DATE CREATED AUTHOR AUTHOR'S ORGANIZATIO N 04/09/2020 [facility] DATE CREATED AUTHOR AUTHOR'S ORGANIZATIO N 04/29/2020 [facility] DATE CREATED AUTHOR AUTHOR'S ORGANIZATIO N 05/01/2020 [facility] UNRECOGNIZED CONTENT PROVIDED BELOW FOR UNRECOGNIZED SECTION Nursing Notes Michelle Chilel ([facility]) - 04/08/2020 3:40 PM EDTPt here for ER f/u from [facility]. States she was having pain in her R buttocks and radiating down her leg. States it felt like a burning spasm. They gave naproxen, flexeril and a shot in the ER. States she feels like she has lost strength in that leg. documented in this encounter
--- OUTSIDE RECORDS SUMMARY | 2020-05-03 08:02 | XMS RPT_ITS | CCD ---
:1985 External Reference #:[id number] Author Organization [facility] Care Team Providers Name Role Phone Thomsa Vizcarra Primary Care Provider Romana Velasco Unavailable RAZ RIVERA Attending Unavailable Allergies Reported Allergen Reaction(s) Severity Date of Onset Location Latex Translations: [ LATEX] Rash 06-26-2017 - [facility] (40890) [facility] 08-[facility]-2016 - [facility] spital Trimethoprim Translations: [ (94736) SULFAMETHOXAZOLE-TRIMETHOPRIM ] Sulfonamides (Antibiotic) [facility] 08-23-2016 - [facility] Translations: [ SULFA (34312 ) (SULFONAMIDE ANTIBIOTICS)] Medications Medication Name Sig Date Prescriber Location Acetaminophen acetaminophen (TYLENOL) 325 [facility] Provider [facility] mg cap Take by mouth. 0 (441 95) Active Comment: Take by mouth. Amphetamine dextroamphetamine-amphetamine 08-28-2017 [facility] [place] aspartate / (ADDERALL XR) 30 mg 24 hr Provider Moris luis Amphetamine Sulfate capsule Take 30 mg by mouth once (98713) / Dextroamphetamine daily. 0 08/28/2017 Active saccharate / Dextroamphetamine Sulfate Comment: Take 30 mg by mouth once bam pineda. Benzocaine / benzocaine-menthol 04-29-2019 - Micki Hong Menthol (CEPACOL SORE THROAT, 04-11-2020 [facility] (46398) LETA-MEN,) 15-2.6 mg lozg lozenge Indications: Sore throat Take 1 Lozenge by mouth every 3 hours as needed. 60 Lozenge 0 04/29/2019 04/11/2020 Discontinued (Course of therapy completed) Comment: Take 1 Lozenge by mouth ever y 3 hours as needed. Citalopram citalopram (CELEXA) 20 mg 04-05-2020 [facility] Provider [facility] (51515) tablet TAKE 1 & 1/2 (ONE AND ONE-HALF) TABLETS BY MOUTH ONCE DAILY 0 04/05/2020 Active Comment: TAKE 1 & 1/2 (ONE AND ONE-LEES LF) TABLETS BY MOUTH ONCE DAILY cyclobenzaprine cyclobenzaprine 11-09-2019 - Yari Hong (FLEXERIL) 10 mg 04-08-2020 [facility] (4 8845) tablet Take 1 tablet by mouth every 8 hours as needed for Muscle Spasm (or pain). 14 tablet 0 11/09/2019 04/08/2020 Discontinued (Changing Therapy/Dosage Form) Comment: Take 1 tablet by mouth every 8 hours as needed for Muscle Spasm (or pain). Ethinyl Estradiol / DASETTA , 28, 04-03-2018 [facility] Provider [facility] Norethindrone 0.5/0.75/1 mg- 35 (88368) mcg per tablet Take 1 tablet by mouth once daily. 3 04/03/2018 Active DASETTA , 28, 0.5/0.75/1 mg- 35 04-03-2018 [facility] Provide [facility] (09048) mcg per tablet Take 1 tablet by mouth once daily. 3 04/03/2018 Active DASETTA , 28, 0.5/0.75/1 mg- 35 04-03-2018 [facility] Provide r [facility] (34828) mcg per tablet Take 1 tablet by mouth once daily. 3 04/03/2018 Active DASETTA , 28, 0.5/0.75/1 mg- 35 04-03-2018 [facility] Provide [facility] (05965) mcg per tablet Take 1 tablet by mouth once daily. 3 04/03/2018 Active DASETTA , 28, 0.5/0.75/1 mg- 35 04-03-2018 [facility] Provide r [facility] (93092) mcg per tablet Take 1 tablet by mouth once daily. 3 04/03/2018 Active DASETTA 7, 28, 0.5/0.75/1 mg- 35 04-03-2018 [facility] Provide [facility] (02650) mcg per tablet Take 1 tablet by mouth once daily. 3 04/03/2018 Active DASETTA 7, 28, 0.5/0.75/1 mg- 35 04-03-2018 [facility] Provide r [facility] (97749) mcg per tablet Take 1 tablet by mouth once daily. 3 04/03/2018 Active Comment: Take 1 tablet by mouth once daily. FLUoxetine FLUoxetine (PROZAC) 20 mg 04-11-2020 [facility] Provider [facility] capsule Take 20 mg by mouth (08147) once daily. 0 04/11/2020 Discontinued (Discontinued by Patient) Comment: Take 20 mg by mouth once bam ly. gabapentin gabapentin 04-22-2019 - Rocio Steele [facility] (NEURONTIN) 300 mg 04-11-2020 (94240) capsule Indications: Acute left-sided low back pain [...] naproxen (NAPROSYN) 11-09-2019 - Yari Harper x [facility] 500 mg tablet Take 1 04-11-2020 (15835) tablet by mouth twice daily as needed. TAKE WITH FOOD 14 tablet 0 11/09/2019 04/11/2020 Discontinued (Course of therapy completed) Comment: Take 1 tablet by mouth twice daily as needed. TAKE WITH FOOD Omeprazole omeprazole (PRILOSEC) 04-14-2019 - Micki Vizcarra [facility] 20 mg capsule 04-11-2020 (37859) Indications: Right sided abdominal pain Take 1 capsule by mouth once daily. 30 capsule 2 04/14/2019 04/11/2020 Discontinued (Course of therapy completed) Comment: Take 1 capsule by mouth once daily. predniSONE predniSONE (DELTASONE) 10 04-08-2020 Neeta A ([facility] mg tablet Indications: Plastic Extruding Machine Operator) [place] (4419 5) Lumbar radiculopathy Take 4 tablets for 3 days, then 2 tablets for 3 days, then 1 tablet for 3 days, then stop 24 tablet 0 04/08/2020 Active Comment: Take 4 tablets for 3 days, t hen 2 tablets for 3 days, then 1 tablet for 3 days, then stop TENS unit and TENS unit and 04-[facility]2019 [facility] (57934) Indications: Neck pain , Myofascial pain 1 Package twice daily. 1 Device 0 04/22/2019 Active TENS unit and electrodes [facility] 04-22-2019 [facility] (39003) Indications: Neck pain , Myofascial pain 1 Package twice daily. 1 Device 0 04/22/2019 Active TENS unit and electrodes [facility] 04-22-2019 [facility] (18964) Indications: Neck pain , Myofascial pain 1 Package twice daily. 1 Device 0 04/22/2019 Active TENS unit and electrodes [facility] 04-22-2019 [facility] (13989) Indications: Neck pain , Myofascial pain 1 Package twice daily. 1 Device 0 04/22/2019 Active TENS unit and electrodes [facility] 04-22-2019 [facility] (81970) Indications: Neck pain , Myofascial pain 1 Package twice daily. 1 Device 0 04/22/2019 Active TENS unit and electrodes [facility] 04-22-2019 [facility] (87521) Indications: Neck pain , Myofascial pain 1 Package twice daily. 1 Device 0 04/22/2019 Active TENS unit and electrodes [facility] 04-22-2019 [facility] (95750) Indications: Neck pain , Myofascial pain 1 Package twice daily. 1 Device 0 04/22/2019 Active Comment: 1 Package twice daily. 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 7 tablet 0 04/08/2020 Active Comment: Take 0.5 tablets by mouth at bedtime as needed. Problems Category Problem Name Status Date Location Abdominal pain Right lower quadrant Active 10-30-2018 - [facility] pain (77988) Other circulatory Elevated blood-pressure Active [facility] disease reading without (44478) diagnosis of hypertension Other liver diseases Other specified Active 10-30-2018 - [facility] diseases of liver (36637) Spondylosis; Lumbar radiculopathy Active [facility] intervertebral disc (36797) disorders; other back problems Substance-related Cigarette smoker Active [facility] disorders (16880) Unclassified Patient encounter Active [facility] status (08646) Results Result Name Value Range Unit Interpretation Flag Date Location [facility] 2020[facility]04-28 [facility]) Normal 0 [facility] JEIMY MORALES ([id number]) 1985 [facility] Time Provider Department (85845) 04/28/20 MICKI VIZCARRAINTNIRAV During your visit today, [...] Date Reviewed: 04/08/2020 Reviewed by: Neeta Patino (Auto 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) KATY Gonzalez - Fully Assess ed Reason [...] VERNON on 04/28/20 CNPN Telephone (AGINTMLW) Normal [address] [place] [address] Clinic JEIMY MORALES ([id number]) 1985 [facility] Date Time Provider Department (90030) 04/28/20 [facility] During your visit today, we [...] rescheduled for waiting for patient to call up health system. Letter mailed : Yes Is this the Third or Fourth No Show? No Rosanna Staton April 28, 2020 3:10 PM Allergies As of Date: 04/28/2020 Noted Allergy Reaction BACTRIM (SULFAMETHOXAZOLE-TRIMETH*08/23/2016 4 - Hives LATEX 06/26/2017 2 - Rash SULFA (SULFONAMIDE ANTIBIOTICS) 08/23/2016 4 - Hives Date Reviewed: 04/08/2020 Reviewed by: Neeta Patino (Auto 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) KATY Gonzalez - Fully Assess ed Reason [...] Date: 04/28/2020 (None) Encounter Status:Closed by ROSANNA STTAON on 04/28/20 [facility] on 2 TSH Qn 1.130 0.270-4.200 uU/mL Normal 04-27-2020 [facility] (31378) Comment: Order Comment: Specimen Type : BLOOD [...] et al. 2017 Guide lines of the [place] Thyroid Association for the Diagnosis and Management of Thyroid Disease during and the . Thyroid, 2017:27:3:315-389. Performed By: #### 93867-0, 3016-3, LIPB #### [facility] CLIA [id number] [address] [place] [address] [place] lipid panel basic o n 2020-04-27 Cholesterol [Mass/Vol] 197 <200 mg/dL Normal 020 [facility] (07446) Comment: Order Comment: Specimen Type : BLOOD SPECIMEN Result Comment: <200 mg/dL, Desirable 200-239 mg/dL, Borderline hi gh >239 mg/dL, High Performed By: #### 16580-4, 3016-3, LIPB #### [facility] CLIA [id number] [address] [place] [address] [place] Cholesterol in HDL [Mass/Vol] 70 >39 mg/dL Normal 04-27-2020 [facility] (00 000) Comment: Order Comment: Specimen Type : BLOOD SPECIMEN Result Comment: 40-59 mg/dL, Acceptable >59 mg/dL, High: Negative ri sk factor for coronary heart disease <40 mg/dL, Low: Positive ris k factor for coronary heart disease Performed By: #### 46428-7, 3016-3, LIPB #### [facility] CLIA [id number] [address] [place] [address] [place] Cholesterol in LDL [Mass/Vol] 102 <100 mg/dL High 04-27-2020 [facility] (00 000) Comment: Order Comment: Specimen Type : BLOOD SPECIMEN Result Comment: <100 mg/dL, Optimal 100-129 mg/dL, Near optimal/ above optimal 130-159 mg/dL, Borderline hi gh 160-189 mg/dL, High >189 mg/dL, Very high Secondary prevention optimal LDL Cholesterol levels are recommended to be < 70 mg/dL Performed By: #### 20922-2, 3016-3, LIPB #### [facility] CLIA [id number] [address] [place] [address] [place] Cholesterol in LDL/Cholesterol 1.46 <2.54 Normal 04-27-2020 [facility] in HDL [Mass ratio] Center (94493) Comment: Order Comment: Specimen Type : BLOOD SPECIMEN Result Comment: Reference: 1. National Cholesterol Educ ation Program ATP III Guideline At-A-Glance Quick Desk Reference: National Heart, Lung, and Blood [place]. National Institutes of Health. 2001: NIH Publication No. 01-3305. 2. An International Atherosc lerosis Society position paper: global recommendations for the management of dyslipidemia: executive summary, Atherosclerosis. 2014: 232(2):410-413. Performed By: #### 93719-6, 3016-3, LIPB #### [facility] CLIA [id number] [address] [place] [address] [place] Cholesterol in VLDL 25 <30 mg/dL Normal 04-27-2020 [facility] [Mass/Vol] [place] (0 0000) Comment: Order Comment: Specimen Type : BLOOD SPECIMEN Performed By: #### 32447-2, 3016-3, LIPB #### [facility] CLIA [id number] [address] [place] [address] [place] Cholesterol non HDL 127 <130 mg/dL Normal 04-27-2020 [facility] [Mass/Vol] [place] (0 0000) Comment: Order Comment: Specimen Type : BLOOD SPECIMEN Result Comment: <130 mg/dL, Optimal 130-159 mg/dL, Near optimal/ above optimal 160-189 mg/dL, Borderline hi gh 190-219 mg/dL, High >219 mg/dL, Very high Secondary prevention optimal non HDL Cholesterol levels are recommended to be <100 mg/dL Performed By: #### 05781-4, 3016-3, LIPB #### [facility] CLIA [id number] [address] [facility] [place] [place] [address] [place] Cholesterol.total/Cholesterol in HDL 2.81 <5.10 Nor mal 04-27-2020 [facility] [Mass ratio] [facility] (53367) Comment: Order Comment: Specimen Type : BLOOD SPECIMEN Performed By: #### 68482-5, 3016-3, LIPB #### [facility] CLIA [id number] [address] [facility] [place] [address] [place] FASTING TIME 10 hrs Normal 04-27-2020 [facility] (74449) Comment: Order Comment: Specimen Type : BLOOD SPECIMEN Performed By: #### 09271-3, 3016-3, LIPB #### [facility] CLIA [id number] [address] [place] [address] [facility] Triglyceride [Mass/Vol] 124 <150 mg/dL Normal 2019 [facility] (84230) Comment: Order Comment: Specimen Type : BLOOD SPECIMEN Result Comment: <150 mg/dL, Normal 150-199 mg/dL, Borderline hi gh 200-499 mg/dL, High >499 mg/dL, Very high Performed By: #### 35454-5, 3016-3, LIPB #### [facility] CLIA [id number] [address] [place] [address] [facility] comp metab 2000 pnl serpl on 2020-04-27 Albumin [Mass/Vol] 4.6 3.9-4.9 g/dL Normal 04-27-2020 [facility] (83221) Comment: Order Comment: Specimen Type : BLOOD SPECIMEN Performed By: #### 71864-8, 3016-3, LIPB #### [facility] CLIA [id number] [address] [place] [address] [facility] ALP [Catalytic activity/Vol] 61 34-123 U/L Normal 1 [facility] (00 000) Comment: Order Comment: Specimen Type : BLOOD SPECIMEN Performed By: #### 38362-0, 3016-3, LIPB #### [facility] CLIA [id number] [address] [place] [address] [facility] ALT With P-5'-P [Catalytic 31 7-38 U/L Normal [facility] Medical activity/Vol] Center (08461) Comment: Order Comment: Specimen Type : BLOOD SPECIMEN Performed By: #### 69570-4, 3016-3, LIPB #### [facility] CLIA [id number] [address] [place] [address] [facility] Anion gap [Moles/Vol] 8 9-18 mmol/L Low 04-27-20 [facility] (15318) Comment: Order Comment: Specimen Type : BLOOD SPECIMEN Performed By: #### 10114-0, 3016-3, LIPB #### [facility] CLIA [id number] [address] [facility] [place] [address] [place] AST With P-5'-P [Catalytic 25 13-35 U/L Normal [facility] activity/Vol] Center (07104) Comment: Order Comment: Specimen Type : BLOOD SPECIMEN Performed By: #### 01177-2, 3016-3, LIPB #### [facility] CLIA [id number] [address] [facility] [place] [address] [place] Bilirubin [Mass/Vol] 0.3 0.2-1.3 mg/dL Normal 0 [facility] (92122) Comment: Order Comment: Specimen Type : BLOOD SPECIMEN Performed By: #### 49405-1, 3016-3, LIPB #### [facility] CLIA [id number] [address] [facility] [place] [address] [place] Calcium [Mass/Vol] 9.3 8.5-10.2 mg/dL Normal 04-27-2020 [facility] (48508) Comment: Order Comment: Specimen Type : BLOOD SPECIMEN Performed By: #### 95800-5, 3016-3, LIPB #### [facility] CLIA [id number] [address] [facility] [place] [address] [place] Chloride [Moles/Vol] 99 97-105 mmol/L Normal 0 [facility] (94129) Comment: Order Comment: Specimen Type : BLOOD SPECIMEN Performed By: #### 27300-1, 3016-3, LIPB #### [facility] CLIA [id number] [address] [facility] [place] [address] [place] CO2 [Moles/Vol] 28 22-30 mmol/L Normal 04-27-2020 [facility] (19048) Comment: Order Comment: Specimen Type : BLOOD SPECIMEN Performed By: #### 02713-6, 3016-3, LIPB #### [facility] CLIA [id number] [address] [place] [address] [place] Creatinine [Mass/Vol] 0.76 0.58-0.96 mg/dL Normal 04-27-20 [facility] (00 000) Comment: Order Comment: Specimen Type : BLOOD SPECIMEN Performed By: #### 33700-8, 3016-3, LIPB #### [facility] CLIA [id number] [address] [place] [address] [place] GFR/1.73 sq M predicted >60 mL/min/{1.73_m2} Normal 04-27-2020 [facility] among blacks [facility] (S/P/Bld) [Vol (0000 0) rate/Area] Comment: Order Comment: Specimen Type : BLOOD SPECIMEN Performed By: #### 65679-4, 3016-3, LIPB #### [facility] CLIA [id number] [address] [place] [address] [place] GFR/1.73 sq M predicted >60 mL/min/{1.73_m2} Normal 04-27-2020 [facility] among non-blacks [facility] (S/P/Bld) [Vol (0000 0) rate/Area] Comment: Order [...] accurately reflect actual GFR. Performed By: #### 39201-4, 3016-3, LIPB #### [facility] CLIA [id number] [address] [place] [address] [place] Glucose [Mass/Vol] 90 74-99 mg/dL Normal 04-27-2020 [facility] (36201) Comment: Order Comment: Specimen Type : BLOOD SPECIMEN Result Comment: The [place] Diabetes Association (ADA) provides guidance for cutoff [...] for diagnosis of diabetes. Reference: Standards of [facility] Care in Diabetes 2016, [place] Diabetes Association. Diabetes Care. 2016.39(Suppl 1). Performed By: #### 44216-6, 3016-3, LIPB #### [facility] CLIA [id number] [address] [place] [address] [place] Potassium [Moles/Vol] 4.2 3.7-5.1 mmol/L Normal 04-27-20 [facility] (00 000) Comment: Order Comment: Specimen Type : BLOOD SPECIMEN Performed By: #### 05188-7, 3016-3, LIPB #### [facility] CLIA [id number] [address] [place] [address] [place] Protein [Mass/Vol] 7.2 6.3-8.0 g/dL Normal 04-27-2020 [facility] (14789) Comment: Order Comment: Specimen Type : BLOOD SPECIMEN Performed By: #### 01457-2, 3016-3, LIPB #### [facility] CLIA [id number] [address] [place] [address] [place] Sodium [Moles/Vol] 135 136-144 mmol/L Low 04-27-2020 [facility] (00648) Comment: Order Comment: Specimen Type : BLOOD SPECIMEN Performed By: #### 16302-2, 3016-3, LIPB #### [facility] CLIA [id number] [address] [facility] [place] [address] [facility] Urea nitrogen [Mass/Vol] 11 7-21 mg/dL Normal 04-27 [facility] (31407) Comment: Order Comment: Specimen Type : BLOOD SPECIMEN Performed By: #### 05109-6, 3016-3, LIPB #### [facility] CLIA [id number] [address] [facility] [place] [address] [place] cbc (hemogram) bld auto on 2020-04-27 Erythrocyte distribution 14.8 11.5-15.0 % Normal 04-27 [facility] (RBC) [Ratio] Center (52157) Comment: Order Comment: Specimen Type : BLOOD SPECIMEN Performed By: #### 80697-9 # ### [facility] CLIA [id number] [address] [place] [address] [place] [facility] Hematocrit (Bld) [Volume 44.0 36.0-46.0 % Normal 04-27 [facility]] [place] (00 000) Comment: Order Comment: Specimen Type : BLOOD SPECIMEN Performed By: #### 65001-9 # ### [facility] CLIA [id number] [address] [place] [address] [facility] Hemoglobin (Bld) 14.2 11.5-15.5 g/dL Normal 04-27-2020 [facility] [Mass/Vol] Center (0 0000) Comment: Order Comment: Specimen Type : BLOOD SPECIMEN Performed By: #### 28224-9 # ### [facility] CLIA [id number] [address] [place] [address] [facility] MCH (RBC) [Entitic mass] 31.1 26.0-34.0 pg Normal 04-27 [facility] (00 000) Comment: Order Comment: Specimen Type : BLOOD SPECIMEN Performed By: #### 06521-8 # ### [facility] CLIA [id number] [address] [facility] [place] [address] [place] MCHC (RBC) [Mass/Vol] 32.3 30.5-36.0 g/dL Normal 04-27-20 [facility] (00 000) Comment: Order Comment: Specimen Type : BLOOD SPECIMEN Performed By: #### 43814-0 # ### [facility] CLIA [id number] [address] [facility] [place] [address] [place] MCV (RBC) [Entitic vol] 96.5 80.0-100.0 fL Normal 04-27 [facility] (00 000) Comment: Order Comment: Specimen Type : BLOOD SPECIMEN Performed By: #### 53688-4 # ### [facility] CLIA [id number] [address] [facility] [place] [address] [place] [facility] Platelet mean volume (Bld) 9.2 9.0-12.7 fL Normal [facility] [Entitic vol] Center (70163) Comment: Order Comment: Specimen Type : BLOOD SPECIMEN Performed By: #### 21897-3 # ### [facility] CLIA [id number] [address] [place] [address] [facility] Platelets (Bld) [#/Vol] 306 150-400 k/uL Normal 2019 [facility] (00 000) Comment: Order Comment: Specimen Type : BLOOD SPECIMEN Performed By: #### 79569-7 # ### [facility] CLIA [id number] [address] [facility] [place] [address] [place] RBC (Bld) [#/Vol] 4.56 3.90-5.20 m/uL Normal 04-27-2020 [facility] (14720) Comment: Order Comment: Specimen Type : BLOOD SPECIMEN Performed By: #### 26631-6 # ### [facility] CLIA [id number] [address] [facility] [place] [address] [place] WBC (Bld) [#/Vol] 11.33 3.70-11.00 k/uL High 04-27-2020 [facility] (79279) Comment: Order Comment: Specimen Type : BLOOD SPECIMEN Performed By: #### 43053-0 # ### [facility] CLIA [id number] [address] [place] [address] [place] cnpn on 2020-04-22 CNPN Telephone (AGINTMLW) Normal [address] [place] [address] [facility] JEIMY MORALES ([id number]) 1985 [facility] Time Provider Department (39752) 04/22/20 MICKI VIZCARRA AGINTMLW During your visit today, we recorded the following informati on about you: Tisha Enrique 04/22/2020 9:20 AM Signed No Show Documentation Jeimy Harrington Andrew no showed for an appointment on 04/21/20 [facility] Micki Vizcarra MD at 11:40 am. She [...] Date Reviewed: 04/08/2020 Reviewed by: Neeta Patino (Auto 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) KATY Gonzalez - Fully Assess ed Reason [...] on 2020-04-22 [facility] Letter Text Normal 04-22-2020 [facility] (31276) [facility]) Normal [address] [place] [address] [facility] JEIMY MORALES ([id number]) 1985 [facility] Date Time Provider Department (67715) 04/11/20 MICKI VIZCARRA During your visit today, we recorded the following informati on about you: Maricarmen Houston MA 04/11/2020 11:38 AM Signed ----- Message from Neeta Patino (Auto Clutch Specialist [facility]) KATY Gonzalez sent at 04/10/2020 5:32 PM [...] Date Reviewed: 04/08/2020 Reviewed by: Neeta Patino (Auto 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) KATY Gonzalez - Fully Assess ed Reason [...] 5228 - XR LUMBAR 3V AP/LAT/L5-S1 / ([id number]) PROCEDURE REASON: Lumbar radiculopathy Physician Interpretation XR [...] degenerative changes. No acute frac tures seen Solar Resource Assessor: SHANA Transcribe Date/Time: Apr 08 2020 5:07P Dictated by : TAMMY QUESADA MD This examination was interpreted and the report reviewed and electronically signed by: TAMMY QUESADA MD on Apr 08 2020 5:09PM EST progress on 2020-03 PROGRESS HNO ID: [id number] Normal 04-08-2020 [facility] Author: Neeta Patino (Auto 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) KATY Gonzalez [place] ([id number]) Service: ? Author Type: Nurse Practitioner Type: Progress Notes Filed: 04/11/2020 4:57 PM Note Text: CHIEF COMPLAINT: Jeimy Morales is a 34 year old female, patient of Dr. Julio armando, who presents for ER F/U from [facility] for pain in her right buttock t [...] that she has seen Dr. Ivette perez [facility] for low back pain and has been [...] 2020-04-08 CNOV Office Visit (AGFAMPLE) Normal 2019 [facility] JEIMY MORALES ([id number]) 1985 [facility] Date Time Provider Department ([id number]) 04/08/20 3:20 PM NEETA GONZALEZ (COMMUNITY AFFAIRS MANAGER, MIDDLE SCHOOL ASSISTANT PRINCIPAL)AGFAMPYFN During your visit today, we recorded the following informati on about you: Temperature Pulse Blood pressure Weight 99 degrees 96/minute 150/90 65.4 kg Height 1.676 m Michelle Chilel MA 04/08/2020 3:47 PM Signed Pt here for ER f/u from [facility]. States she was havi ng pain in her R buttocks and radiating down her leg. States it felt like a burning spasm. They gave naproxen, flexeril and a shot in the ER. Sta jules she feels like she has lost strength in that leg. Neeta Gonzalez APRN.KATY MIDDLE SCHOOL ASSISTANT PRINCIPAL 04/11/2020 4:57 PM Signed CHIEF COMPLAINT: Jeimylio Morales is a 34 year old female , patient of Dr. Vizcarra, who presents for ER F/U from [facility] for pain in her right buttock that [...] 4 mg tablet Take 0.5 tablets by [facility] at bedtime as needed. 7 tablet 0 [...] she has seen Dr. Steele with [facility] for low back pain and has been [...] have low back pain? 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 References [employer] [facility] [employer] Neurological Disorders and Stro ke. Low Back Pain Fact Sheet. Accessed 11/11/2012 [employer]. Low Back Pain. A ccessed 11/11/2012 [employer]. Back Pain Facts AND Sta tistics. Accessed 11/11/2012 Tip SD, Jaja S, Pancesar RS. Back pain made simple: an approach based on principles and evidence. Joshua Clin J Med. 2009;76:393?399 ? Copyright 8504-5903 The [facility]. All r ights reserved This information is provided by the [facility] and i s not intended to replace the medical advice of your doctor or health care pro vider. Please consult your health care provider for advice about a specifi c medical condition. For additional health information, please conta ct the Center for Consumer Health Information at the [facility] [phone] CESSATION Stopping smoking is the most important [...] desirable brand of cigarettes. ___ Discard your educational therapy teacher. Use matches. Carry your cigarett es in [...] why you quit. Also remember that a Sosh spends bi llions of dollars each year trying to get people like yourself re-hooked. index#4371 Referring Provider: SELF [200] Allergies As of Date: 04/08/2020 Noted Allergy Reaction BACTRIM (SULFAMETHOXAZOLE-TRIMETH*08/23/2016 4 - Hives LATEX 06/26/2017 2 - Rash SULFA (SULFONAMIDE ANTIBIOTICS) 08/23/2016 4 - Hives Date Reviewed: 04/08/2020 Reviewed by: Neeta Patino (Auto 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) KATY Gonzalez - Fully Assess ed Reason for Visit: ER F/U [41] Cmt: Leg pain/spasms Reason For Visit History Recorded Primary Visit Diagnosis:Lumbar radiculopathy [M54.16] Other Visit Diagnoses:Elevated blood pressure reading withou t diagnosis of hypertension [R03.0] Screening for lipid disorders [Z13.220] Cigarette smoker [F17.210] Order(s):XR LUMBAR GENERAL 3 V AP/LAT/L5-S1 [8576025] Order #: [id number] FUTURE predniSONE (DELTASONE) 10 mg tabletTake 4 tablets for 3 days , then 2 tablets for 3 days, then 1 tablet for 3 days, then stopDisp: 24 tabletRfl: 0 COMP METABOLIC PANEL [SQCMP] Order #: [id number] FUTURE CBC [SQCBC] Order #: [id number] FUTURE TSH BLD [SQTSH] Order #: [id number] FUTURE LIPID PANEL BASIC [SQLIPB] Order #: [id number] FUTURE tiZANidine (ZANAFLEX) 4 mg tabletTake 0.5 [...] have low back pain? 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 References [employer] Neurological Disorders and Stroke. Lo w Back Pain Fact Sheet. Accessed 11/11/2012 [employer]. Low Back Pain. Acc essed 11/11/2012 [employer]. Back Pain Facts AND Sta tistics. Accessed 11/11/2012 Tip SD, Jaja S, Ana RS. Back pain made simple: an ap proach based on principles and evidence. Joshua Clin J Med. 2009;76:393?39 9 ? Copyright 0217-4417 The [facility]. All r ights reserved This information is provided by the [facility] and is not intended to replace the medical advice of your doctor or health care provider. Please consult your health care provider for advice about a specific medical condition. For additional health information, please contact the Center for Consumer Health Information at the [facility] [phone] CESSATION Stopping smoking is the most important [...] desirable brand of cigarettes. ___ Discard your educational therapy teacher. Use matches. Carry your cigarettes in a [...] why you quit. Also remember that a Sosh spends bill ions of dollars each year trying to get people like yourself kai zhao. index#4371 Visit Notes: >> Michelle (Leonid) Getachew Rodriguez Apr 08, 2020 3:40 PM Status: Si gned Pt here for ER f/u from [facility]. States she was having pain in h [...] on 04/11/20 No panel information on 2020-04-08 [facility] ([id number]) progress on 2020-03 PROGRESS HNO ID: [id number] Normal 03-24-2020 [facility] Author: Chai Fraire) Lynn Hong ([id number]) Service: ? Author Type: Driver/Refuse Collector Type: Progress Notes Filed: 03/24/2020 4:31 PM Note Text: ED Follow Up: Patient discharged from [facility] ED on 03/22. 1. How are you [...] you able to contact the office or construction driller provider kyle covarrubias to your ED visit? Left VM 5. Is there anything else I can do for you today? Left VM cnptoutreach on CNPTOUTREACH Patient Outreach (AGINTMLW) Normal 03-24-2020 [facility] JEIMY MORALES ([id number]) 1985 [facility] Date Time Provider Department ([id number]) 03/24/20 CHAI RAMIREZ) AGINTMLW During your visit today, we recorded the following informati on about you: Chai Ramirez CMA 03/24/2020 4:31 PM Signed ED Follow Up: Patient discharged from [facility] ED on 03/22. 1. How are you [...] you able to contact the office or construction driller provider prior to your ED visit? Left [...] 03/24/20 progress on 2019-11 PROGRESS HNO ID: [id number] Normal 12-01-2019 [facility] Author: Jeannine Leon) Ramon Hong ([id number]) Service: ? Author Type: Driver/Refuse Collector Type: Progress Notes Filed: 12/01/2019 11:24 AM Note Text: ED Follow Up: Patient discharged from [facility] ED on 03/2020. 1. How are you [...] you able to contact the office or construction driller provider kyle covarrubias to your ED visit? left msg 5. Is there anything else I can do for you today? left msg Jeannine Briseno MA cnptoutrea on CNPTOUTREACH Patient Outreach (AGINTMLW) [place] 12-01-2019 [place] JEIMY Gonzales ([id number]) 1985 [facility] Date Time Provider Department ([id number]) 12/01/19 MICKI VIZCARRA AGINTMLW During your visit today, we recorded the following informati on about you: Jeannine Briseno MA 12/01/2019 11:24 AM Signed ED Follow Up: Patient discharged from [facility] ED on 03/2020. 1. How are you [...] you able to contact the office or construction driller provider prior to your ED visit? left [...] 12/01/19 progress on 2019-10 PROGRESS HNO ID: [id number] Normal 11-10-2019 [facility] Author: Maricarmen (Leonid) Celso Hong ([id number]) Service: ? Author Type: Driver/Refuse Collector Type: Progress Notes Filed: 11/10/2019 11:57 AM Note Text: ED Follow Up: Patient discharged from [facility] ED on 11/09/2019. 1. How are you [...] you able to contact the office or construction driller provider kyle covarrubias to your ED visit? Not applicable 5. Is there anything else I can do for you today? Not applic able Called left message on machine to see how patient is feeling and advised to contact the office if she needs anything. Rahcel Denson cnptoutreach on CNPTOUTREACH Patient Outreach (AGFAMPLE) Normal 11-10-2019 [facility] JEIMY MORALES ([id number]) 1985 [facility] Date Time Provider Department ([id number]) 11/10/19 MICKI VIZCARRA During your visit today, we recorded the following informati on about you: Maricarmen Houston MA 11/10/2019 11:57 AM Signed ED Follow Up: Patient discharged from [facility] ED on 11/09/2019. 1. How are you [...] you able to contact the office or construction driller provider prior to your ED visit? Not [...] * *Final Report* * * Normal 10-21-2019 [facility] AP/LAT/L5-S1 DATE OF EXAM: Nov 09 2019 7:41PM [facility] System LDX 5228 - XR LUMBAR 3V AP/LAT/L5-S1 / ([id number]) PROCEDURE REASON: Back pain, < 6wks, no [...] If the patient's symptoms persist consider MRI. Solar Resource Assessor: [facility] Transcribe Date/Time: Nov 09 2019 7:43P Dictated by : KWASI BUSTAMANTE MD This examination was interpreted and the report reviewed and electronically signed by: KWASI BUSTAMANTE MD on Nov 09 2019 7:45PM EST xr elbow 3v ap/lat/other lt on 2019-11-09 XR ELBOW 3V * * *Final Report* * * Normal 11-08 [facility] AP/LAT/OTHER LT DATE OF EXAM: Nov 09 2019 7:41PM Health System LDX 5324 - XR ELBOW 3V AP/LAT/OTHER LT / 34 (46531) PROCEDURE REASON: Elbow pain, initial exam * [...] No other significant abnormality. IMPRESSION: Unremarkable exam Solar Resource Assessor: [facility] Transcribe Date/Time: Nov 09 2019 7:45P Dictated by : KWASI BUSTAMANTE MD This examination was interpreted and the report reviewed and electronically signed by: KWASI BUSTAMANTE MD on Nov 09 2019 7:46PM EST urine hcg, qual. on 2019-11-09 Beta HCG ( test) Negative Negative Normal 10-21 [facility] (U) System (00 000) Comment: Performed By: #### LHCG2 ### # [facility] [address] [address] Specific Shaw, Ur 1.025 1.005-1.030 Normal 020 [facility] (00 000) Comment: Performed By: #### LHCG2 ### # [facility] [address] [address] ed prov note on ED PROV NOTE HNO ID: [id number] Normal 11-09-19 [facility] Author: Yari Andres DO [place] ([id number]) Service: Emergency Medicine Author Type: Physician Type: [...] ed note on ED NOTE HNO ID: [id number] Normal 11-09-2019 [facility] Author: Asia Bartholomew RN [place] ([id number]) Service: Emergency Medicine Author Type: Registered Nurse Type: ED Notes Filed: 11/09/2019 9:03 PM Note Text: Dc instr to fu w pmd, return prn, meds as rxd. Verb und. Agr eeable to plan. Pt is AANDO, wdp, resps unlabored, relaxed expression and posture. Ambulates from ER with steady upright gait. ED NOTE HNO ID: [id number] Normal 11-09-2019 [facility] Author: Asia Frances) LINDA Bartholomew [place] ([id number]) Service: Emergency Medicine Author Type: Registered Nurse Type: ED Notes Filed: 11/09/2019 8:31 PM Note Text: Patient informed: the name of medication, why we are giving it, possible side effects, what they may expect to feel, and was offered a chance to ask questions, prior to the administration of toradol ED NOTE HNO ID: [id number] Normal 11-09-2019 [facility] Author: Eusebia Patino (Rn) LINDA Coyne [place] ([id number]) Service: ? Author Type: Registered Nurse Type: ED Notes Filed: 11/09/2019 6:34 PM Note Text: Pt arrives with steady gait to ED bed 12 C/O slip and fall yesterday in house Reports falling onto back Denies head injury C/O lower back pain and bilateral elbow since cnco on 2019-09-02 CNCO Letter Text Normal 09-02-2019 [facility] ([id number]) cnpn on 2019-08-27 CNPN Telephone (AGSPINE2) Normal 0 [facility] JEIMY MORALES ([id number]) 1985 [facility] Time Provider Department Center 08/27/19 ROCIO STEELE2 ([id number]) During your visit today, we recorded the following informati on about you: Duarte Fortuneherty 08/27/2019 12:11 PM Signed NORFLEX has been SUBMITTED to [employer]. Duarte Sher Duarte Connie 09/03/2019 10:06 AM Signed NORFLEX has been APPROVED. Date Span: 07/28/2019 to 08/27/2020 Auth: [id number] Patient notified. Duarte Connie Allergies As of [...] DUARTE SHER on 08/27/19 eusebio [facility]07[facility]) Normal [address] [place] [address] [facility] JEIMY MORALES ([id number]) 1985 BELLE Hong Date Time Provider Department ([id number]) 07/31/19 MICKI VIZCARRA INTML During your visit today, we recorded the following informati on about you: Michaela Whelan LPN 07/31/2019 11:45 AM Signed Patient called in and stated that her and her children have bad case of head lice. Her vinyl cutter sent in RX treatment for children since [...] PM Signed Patient called and aware Michaela Whelan LPN Allergies As of Date: 07/31/2019 Noted [...] 07/31/19 progress on 2019-06 PROGRESS HNO ID: [id number] Normal 07-08-2019 [facility] Author: Rocio Steele [facility] Service: ? ([id number]) Author Type: Physician Type: Progress Notes Filed: [...] physical exam as above was completed in [facility] today July 08, 2019 and is unchanged from 04/22/19 except where noted. cnov on 2019-07-08 CNOV Office Visit (SPAGBA) Normal 07-08-20 19 [facility] JEIMY MORALES ([id number]) 1985 [facility] Date Time Provider Department Center 07/08/19 11:00 AM ROCIO STEELE ([id number]) During your visit today, we recorded the [...] except where noted. Referring Provider: ROCIO STEELE [[id number]] Allergies As of Date: 07/08/2019 Noted Allergy [...] 07/08/19 procedure on 2018-07 PROCEDURE HNO ID: [id number] Normal 06-12-2019 [facility] Author: Rocio Steele [place] ([id number]) Service: ? Author Type: Physician Type: Procedures [...] on 2019-05 OBSOLETE Procedure (SHAR) Normal 06-12-2019 [facility] JEIMY MORALES ([id number]) 1985 [facility] Date Time Provider Department Center 06/12/19 11:00 AM ROCIO STEELE ([id number]) During your visit today, we recorded the [...] Further, nerves are often tested in a mhxu-fg-eifs comparison, as well as, lena tional extremities and are crucial in isolating the area of the spine and/or distal nerve that has been damaged so that the diagnosis and treatment of the patient c an be achieved. Therefore, the muscles and nerves examined were medically necessary. Referring Provider: ROCIO STEELE [[id number]] Allergies As of Date: 06/12/2019 Noted Allergy [...] Order(s):NEEDLE EMG EA EXTREMTY W/PARASPINL AREA COMPLETE [[id number]] Order #: [id number] MOTOR AND/SENS 11-12 NRV CNDJ PRECONF ELTRODE LIMB [[id number] ] Order #: [id number] Prescriptions as of 06/12/2019 Sig: BENZOCAINE-MENTHOL 15 [...] nerv es are often tested in a zuaz-dy-ykou comparison, as well as, additional extremities and [...] on 2019-05-27 CNCO Letter Text Normal 05-27-2019 [facility] ([id number]) xr lumbar 4v ap/lat/ flex/ext on 2019-04-22 XR LUMBAR 4V * * *Final Report* * * Normal [facility] AP/LAT/ FLEX/EXT DATE OF EXAM: Apr 22 2019 12:[address] [place] [address] System AWX 5231 - XR LUMBAR 4V AP/LAT/ FLEX/EXT / 4422 ([id number]) PROCEDURE REASON: Acute left-sided low back pain [...] tissues appear normal. IMPRESSION: Within normal limits. Solar Resource Assessor: PSCB Transcribe Date/Time: Apr 23 2019 1:22P Dictated by : MARIA GUADALUPE ABRAHAM MD This examination was interpreted and the report reviewed and electronically signed by: MARIA GUADALUPE ABRAHAM MD on Apr 23 2019 1:24PM EST urinalysis on 10-30 Bilirubin, Urine Negative Negative Normal 10-30-2018 [facility] (41008) Comment: Performed By: #### CBC, CMP, LIPA, HCGED #### [facility] [address] Clarity Nom (U) Clear Clear Normal 10-30-2018 [facility] (71401) Comment: Performed By: #### CBC, CMP, LIPA, HCGED #### [facility] [address] Color Nom (U) Yellow Yellow Normal 10-30-2018 [facility] (46459) Comment: Performed By: #### CBC, CMP, LIPA, HCGED #### [facility] [address] Glucose Ql (U) Negative Negative Normal 10-30-2018 [facility] (31086) Comment: Performed By: #### CBC, CMP, LIPA, HCGED #### [facility] [address] Hemoglobin/Blood,Ur Negative Negative Normal 10-30-2018 [facility] (65527) Comment: Performed By: #### CBC, CMP, LIPA, HCGED #### [facility] [address] [place], [place] [id number] Ketones Ql (U) Negative Negative Normal 10-30-2018 [facility] (24362) Comment: Performed By: #### CBC, CMP, LIPA, HCGED #### [facility] [address] Leukest Negative Negative Normal 10-30-2018 [facility] (97841) Comment: Performed By: #### CBC, CMP, LIPA, HCGED #### [facility] [address] Nitrite Ql (U) Negative Negative Normal 10-30-2018 [facility] (19625) Comment: Performed By: #### CBC, CMP, LIPA, HCGED #### [facility] [address] [place] [address] pH (Bld) 6.5 5.0-8.0 Normal 10-30-2018 [facility] jacquelinetal (09825) Comment: Performed By: #### CBC, CMP, LIPA, HCGED #### [facility] [address] [place] [address] Protein mass conc (U) Negative Negative mg/dL Normal 10-31-19 19 [facility] (10382) Comment: Performed By: #### CBC, CMP, LIPA, HCGED #### [facility] [address] [place] [address] Specific Shaw, Ur <=1.005 1.001-1.029 Normal [facility] (58761) Comment: Performed By: #### CBC, CMP, LIPA, HCGED #### [facility] [address] [place] [address] Urobilinogen Qn (U) 0.2 0.2-1.0 Normal 10-30-2018 [facility] (97724) Comment: Performed By: #### CBC, CMP, LIPA, HCGED #### [facility] [address] [place] [address] lipase on 2018-10-20 1 Lipase enzyme act/vol 17 16-61 U/L Normal 10-31-[address] [place] [address] (29350) Comment: Performed By: #### CBC, CMP, LIPA, HCGED #### [facility] [address] [place] [address] ed prov note on 201 03-25-11 Protein mass HNO ID: [id number] Normal 10-31-19 [facility] conc Author: Abebe Rivera MD ([id number]) Service: ? Author Type: Physician Type: ED Provider Notes Filed: 10/30/2018 12:28 AM Note Text: ED Provider Note Patient Name: Jeimy Morlaes SERVICE DATE: 10/29/18 History Patient presents with: Abdominal Pain: for the past 5 days Nausea Patient complains of epigastric pain that has migrated to [facility] over the past five days; she states she has been anorexic and nauseat ed today; she has had chills but no fever. She was seen at [place] last [facility] and had an US RUQ and lab [...] fluid, free air, or other acute changes. Solar Resource Assessor: SHANA Transcribe Date/Time: Oct 29 2018 11:05P [...] hughes did just have RUQ US at [place]. She has no evidence for appendicitis , no evidence for cholecystitis; questionable hypodense nodule; I believe patient could have gastritis or possible PUD. Will have patient follow-up with GI construction driller, Dr Sesay, for liver nodule and above; will send home on [facility]. MDM SIGNATURE: MD Abebe Garcia MD 10/30/18 0028 ed note on ED NOTE HNO ID: [id number] Normal 10-30-2018 [facility] (64458) Author: Keli (Rn) LINDA Conte Service: ? Author Type: Registered Nurse Type: ED Notes Filed: 10/30/2018 12:47 AM Note Text: pt given dc instructions and follow up care she verbalized u nderstanding. ED NOTE HNO ID: [id number] Normal 10-30-2018 [facility] (70063) Author: Keli DiazRn) LINDA Conte Service: ? Author Type: Registered Nurse Type: ED Notes Filed: 10/30/2018 12:15 AM Note Text: dr rivera in room to talk with pt ED NOTE HNO ID: [id number] Normal 10-30-2018 [facility] (97821) Author: Keli DiazRn) LINDA Conte Service: ? Author Type: Registered Nurse Type: ED Notes Filed: 10/29/2018 11:02 PM Note Text: Patient returned to the Emergency Department.from CT ED NOTE HNO ID: [id number] [place] 10-30-2018 [facility] (77013) Author: Keli DiazRn) LINDA Conte Service: ? Author Type: Registered Nurse Type: ED Notes Filed: 10/29/2018 11:02 PM Note Text: Clean catch urine specimen obtained and sent. ED NOTE HNO ID: [id number] [place] 10-30-2018 [facility] (68928) Author: Keli DiazRn) LINDA Conte Service: ? Author Type: Registered Nurse Type: ED Notes Filed: 10/29/2018 10:50 PM Note Text: pt ambulated to restroom to get urine sample ED NOTE HNO ID: [id number] [place] 10-30-2018 [facility] (47156) Author: Daryl DiazRnCynthia Chacon RN Service: Nursing Author Type: Registered Nurse Type: ED Notes Filed: 10/29/2018 10:31 PM Note Text: Pt reports o Ed c/o right side abd pain and nuasea for the p ast 5 days, denies vomiting. Pt seen at [place] on Saturday, US normal, pe r pt. Pt reports pain moved to lower side today. Had a BM yesterday, mentioned that she feels like she has to have a BM but not able to do it. P t alert and oriented, denies any other discomfort. ED NOTE HNO ID: [id number] [place] 10-30-2018 [facility] (92247) Author: Keli DiazRn) LINDA Conte Service: ? Author Type: Registered Nurse Type: ED Notes Filed: 10/29/2018 11:03 PM Note Text: dr rivera in room to talk with pt ct abd/pel w ivcon on 2018-10-30 CT ABD/PEL W * * *Final Report* * * Normal 10-20 [facility] IVCON DATE OF EXAM: Oct 29 2018 11:03PM ([id number]) [facility] - CT ABD/PEL W IVCON / [...] fluid, free air, or other acute changes. Solar Resource Assessor: PSCB Transcribe Date/Time: Oct 29 2018 11:05P Dictated by : SANIYA BUTCHER MD This examination was interpreted and the report reviewed and electronically signed by: SANIYA BUTCHER MD on Oct 29 2018 11:20PM EST [id number] metabolic panel on 2018-10-30 Albumin mass conc 4.5 3.9-4.9 g/dL Normal 10-30-2018 [facility] (00124) Comment: Performed By: #### CBC, CMP, LIPA, HCGED #### [facility] 1000 [facility] [phone] ALP enzyme act/vol 55 34-123 U/L Normal 10-30-2018 [facility] (74794) Comment: Performed By: #### CBC, CMP, LIPA, HCGED #### [facility] 1000 [facility] [phone] ALT enzyme act/vol 18 7-38 U/L Normal 10-30-2018 [facility] [facility] ([id number] Comment: Performed By: #### CBC, CMP, LIPA, HCGED #### [facility] [address] [facility] [phone] Anion gap molar conc 11 9-18 mmol/L Normal 9 [facility] (34866) Comment: Performed By: #### CBC, CMP, LIPA, HCGED #### [facility] [address] [facility] [phone] AST enzyme act/vol 17 13-35 U/L Normal 10-30-2018 [facility] (22814) Comment: Performed By: #### CBC, CMP, LIPA, HCGED #### [facility] [address] [facility] [phone] Bilirubin mass conc 0.3 0.2-1.3 mg/dL Normal 10-30-2018 [facility] (03195) Comment: Performed By: #### CBC, CMP, LIPA, HCGED #### [facility] [address] [phone] Calcium mass conc 9.8 8.5-10.2 mg/dL Normal 10-30-2018 [facility] (78283) Comment: Performed By: #### CBC, CMP, LIPA, HCGED #### [facility] [address] [phone] Chloride molar conc 99 97-105 mmol/L Normal 10-30-2018 [facility] (18410) Comment: Performed By: #### CBC, CMP, LIPA, HCGED #### [facility] [address] [phone] CO2 molar conc 28 22-30 mmol/L Normal 10-30-2018 [facility] (51092) Comment: Performed By: #### CBC, CMP, LIPA, HCGED #### [facility] [address] [phone] Creatinine mass conc 0.71 0.58-0.96 mg/dL Normal [address] [place] [address] (75374) Comment: Performed By: #### CBC, CMP, LIPA, HCGED #### [facility] [address] [place], [place] [phone] eGFR- Amer. >60 Normal 10-30-2018 [facility] (94054) Comment: Performed By: #### CBC, CMP, LIPA, HCGED #### [facility] [address] [place] [phone] GFR/1.73 sq M predicted >60 mL/min/{1.73_m2} Normal 10-30-2018 [facility] among non-blacks MDRD (30634) vol rate/area (S/P/Bld) Comment: Result Comment: eGFR [...] By: #### CBC, CMP, LIPA, HCGED #### [facility] [address] [facility] [phone] Glucose mass conc 99 74-99 mg/dL Normal 10-30-2018 [facility] (47160) Comment: Result Comment: The [place] [employer] (ADA) provides guidance for cutoff [...] for diagnosis of diabetes. Reference: Standards of [facility] Care in Diabetes 2016, [employer] [place] [employer]. Diabetes Care. 2016.39(Suppl 1). Performed By: #### CBC, CMP, LIPA, HCGED #### [facility] [address] [facility] [phone] Potassium molar conc 3.5 3.7-5.1 mmol/L Low 9 [facility] (22629) Comment: Performed By: #### CBC, CMP, LIPA, HCGED #### [facility] [address] [facility] [phone] Protein mass conc 7.4 6.3-8.0 g/dL Normal 10-30-2018 [facility] (62529) Comment: Performed By: #### CBC, CMP, LIPA, HCGED #### [facility] [address] [facility] [phone] Sodium molar conc 138 136-144 mmol/L Normal 10-30-2018 [facility] (00795) Comment: Performed By: #### CBC, CMP, LIPA, HCGED #### [facility] [address] [facility] [phone] Urea nitrogen mass conc 15 7-21 mg/dL Normal 2018 [facility] (39621) Comment: Performed By: #### CBC, CMP, LIPA, HCGED #### [facility] [address] [phone] cbc on 2018-10-30 Erythrocyte distribution 13.3 11.5-15.0 % Normal 10-30 [facility] (21792) width Ratio (RBC) Comment: Performed By: #### CBC, CMP, LIPA, HCGED #### [facility] [address] [place], [place] [phone] Hematocrit Volume Fraction 42.5 36.0-46.0 % Normal [facility] (52211) (Bld) Comment: Performed By: #### CBC, CMP, LIPA, HCGED #### [facility] [address] [place] [address] Hemoglobin mass conc 13.6 11.5-15.5 g/dL Normal 9 [facility] ([facility]) (63167) Comment: Performed By: #### CBC, CMP, LIPA, HCGED #### [facility] [address] [place], [place] [phone] MCH Entitic mass (RBC) 30.1 26.0-34.0 pG Normal 019 [facility] (88495) Comment: Performed By: #### CBC, CMP, LIPA, HCGED #### [facility] [address] [place], [place] [phone] MCHC mass conc (RBC) 32.0 30.5-36.0 g/dL Normal 9 [facility] (59066) Comment: Performed By: #### CBC, CMP, LIPA, HCGED #### [facility] [address] [place], [place] [phone] MCV Entitic volume (RBC) 94.0 80.0-100.0 fL Normal 10-20 [facility] (90828) Comment: Performed By: #### CBC, CMP, LIPA, HCGED #### [facility] [address] [place], [place] [phone] Platelet mean volume 9.0 9.0-12.7 fL Normal 9 [facility] (40864) Entitic volume (Bld) Comment: Performed By: #### CBC, CMP, LIPA, HCGED #### [facility] [address] [facility] [phone] Platelets #/vol (Bld) 285 150-400 k/uL Normal 10-31-19 19 [facility] (88976) Comment: Performed By: #### CBC, CMP, LIPA, HCGED #### [facility] [address] [phone] RBC #/vol (Bld) 4.52 3.90-5.20 m/uL Normal 10-30-2018 [facility] (18645) Comment: Performed By: #### CBC, CMP, LIPA, HCGED #### [facility] [address] [phone] WBC #/vol (Bld) 6.60 3.70-11.00 k/uL Normal 10-30-2018 [facility] (50816) Comment: Performed By: #### CBC, CMP, LIPA, HCGED #### [facility] [address] [place] [phone] beta hcg quant, ed on 2018-10-30 Beta HCG Quant, ED <0.1 <5.0 Normal 10-30-2018 [facility] (52358) Comment: Result Comment: QUANTITATIVE HCG NORMAL RANGES Weeks of Gestation (Weeks Si nce LMP) 3 Weeks (5.8-71.2 mIU/mL) 4 Weeks (9.5-750 mIU/mL) 5 Weeks (217-7138 mIU/mL) 6 Weeks (158-18163 mIU/mL) 7 Weeks (3697-080948 mIU/mL) 8 Weeks (38681-757152 mIU/mL ) 9 Weeks (40075-296486 mIU/mL ) 10 Weeks (74476-779393 mIU/m L) 12 Weeks (46689-344272 mIU/m L) Referenced to 4th IS of NIBS C Performed By: #### CBC, CMP, LIPA, HCGED #### [facility] [address] [facility] [phone] allied health on 07-11-10 [facility] ID: [id number] Normal 04-11-[address] [place] [address] Author: REGINA Toro (Ct) ([id number]) Service: Radiology Author Type: Clinical Material Handling Supervisor Type: Allied Health Filed: 10/29/2018 11:05 PM [...] [id number] 8. Body Temperature 99 [degF] 04-08-2020 [facility] (12636) Body weight 65.41 kg 04-08-2020 [facility] (29190) BP Diastolic 90 mm[Hg] 04-08-2020 [facility] (36508) BP Systolic 150 mm[Hg] 04-08-2020 [facility] (06131) Height 167.6 cm 04-08-2020 [facility] (79515) Pulse (Heart Rate) 96 /min 04-08-2020 [facility] wild[facility] (01179) Pulse Oximetry 96 % 04-08-2020 [facility] (50741) Encounters Date Type Reason Provider Location 10-30-2018 - Emergency department [facility] 10-30-2018 patient visit RIVERA ([id number]) 03-24-2020 Follow-up encounter 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) Ramirez [facility] Comment: ED Follow Up 04-22-2020 - Letter encounter Micki Dias ity 04-22-2020 [facility] 04-08-2020 - Patient encounter Lumbar radiculopathy Neeta Goins [facility] 04-08-2020 procedure (Auto 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) [facility] Comment: Lumbar radiculopathy (Primar y Dx); Elevated blood pressure read ing without diagnosis of hypertension; Screening for lipid disorder s; Cigarette smoker 03-24-2020 - Patient encounter 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) [facility] 03-24-2020 procedure Ramirez 04-08-2020 - Subsequent Lumbar radiculopathy Xr [facility] 04-08-2020 hospital visit by [facility] physician Comment: Lumbar radiculopathy [M54.16 ] 04-28-2020 - 04-28-2020 Telephone encounter Micki Logan [facility] Comment: Results Missed Appointment (3rd no s how ) 04-22-2020 - 04-22-2020 Telephone encounter Micki Logan [facility] Comment: Missed Appointment (Second m issed appointment) Procedures Procedure Name Date Provider Location [facility] spine lumbosacral 2/3 04-08-2020 Neeta Patino (Auto 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) [facility] (34828) views [place] Plan of Treatment Plan Description Date Location HPV TESTING HPV TESTING 06-21-2021 - [facility] 06-21-2021 ([id number]) PAP TESTING PAP TESTING 06-21-2021 - [facility] 06-21-2021 (56061) INFLUENZA (#1) INFLUENZA (#1) 2020 - [facility] 03-22-2020 (31312) DTAP,TDAP,TD (1 - DTAP,TDAP,TD (1 - Tdap) 2002 - [facility] Tdap) 2002 (51370) HEPATITIS C SCREENING HEPATITIS C SCREENING 2001 - [facility] 2001 (54989) HIV SCREENING HIV SCREENING 2001 - [facility] 2001 (98560) CBC CBC Lab Routine Elevated 04-08-2021 [facility] blood pressure reading (96061) without diagnosis of hypertension 1 Occurrences starting 04/08/2020 until 04/08/2021 Comment: 1 Occurrences starting 04/08 until 04/08/2021 COMP METABOLIC PANEL COMP METABOLIC PANEL Lab 04-08-2021 [facility] (99330) Routine Elevated blood pressure reading without diagnosis of hypertension 1 Occurrences starting 04/08/2020 until 04/08/2021 Comment: 1 Occurrences starting 04/08 until 04/08/2021 LIPID PANEL BASIC LIPID PANEL BASIC Lab Routine 04-08-2021 [facility] (57366) Screening for lipid disorders 1 Occurrences starting 04/08/2020 until 04/08/2021 Comment: 1 Occurrences starting 04/08 until 04/08/2021 TSH BLD TSH BLD Lab Routine Elevated blood 04-08-2021 [facility] (16885) pressure reading without diagnosis of hypertension 1 Occurrences starting 04/08/2020 until 04/08/2021 Comment: 1 Occurrences starting 04/08 until 04/08/2021 no information [facility] (55484) Payers Payer Name Policy Number Location [employer] [id number] [facility] (44 195) The following information is from the original human readable contentNo Payer Records FoundNo Payer Records FoundNo Payer Records FoundNo Payer Records FoundNo Payer Records FoundNo Payer Records FoundNo Payer Records Found Social History Type Social History Date Location Description Tobacco smoking status Current some day smoker 04-08-2020 - [facility] 04-08-2020 (89533) History of tobacco use Cigarette Smoker [facility] (13604) Cigarettes smoked 04-08-2020 - [facility] current (pack per day) 04-08-2020 (63232) - Reported Tobacco use and Never used 04-08-2020 - [facility] exposure 04-08-2020 (12083) Alcohol intake Current drinker of 04-08-2020 [facility] wilda alcohol (finding) 04-08-2020 (07656) Alcohol Comment socially 09-26-2017 - [facility] 09-26-2017 (39696) Sex Assigned At Not on file [facility] (81698) Exposure to SARS-CoV-2 Not sure [facility] (event) (55021) The following information is from the original human readable contentNo Social History Records FoundNo Social History Records FoundNo Social History Records FoundNo Social History Records FoundNo Social History Records FoundNo Social History Records FoundNo Social History Records Found Advance Directives No Advanced Directives Records Found Documents on File Type Date Recorded 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 With low back pain, pain may also occur in the buttocks or legs. Simple exercises and good posture can help most cases of low back pain. [place] few cases, medications, physical therapy or surgery [...] have low back pain? 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 References [employer] Neurological Disorders and Stroke. Low Back Pain Fact Sheet. Accessed 11/11/2012 [employer]. Low Back Pain. Accessed 11/11/2012 [employer]. Back Pain Facts & Statistics. Accessed 11/11/2012 Tip SD, Jaja S, Ana RS. Back pain made simple: an approach based on principles and evidence.[facility] J Med. 2009;76:393?399 ? Copyright 0664-1506 The [facility]. All rights reserved This information is provided by the [facility] and is not intended to replace the medical advice of your doctor or health care provider. Please consult your health care provider for advice about a specific medical condition. For additional health information, please contact the Center for Consumer Health Information at the [facility] [phone] CESSATION Stopping smoking is the most important [...] desirable brand of cigarettes. ___ Discard your educational therapy teacher. Use matches. Carry your cigarettes in a [...] why you quit. Also remember that a [employer] industry spends billions of dollars each year trying to get people like yourself re-hooked. index#[id number] signed by Neeta Patino (Auto 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) KATY Gonzalez at 04/11/2020 4:57 PM EDT documented in this encounter History of Present Illness Neeta Gonzalez (Auto 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), MIDDLE SCHOOL ASSISTANT PRINCIPAL - 04/08/2020 3:53 PM EDT CHIEF COMPLAINT: Jeimy Morales is a 34 year old female, patient of Dr. Vizcarra, who presents for ER F/U from [facility] for pain in her right buttock that [...] history is provided by the patient. No long distance operator was used. Back Pain This is a [...] she has seen Dr. Steele with [facility] for low back pain and has been [...] Gonzalez APRN.KATY documented in this encounterChai Ramirez ([facility]) - 03/24/2020 4:29 PM EDTED Follow Up: Patient discharged from [facility] ED on 03/22/20. 1. How are you [...] you able to contact the office or construction driller provider prior to your ED visit? Left [...] BE BASED ON THE PRIMARY CLINICAL RECORDS. [facility] provides no warranty or guarantee of the accuracy or completeness of information in this document. UNRECOGNIZED CONTENT PROVIDED BELOW FOR UNRECOGNIZED SECTION Source Comments In the event this information is protected by the Federal Confidentiality of Alcohol and Drug Abuse Patient Records regulations: The Federal rules restrict any use of the information to criminally investigate or prosecute any alcohol or drug abuse patient.[facility] the event this information is protected by the Federal Confidentiality of Alcohol and Drug Abuse Patient Records regulations: The Federal rules restrict any use of the information to criminally investigate or prosecute any alcohol or drug abuse patient.[facility] HospitalIn the event this information is protected by the Federal Confidentiality of Alcohol and Drug Abuse Patient Records regulations: The Federal rules restrict any use of the information to criminally investigate or prosecute any alcohol or drug abuse patient.[facility] HospitalIn the event this information is protected by the Federal Confidentiality of Alcohol and Drug Abuse Patient Records regulations: The Federal rules restrict any use of the information to criminally investigate or prosecute any alcohol or drug abuse patient.[facility] HospitalIn the event this information is protected by the Federal Confidentiality of Alcohol and Drug Abuse Patient Records regulations: The Federal rules restrict any use of the information to criminally investigate or prosecute any alcohol or drug abuse patient.[facility] HospitalIn the event this information is protected by the Federal Confidentiality of Alcohol and Drug Abuse Patient Records regulations: The Federal rules restrict any use of the information to criminally investigate or prosecute any alcohol or drug abuse patient.[facility] HospitalIn the event this information is protected by the Federal Confidentiality of Alcohol and Drug Abuse Patient Records regulations: The Federal rules restrict any use of the information to criminally investigate or prosecute any alcohol or drug abuse patient.[facility] UNRECOGNIZED CONTENT PROVIDED BELOW FOR UNRECOGNIZED [...] in this encounterTelephone Encounter - Timur Vernon ([facility]) - 04/28/2020 1:13 PM EDTLeft message informing [...] DATE CREATED AUTHOR AUTHOR'S ORGANIZATIO N 10/30/2018 [facility] DATE CREATED AUTHOR AUTHOR'S ORGANIZATIO N 04/09/2020 [facility] DATE CREATED AUTHOR AUTHOR'S ORGANIZATIO N 04/29/2020 [facility] DATE CREATED AUTHOR AUTHOR'S ORGANIZATIO N 05/01/2020 [facility] UNRECOGNIZED CONTENT PROVIDED BELOW FOR UNRECOGNIZED SECTION Nursing Notes Michelle Chilel (Leonid) - 04/08/2020 3:40 PM EDTPt here for ER f/u from [facility]. States she was having pain in her R buttocks and radiating down her leg. States it felt like a burning spasm. They gave naproxen, flexeril and a shot in the ER. States she feels like she has lost strength in that leg. documented in this encounter
== END 2019-11-28 14:20 | disposition home or self-care (01) ==
PROVIDERS: Emergency Provider Emergency Medicine; PCP Internal Medicine
DX: M70.51 Other bursitis of knee, right knee (principal); F17.200 Nicotine dependence, unspecified, uncomplicated; W01.0XXA Fall on same level from slipping, tripping and stumbling without subsequent striking against object, initial encounter; Y93.9 Activity, unspecified
CPT/HCPCS: 73564; 99283

== ENCOUNTER 2020-03-22 14:40 | Emergency (ER) | payer MEDICAID, SELFPAY ==
[2020-03-22 14:41] VITALS: BP 150/95; PULSE 102; RESP 16; TEMP 37.1; O2SAT 98; BMI 22.6
--- NOTE | 2020-03-22 14:58 | ED.DCSUM_ITS ---
History of Present Illness Chief Complaint: Back Narrative: This patient is a 34-year-old female who presents with burning right back buttock and leg pain. She states she recently found out there were terminates in her home so she was moving some furniture yesterday. Last night she developed burning pain in her right lower back and buttock which radiates down her leg. She complains of some tingling in the toes of her right foot. No weakness. She is able to ambulate. She denies abdominal pain. No history of b ack surgeries. No fevers. No urinary retention or fecal incontinence. Past Medical History - Allergies and Home Meds Allergies/Adverse Reactions: Allergies latex Allergy (Verified 03/22/20 14:42) Rash Sulfa (Sulfonamide Antibiotics) Allergy (Verified 03/22/20 14:42) Hives sulfamethoxazole [From Bactrim] Allergy (Verified 03/22/20 14:42) Hives trimethoprim [From Bactrim] Allergy (Verified 03/22/20 14:42) Hives Primary Care Physician: Benita Vizcarra MD [Primary Care Provider] - Past Medical History: - - ADHD Smoking Status: Current every day smoker Review of Systems All systems negative except as indicated General: Denies: Fever Eyes: Denies: Visual changes - bilaterally ENT: Denies: Bilateral ear pain Cardiovascular: Denies: Chest pain Respiratory: Denies: Dyspnea Gastrointestinal: Denies: Abdominal pain, Vomiting, Diarrhea Musculoskeletal: Reports: Back pain, Extremity Pain Skin: Denies: Rash Neurological: Reports: Parasthesia. Denies: Headache, Weakness Allergy: Denies: Uticaria Physical Exam Vital Signs/Narrative: Vital Signs Temp Pulse Resp BP Pulse Ox 03/22/20 14:41 98.7 F 102 H 16 150/95 H 98 Inital Vital Signs reviewed: Yes General: Well nourished Head: Normocephalic Eyes: EOMI ENT: Moist mucous membranes Neck: Supple Cardiovascular: Regular rate Respiratory: No distress Abdomen: Soft, Nontender Back: - - Patient does have some right lumbar paraspinal tenderness, no midline tenderness Extremities: - - Normal strength and sensation of the lower extremities 5 out of 5 dorsiflexion plantarflexion extensor hallucis longus Skin: Normal color Neurological: Alert Psychological: Normal affect Diagnostic/Tx/Re-eval - Medical Decision Making Patient's presentation is consistent with a lumbar radiculopathy. She was given intramuscular Toradol here. She was given prescriptions for naproxen and Flexeril. She was advised on supportive care. She was advised to follow-up as an outpatient or to return for new or worsening symptoms and she was discharged. ED Disposition - Plan for ED Patient: Disposition: Home or Assisted Living Diagnosis: Lumbar radiculopathy Instructions: ED LUMBAR RADICULOPATHY Prescriptions: cycloBENZAPRine HCl [Flexeril] 10 mg PO TID PRN #20 tab PRN Reason: Muscle Spasm Prescription Printed Naproxen [Naprosyn] 500 mg PO BID #20 tab Prescription Printed Referrals: Benita Vizcarra MD [Primary Care Provider] -
[2020-03-22] MEDS: Ketorolac 60 MG/2 ML Vial IM (15:04)
== END 2020-03-22 15:25 | disposition home or self-care (01) ==
PROVIDERS: Emergency Provider Emergency Medicine; PCP Internal Medicine
DX: M54.16 Radiculopathy, lumbar region (principal); F17.200 Nicotine dependence, unspecified, uncomplicated
CPT/HCPCS: 96372; 99282